=== PATIENT | male | born 1935 | race Caucasian/White ===

== ENCOUNTER 2018-11-08 15:43 | Outpatient (CLI) | payer OTHER, SELFPAY ==
[2018-11-08] MEDS ORDERED: Lidocaine 2% 11 ML SYR ONE (17:24)
[2018-11-08] MEDS ORDERED: Sodium Chloride 0.9% 15 ML NEB ONE (17:24)
--- NOTE | 2018-11-08 17:31 | HP ---
HISTORY OF PRESENT ILLNESS: Mr. Gasper Lynch is a very pleasant 83-year-old gentleman, who presents [facility] for evaluation of an ulceration of the plantar surface of the left great toe. The patient states that the ulceration has been present for approximately 5 years. He states that over this period of time, he has an ulceration with a dry dressing. He states that intermittently he also treats the ulceration with triple antibiotic ointment. The patient was referred to the [facility]ound [facility] by Dr. Dsouza. The patient has no other complaints today. He denies any fever or chills. PAST MEDICAL HISTORY: 1. Hypertension. 2. Diabetes mellitus. 3. Atrial fibrillation. 4. Sick sinus syndrome. 5. Benign prostatic hypertrophy. PAST SURGICAL HISTORY: 1. Tonsillectomy. 2. Right second toe amputation, date of procedure 10/30/2008. 3. Amputation of right great third and more proximal second toe amputation, date of procedure 11/10/2008. 4. Pacemaker placement. 5. Right hip replacement. 6. ORIF of distal humerus fracture. MEDICATIONS: 1. Coreg. 2. Coumadin. 3. Metformin. 4. Glyburide. 5. Stool softener. 6. Flomax. 7. Tylenol p.r.n. ALLERGIES: NO KNOWN DIAGNOSED ALLERGIES. SOCIAL HISTORY: Social history is negative for tobacco or EtOH use. FAMILY HISTORY: Family history significant for coronary artery disease. The patient states that his mother was diagnosed with coronary artery disease. PHYSICAL EXAMINATION: VITAL SIGNS: Pulse 79, respirations 19, and blood pressure 159/75. GENERAL: An 83-year-old gentleman, sitting on the stretcher in examination room, in no acute distress. HEENT: Normocephalic and atraumatic. NECK: No nuchal rigidity. CHEST: Clear to auscultation. CV: Regular rate and rhythm. ABDOMEN: Soft. EXTREMITIES: An ulceration of the plantar surface of the left great toe is present, which measures approximately 1.0 x 1.4 cm. Granulation tissue is present within the wound margins. Nonviable tissue present within the wound margins was debrided with an excisional full-thickness debridement with the use of a curette. Callus, desiccated tissue, and undermining at the periphery of the wound were eliminated with the use of scissors. No purulent drainage is associated with the wound. No erythema of the skin surrounding the wound is present. No maceration of the skin of the periwound is noted. Posterior tibial pulse is easily palpable on the left. No significant edema of the left foot is present on exam today. NEUROLOGIC: Grossly nonfocal. ASSESSMENT AND PLAN: 1. Ulceration of plantar surface of the left great toe as described above. Dressing changes of Medihoney and gauze will be initiated today. These dressing changes are to be performed on a daily basis after cleansing and irrigation. No antibiotics will be prescribed today based upon the appearance of the wound. The importance of offloading and achieving the healing of the ulceration has been discussed at length with the patient. I will see Mr. Lynch again in 3 weeks. The patient understands and is in agreement with the preceding treatment plan. 2. Hypertension. 3. Diabetes mellitus. 4. Atrial fibrillation. 5. Sick sinus syndrome. 6. Benign prostatic hypertrophy. Job ID: [id number]
== END 2018-11-08 15:44 | disposition home or self-care (01) ==
LOC: WCC 15:43
PROVIDERS: ATTEND Family Medicine
DX: E11.621 Type 2 diabetes mellitus with foot ulcer (principal); L97.529 Non-pressure chronic ulcer of other part of left foot with unspecified severity; I48.91 Unspecified atrial fibrillation; I10 Essential (primary) hypertension; I49.5 Sick sinus syndrome; N40.0 Benign prostatic hyperplasia without lower urinary tract symptoms
CPT/HCPCS: 11042; 99203; A4218; G0463

== ENCOUNTER 2019-02-06 04:46 | Inpatient (IN) | payer MEDICARE, SELFPAY ==
[2019-02-06 05:22] LABS: #Basophils 0.1 thou/uL (0.0-0.2); #Eosinphils 0.5 thou/uL (0.0-0.7); #Lymphocytes 0.9 thou/uL (1.20-3.40); #Monocytes 0.7 thou/uL (0.11-0.59); #Neutrophils 10.9 thou/uL (1.40-6.50); %Basophils 0.6 % (0.0-1.0); %Lymphocytes 6.6 % (21.0-51.0); %Monocytes 5.2 % (0.0-10.0); %Neutrophils 83.5 % (42.0-75.0); Mean Corpuscular HGB CONC 31.6 g/dL (32.0-36.0); Mean Corpuscular Hemoglobin 30.1 pg (27.0-31.0); Mean Corpuscular Volume 95.1 fL (78.0-98.0); Mean Platelet Volume 7.1 fL (7.4-10.4); Platelet Count 274 thou/uL (130-400); RBC Distribution Width 12.8 % (11.5-14.5); Red Blood Cell (RBC) Count 3.34 mill/uL (4.70-6.10)
[2019-02-06 05:43] LABS: ALT (SGPT) 18 U/L (8-55); AST (SGOT) 30 U/L (5-34); Albumin 3.8 g/dL (3.4-4.8); Alkaline Phosphatase 119 U/L (40-150); Anion Gap 16 mmol/L (10-20); BUN (Urea Nitrogen) 19 mg/dL (8.4-25.7); Bilirubin, Total 1.3 mg/dL (0.2-1.2); Calc. Creatinine Clearance 0 mL/min (70-130); Calcium 8.8 mg/dL (7.8-10.44); Carbon Dioxide 19 mmol/L (23-31); Chloride 96 mmol/L (98-107); Estimated GFR-MDRD 81; Globulin 2.7 g/dL (2.4-3.5); Glucose 203 mg/dL (83-110); Potassium 4.5 mmol/L (3.5-5.1); Protein, Total 6.5 g/dL (5.8-8.1); Sodium 126 mmol/L (136-145)
[2019-02-06 06:17] LABS: PTT 66.9 SEC (22.9-36.1); Prothrombin Time 71.3 SEC (12.0-14.7)
[2019-02-06 06:19] LABS: INR-International Normal Ratio 8.8
[2019-02-06] MEDS ORDERED: Phytonadione 10 MG/ML AMP SLOW IVP SCH (06:30)
[2019-02-06] MEDS ORDERED: HUM PROTHROMBIN CPLX(PCC)4FACT 1,000 UNIT in Admixture Fee 40 EACH IV SCH (07:00)
--- NOTE | 2019-02-06 07:03 | CT ---
CT HEAD WITHOUT CONTRAST: INDICATIONS: Fall with head injury. Pain. COMPARISON Reference made to an 02/27/2015 exam. FINDINGS: There is mild age-related parenchymal volume loss with compensatory dilatation of the ventricular sys tem. There is a small hyperdensity of the anterior right temporal lobe with some rounding linear-rodolfo ented hyperattenuation. No significant mass effect. The calvarium is intact. There is persistent c omplete opacification of the visualized right maxillary sinus. IMPRESSION: Abnormal round hyperdensity, approximately 6 mm in size, with surrounding linear-oriented hyperattenu ation that may relate to subarachnoid hemorrhage related to this finding. Recommend [facility] of the [place] for further evaluation. Telephone call of findings placed to the ER physician, Yoli Lugo M.D., at 0538 hours on 9. CODE CR POS: [facility]
[2019-02-06] MEDS ORDERED: Phytonadione 10 MG/ML AMP ONE (07:08)
[2019-02-06 07:34] LABS: Lactic Acid 1.3 mmol/L (0.5-2.2)
--- NOTE | 2019-02-06 07:53 | RAD ---
PORTABLE CHEST ONE VIEW: 02/06/2019 5:25 a.m. HISTORY: Syncope. COMPARISON: 02/27/2015 FINDINGS: A left-sided pacemaker device remains in place. The heart size is normal. The lungs are well expand ed without focal areas of consolidation, pneumothoraces, or pleural effusions. There is a questionab le mass in the right suprahilar region. This should be evaluated with a CT scan. CODE T CODE LN POS: [facility]
--- NOTE | 2019-02-06 08:01 | RAD ---
RIGHT FEMUR TWO VIEWS: HISTORY: Fall one day ago with right hip pain. COMPARISON: 12/17/2013 FINDINGS: Two views of the right femur show the patient to be status post right hip arthroplasty without periha rdware lucency or fracture. Heterotopic bone formation is seen, superior to the greater trochanter. Moderate to severe degenerative changes are seen in the right knee. IMPRESSION: No evidence of acute osseous abnormality. POS: [facility]
--- NOTE | 2019-02-06 08:07 | RAD ---
SINGLE VIEW PELVIS: HISTORY: Fall with right hip pain and right leg pain. COMPARISON: 06/07/2014 FINDINGS: A single view of the pelvis shows no evidence of acute fracture or dislocation. The patient has a ri ght hip prosthesis. There are remove healed fractures of the right superior and inferior pubic rami. Heterotopic bone formation is seen above the right greater trochanter and along the left lesser tro chanter. IMPRESSION: No evidence of acute osseous abnormality. POS: [facility]
[2019-02-06] MEDS ORDERED: Acetaminophen 500 MG TAB ONE (08:25)
[2019-02-06] MEDS ORDERED: Acetaminophen 1,000 MG in Premix Bag 1 BAG IVPB SCH (08:30)
[2019-02-06 08:48] LABS: INR-International Normal Ratio 2.2; PTT 39.1 SEC (22.9-36.1); Prothrombin Time 24.1 SEC (12.0-14.7)
[2019-02-06] MEDS ORDERED: Dextrose 50% Abboject 50 ML SYRINGE SLOW IVP PRN (09:24)
[2019-02-06] MEDS ORDERED: Ondansetron PF 4 MG/2 ML Vial IVP PRN (09:24)
[2019-02-06] MEDS ORDERED: Dextrose 5% in Water 1,000 ML IV PRN (09:24)
[2019-02-06] MEDS ORDERED: Promethazine HCl 25 MG/ML VIAL IM PRN (09:24)
--- NOTE | 2019-02-06 09:41 | CT ---
PELVIC CT SCAN WITHOUT IV CONTRAST: Date: 02/06/19 HISTORY: Injury due to trauma, acetabular fracture. FINDINGS: Total right hip replacement changes are noted with some associated soft tissue ossification changes, as well as some prominent enthesophytic ossification changes involving the left lesser tuberosity and the iliopsoas tendon insertion. Old healed fracture with associated deformity involving the right tracy perior ischiopubic ramus. Comminuted acetabular fracture is noted, including comminuted anterior column component with a vertic ally oriented displaced fracture, with up to 7 mm of displacement extending into the anterior iliac w ing. Nondisplaced posterior column fracture into the margin of the ischiopubic ramus. IMPRESSION: Acute comminuted acetabular fracture as above. Total right hip replacement changes with extensive met al artifact. Old, healed right superior and inferior ischiopubic rami fractures. Extensive ossificati on at the iliopsoas lesser tuberosity insertion on the left. POS: [facility]
[2019-02-06] MEDS: Sodium Chloride 0.9% 1,000 ML IV SCH ×2 (09:50→18:01)
[2019-02-06] MEDS ORDERED: Morphine 2 MG/ML SYRINGE SLOW IVP PRN (10:06)
--- NOTE | 2019-02-06 10:36 | CON ---
DATE OF CONSULTATION: CHIEF COMPLAINT: Right hip pain. HISTORY OF PRESENT ILLNESS: Mr. Lynch is an 83-year-old male, who was bringing his trash can yesterday evening. The patient lost balance and fell. He fell at the edge of the driveway into a drainage ditch. He had pain in the hip. He was unable to ambulate. He was taken to the emergency department by EMS. X-rays were obtained, which demonstrated an acetabulum fracture on the right hip. Remainder of trauma workup has also revealed a subarachnoid hemorrhage on his brain CT scan. He is being admitted to the hospital, but is currently still in the emergency department. He is comfortable at rest. He is awake and alert and talkative. I have treated the patient approximately 3 years ago for a distal humerus fracture as well. PAST MEDICAL HISTORY: Includes hypertension, diabetes, atrial fibrillation, and sick sinus syndrome as well as BPH. PAST SURGICAL HISTORY: Tonsillectomy; previous right first and second toe removal, amputation; open reduction and internal fixation of right distal humerus fracture; and right hemiarthroplasty for fracture. MEDICATIONS: 1. Coreg. 2. Metformin. 3. Glyburide. 4. Flomax. 5. Tylenol. 6. This patient takes stool softeners. 7. Coumadin. ALLERGIES: NO KNOWN DRUG ALLERGIES. SOCIAL HISTORY: The patient denies tobacco, alcohol, or drug use. He lives independently with his . PHYSICAL EXAMINATION: VITAL SIGNS: Stable. The patient is normotensive, 98% on room air. GENERAL: He is lying supine, alert, in no apparent distress. HEENT: Normocephalic and atraumatic. RESPIRATORY: Breathing comfortably. ABDOMEN: Soft, nontender, and nondistended. MUSCULOSKELETAL: The patient's right leg has pain with motion. He is able to flex and extend the foot and ankle. He has a warm and well-perfused foot. Palpable pulses. He has pain with hip motion. IMAGING DATA: X-rays of the pelvis as well as CT scan of the pelvis demonstrate an anterior column type acetabular fracture with slight displacement. There is osteoporotic appearance of the bone. The patient has a hemiarthroplasty, which is in place without evidence of loosening. The fracture is acute. IMPRESSION: Right acetabulum fracture with history of hemiarthroplasty in an elderly male. PLAN: At this point, I think the patient will best be treated with nonoperative management of his acetabular fracture. We can allow this to heal as is. I think the fixation would be difficult given that he has osteoporotic bone. If he developed ongoing pain or post-traumatic arthritis, we could convert his hemiarthroplasty to a total hip arthroplasty in the future. Hopefully, this would not be necessary. For now, he can be toe-touch weightbearing on the right side and can mobilize with the physical therapy. He will need observation for his head injury as well. He likely will need placement to rehab facility until he is more mobile. We will continue to follow. Job ID: [id number]
[2019-02-06] MEDS: HumaLOG 300 UNITS/3 ML VIAL SC PRN ×2 (12:13→22:31)
--- NOTE | 2019-02-06 15:45 | HP ---
TRAUMA SURGEON: Dr. Cash. CONSULTING PHYSICIAN: Dr. Venegas of Neurosurgery and Dr. Lynch of Orthopedic Surgery. HISTORY OF PRESENT ILLNESS: The patient is an 83-year-old male who presented to the emergency department via EMS after he had a mechanical fall into a ditch. The patient reported he had just brought up the trash cans from the end of the road when it tipped over and he fell with the trash cans into a ditch about 5 to 6 feet. The patient is on Coumadin. He is not exactly sure why he takes Coumadin. He reports he did have a loss of consciousness as well. His neighbor saw him, and his GCS was 15. He was alert and awake and oriented x3. Upon his arrival, EMS was contacted. The patient also complained of right thigh and hip tenderness. Evaluation by the emergency room physician demonstrated the patient had concern for a right hyperdensity with questionable surrounding subarachnoid hemorrhage as well as a right-sided acetabular fracture near his right hip prosthesis. Dr. Venegas of Neurosurgery and Dr. Lynch of Orthopedic Surgery were both consulted. The patient also had an INR of 8.8 for which he was given Kcentra and 10 mg of vitamin K in the emergency department. The patient also was hyponatremic with a sodium of 126 and a chloride of 96. He did report that he had not been eating and drinking as well as previously and did have recent exposure to significant heat outside for which he says that he feels he is dehydrated and then was not able to get enough water intake. REVIEW OF SYSTEMS: All additional 10-point review of systems negative except as indicated above. PAST MEDICAL HISTORY: The patient is a poor historian, but reports he has a pacemaker and diabetes. PAST SURGICAL HISTORY: Right elbow surgery, right hip replacement, and a pacemaker placement. SOCIAL HISTORY: The patient lives at home with his and uses a cane to ambulate sometimes. He denies drug, alcohol, or tobacco use. MEDICATIONS: The patient is not sure about all medications that he takes, but he does report taking Coumadin, metformin, and a laxative daily. ALLERGIES: PENICILLIN. PHYSICAL EXAMINATION: VITAL SIGNS: Temperature 98, pulse 60, respirations 18, oxygen saturation 98% on room air, and blood pressure 110/62. PRIMARY SURVEY: Airway intact. Adequate breath sounds bilaterally. 2+ pulses in the bilateral radials, femorals, and DPs. GCS is 15. Gross motor and sensation are intact. No lacerations or bruising. Small skin tear to the right elbow. SECONDARY SURVEY: HEAD: Normocephalic and atraumatic. No gross palpable skull deformities or tenderness. EYES: Pupils are 3 to 2, equal, round, and reactive to light bilaterally. ENT: No hemotympanum. No epistaxis. No septal hematoma. Midface stable to manipulation. No blood in the oropharynx. Dentition is intact. No anterior neck injury/crepitus/tenderness. C-SPINE: No step-offs or deformities. Mild right-sided lateral neck tenderness. C-collar not in place. CHEST: Nontender. No crepitus. No abrasions or ecchymosis. Equal chest movement. ABDOMEN: Soft, nontender, and nondistended. PELVIS: Stable to manipulation. Nontender. No abrasions or ecchymosis. RECTAL: Deferred. GENITOURINARY: Normal external genitalia. EXTREMITIES: No swelling of the right thigh. No abrasions or ecchymosis. 2+ pulses in the bilateral radials, femorals, and DPs bilaterally. BACK/SPINE: No step-offs, deformities, or tenderness to palpation of the thoracic or lumbar spine. No abrasions or ecchymosis. NEUROLOGIC: 5/5 strength in the bilateral community relations specialist, plantar flexion, and dorsiflexion. Gross normal sensation x4 extremities. LABORATORY FINDINGS: White count 13.0, hemoglobin 10.0, hematocrit 31.5, and platelets 274. INR 8.8 and followup was 2.2. Sodium 126, potassium 4.5, chloride 96, carbon dioxide 19, BUN 19, creatinine 0.89, glucose 203, lactic acid 1.3. Troponin less than 0.010. DIAGNOSTIC FINDINGS: X-ray of the right femur demonstrates no evidence of acute osseous abnormalities. Chest x-ray demonstrates a left-sided pacemaker device remains in place. The heart size is normal. The lungs are well expanded without focal areas of consolidation, pneumothoraces, or pleural effusion. There is a questionable mass in the right perihilar region. This should be evaluated with a CT scan. X-ray of the pelvis demonstrates no evidence of acute osseous abnormalities. CT of the brain demonstrates abnormal round hyperdensity approximately 6 mm in size with surrounding linear oriented hyperattenuation that may represent the subarachnoid hemorrhage related to this finding. CT of the pelvis demonstrates acute comminuted acetabular fracture as above. Total right hip replacement changes with extensive metal artifact. Old healed right superior and inferior ischiopubic rami fractures. Extensive ossification of the iliopsoas, lesser tuberosity insertion on the left. ASSESSMENT: 1. Status post mechanical fall down a ditch about 5 or 6 feet, on Coumadin. 2. Right-sided acetabular fracture. 3. Round hyperdensity with possible surrounding subarachnoid hemorrhage. 4. Supratherapeutic INR. 5. Hyponatremia. 6. Acute dehydration. 7. History of pacemaker placement and diabetes. Unsure why the patient is on Coumadin at this time. PLAN: The patient received 500 mL bolus over 2 hours in the emergency department, then followed by 500 mL of normal saline afterwards we will monitor urinary output and vital signs. Repeat INR demonstrated value of 2.2 from 8.8. We will repeat in the morning as well. Orthopedic Surgery has been consulted, who recommended nonoperative management and toe-touch weightbearing on the right lower extremity. They will continue to follow, and we will have Physical and Occupational Therapy work with the patient and have the patient be evaluated for possible rehab placement. Dr. Venegas of Neurosurgery has also seen the patient, and we are waiting for their recommendations. In the meantime, we will complete q.1 hour neuro checks in the IMCU and continue to monitor his neurological exam due to his supratherapeutic INR. We will continue to follow up with Dr. Venegas for any further recommendations related to this possible subarachnoid hemorrhage. We will start his home medications as clinically indicated while holding the metformin and placing him on insulin sliding scale. We will also hold any anticoagulation at this time. Patient was discussed with Dr. Cash and the patient was seen and examined by Dr. Mcclure and myself this morning. Job ID: [id number] [facility]
[2019-02-06] MEDS ORDERED: traMADol HCl 50 MG TAB PO PRN ×2 (18:17)
[2019-02-06] MEDS: Acetaminophen 500 MG TAB PO SCH (19:13)
[2019-02-06] MEDS: Terazosin HCl 1 MG CAP PO SCH (21:01)
[2019-02-06] MEDS: Famotidine 20 MG TAB PO SCH (21:01)
[2019-02-06] MEDS: Carvedilol 6.25 MG TAB PO SCH (21:01)
[2019-02-06] MEDS ORDERED: Melatonin 3 MG TAB PO PRN (22:03)
[2019-02-06] MEDS ORDERED: Insulin Regular 300 UNITS/3 ML VIAL SC PRN (22:12)
[2019-02-07] MEDS: Acetaminophen 500 MG TAB PO SCH ×2 (00:55→05:36)
[2019-02-07] MEDS: Sodium Chloride 0.9% 1,000 ML IV SCH (01:07)
[2019-02-07 05:02] LABS: #Eosinphils 0.4 thou/uL (0.0-0.7); #Lymphocytes 1.3 thou/uL (1.20-3.40); #Neutrophils 8.7 thou/uL (1.40-6.50); %Basophils 0.3 % (0.0-1.0); %Eosinophils 3.4 % (0.0-10.0); %Lymphocytes 11.2 % (21.0-51.0); %Monocytes 8.4 % (0.0-10.0); %Neutrophils 76.8 % (42.0-75.0); Hemoglobin 8.6 g/dL (14.0-18.0); Mean Corpuscular HGB CONC 32.8 g/dL (32.0-36.0); Mean Corpuscular Hemoglobin 31.5 pg (27.0-31.0); Mean Corpuscular Volume 96.1 fL (78.0-98.0); Mean Platelet Volume 7.5 fL (7.4-10.4); Platelet Count 209 thou/uL (130-400); RBC Distribution Width 12.9 % (11.5-14.5); Red Blood Cell (RBC) Count 2.74 mill/uL (4.70-6.10); White Blood Cell (WBC) Count 11.3 thou/uL (4.8-10.8)
[2019-02-07 05:06] LABS: INR-International Normal Ratio 1.4; Prothrombin Time 17.5 SEC (12.0-14.7)
[2019-02-07 05:21] LABS: Anion Gap 14 mmol/L (10-20); BUN (Urea Nitrogen) 22 mg/dL (8.4-25.7); Calc. Creatinine Clearance 62 mL/min (70-130); Calcium 8.2 mg/dL (7.8-10.44); Carbon Dioxide 19 mmol/L (23-31); Chloride 94 mmol/L (98-107); Estimated GFR-MDRD 87; Glucose 174 mg/dL (83-110); Magnesium 1.4 mg/dL (1.6-2.6); Phosphorus 2.1 mg/dL (2.3-4.7); Potassium 4.1 mmol/L (3.5-5.1); Sodium 123 mmol/L (136-145)
[2019-02-07] MEDS ORDERED: Sodium Chloride 1 GM TAB PO SCH ×3 (06:00→09:00)
[2019-02-07] MEDS: HumaLOG 300 UNITS/3 ML VIAL SC PRN ×2 (06:11→21:13)
[2019-02-07] MEDS ORDERED: Magnesium Sulfate 2 GM in Sodium Chloride 0.9% 100 ML IVPB SCH (06:15)
[2019-02-07] MEDS ORDERED: Magnesium 2 GM/50 ML 2 GM in Premix Bag 1 BAG IVPB SCH (06:30)
[2019-02-07] MEDS ORDERED: Sodium Phosphate 30 MMOL in Sodium Chloride 0.9% 250 ML 250 ML IVPB SCH (07:00)
--- NOTE | 2019-02-07 07:30 | CT ---
CT OF HEAD NONCONTRAST: COMPARISON: Previous day. INDICATION: Hemorrhage, followup. FINDINGS: Redemonstration of a round hyperdensity of the right temporal lobe, with surrounding linear oriented subarachnoid hemorrhage. There is also a small volume of subarachnoid hemorrhage within the right am bient cistern. No associated mass effect. Ventricular system is stable in size. Exam is otherwise stable appearing. IMPRESSION: Persistent round hyperdensity at the anterior right temporal lobe, with linear oriented surrounding s ubarachnoid hemorrhage. There is mild extension of subarachnoid hemorrhage into the right ambient ci cueva. POS: [facility]
[2019-02-07 07:56] VITALS: BMI 23.7
[2019-02-07] MEDS ORDERED: SODIUM CHLORIDE IV SCH (09:00)
[2019-02-07] MEDS: Famotidine 20 MG TAB PO SCH ×2 (10:37→21:10)
[2019-02-07] MEDS: Sodium Chloride 1 GM TAB PO SCH ×3 (10:37→21:11)
[2019-02-07] MEDS: Carvedilol 6.25 MG TAB PO SCH ×2 (10:37→21:10)
[2019-02-07] MEDS: Senokot S 8.6-50 MG TAB PO SCH ×2 (10:38→13:08)
[2019-02-07] MEDS: Acetaminophen 325 MG TAB PO SCH ×2 (13:07→18:59)
--- NOTE | 2019-02-07 13:42 | PRG ---
DATE OF SERVICE: 02/07/2019 SUBJECTIVE: Mr. Lynch is an 83-year-old man status post a ground level fall. The patient sustained a small subarachnoid hemorrhage as well as the right acetabular fracture, which is being managed nonoperatively per Orthopedic Surgery. Overnight, the patient developed intermittent episodes of confusion but easily reoriented. This morning, he is awake and alert. He was sitting up for breakfast. He moves all extremities and follows commands. [place] Coma Scale is E4, V4, M6. Repeat CT scan of the brain this morning revealed a stable acute traumatic brain injury. PHYSICAL EXAMINATION: VITAL SIGNS: This morning include blood pressure 145/60, pulse 61, respiratory rate is 23, temperature is 99.5 degrees Fahrenheit, oxygen saturation is 96% on 2 L by nasal cannula oxygen. HEENT: Examination reveals pupils are equal, round, reactive to light and accommodation. HEART: Reveals regular rate and rhythm. No murmurs or gallops auscultated. LUNGS: Clear to auscultation bilaterally. Breathing, regular and nonlabored. ABDOMEN: Soft, nontender, and nondistended. EXTREMITIES: Reveal 2+ radial and pedal pulses bilaterally. No ankle edema is present. NEUROLOGIC: Reveals no focal deficits present. LABORATORY FINDINGS: Today include CBC with 11,300 white blood cells. Hemoglobin and hematocrit 8.6 and 26.3 respectively. The platelet count is 209,000. Metabolic profile: Sodium 123, potassium is 4.1, chloride is 94, bicarb is 19, BUN is 22, creatinine 0.84, glucose 174, magnesium is 1.4 and phosphorus is 2.1. IMPRESSIONS: 1. Post injury day#1 status post ground level fall. 2. Stable right acetabular fracture. 3. 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 4. Acute hyponatremia. 5. Acute hypomagnesemia. 6. Acute hypophosphatemia. 7. Acute delirium, likely secondary to metabolic encephalopathy. PLAN: 1. Correct abnormal electrolytes. We will initiate hypertonic saline and monitor patient's sodium accordingly. 2. From a neurological standpoint, the patient is stable for transfer to general surgical floor. 3. We will increase activity per Physical and Occupational therapy. 4. Above findings and plan discussed with the patient. Job ID: [id number]
[2019-02-07] MEDS ORDERED: Prevnar 13-Val Conj/PF 0.5 ML SYRINGE IM ONE (13:45)
[2019-02-07 16:40] LABS: Anion Gap 13 mmol/L (10-20); BUN (Urea Nitrogen) 18 mg/dL (8.4-25.7); Calc. Creatinine Clearance 64 mL/min (70-130); Calcium 8.1 mg/dL (7.8-10.44); Carbon Dioxide 19 mmol/L (23-31); Chloride 97 mmol/L (98-107); Estimated GFR-MDRD 86; Glucose 227 mg/dL (83-110); Potassium 4.3 mmol/L (3.5-5.1); Sodium 125 mmol/L (136-145)
[2019-02-07 18:58] LABS: Bilirubin Negative (Negative); Blood, Urine Negative (Negative); Clarity Clear (Clear); Glucose, Urine (Dipstick) 500 mg/dL (Negative); Leukocyte Negative Leu/uL (Negative); Nitrite Negative (Negative); Protein, Urine (Dipstick) Negative (Neg-Trace); Urobilinogen Normal mg/dL (Less than 2)
[2019-02-07] MEDS: Terazosin HCl 1 MG CAP PO SCH (21:11)
[2019-02-07 23:02] LABS: Anion Gap 11 mmol/L (10-20); BUN (Urea Nitrogen) 19 mg/dL (8.4-25.7); Calc. Creatinine Clearance 66 mL/min (70-130); Calcium 7.9 mg/dL (7.8-10.44); Carbon Dioxide 21 mmol/L (23-31); Chloride 100 mmol/L (98-107); Estimated GFR-MDRD 89; Glucose 259 mg/dL (83-110); Potassium 3.9 mmol/L (3.5-5.1); Sodium 128 mmol/L (136-145)
[2019-02-08] MEDS: Acetaminophen 325 MG TAB PO SCH ×5 (00:23→23:37)
[2019-02-08 05:19] LABS: Anion Gap 11 mmol/L (10-20); BUN (Urea Nitrogen) 15 mg/dL (8.4-25.7); Calc. Creatinine Clearance 68 mL/min (70-130); Carbon Dioxide 20 mmol/L (23-31); Chloride 104 mmol/L (98-107); Estimated GFR-MDRD Greater than 90; Glucose 198 mg/dL (83-110); Magnesium 1.8 mg/dL (1.6-2.6); Phosphorus 2.5 mg/dL (2.3-4.7); Potassium 3.9 mmol/L (3.5-5.1); Sodium 131 mmol/L (136-145)
--- NOTE | 2019-02-08 07:32 | CON ---
DATE OF CONSULTATION: 02/06/2019 TIME OF ENCOUNTER: At 0645. HISTORY OF PRESENT ILLNESS: Mr. Lynch is an 83-year-old man who had a fall yesterday evening, February 05, 2019, at home with onset of right hip pain. He also struck his head with a slight abrasion to his right temporal scalp. CT scan was performed in the department that reveals small round well-circumscribed hyperdensity that could potentially represent subarachnoid hemorrhage, but to me it looked almost lesional in appearance, though there is no edema around this lesion. There is a small ring of hypodensity around it. The patient does have an INR of 8 and is on Coumadin. At bedside, he appears very well. He reports to me what happened yesterday evening. He states that he has some right hip pain, but otherwise does not have any significant concerns at this time. He understands where he is, his date of , his name, the current month, the current year, and asks me about some current events regarding the hospital's purchase of [facility], so it appears that his mental status is completely unaffected by whatever this may be that we found on the CT. From Neurosurgery's perspective, this is definitively nonsurgical. We would recommend imaging in the outpatient setting unless there is a neurologic change in-house. We will follow up in 4 to 6 weeks in clinic. Job ID: [id number]
[2019-02-08] MEDS: Carvedilol 6.25 MG TAB PO SCH ×2 (09:01→20:50)
[2019-02-08] MEDS: Famotidine 20 MG TAB PO SCH ×2 (09:07→20:47)
[2019-02-08] MEDS: Senokot S 8.6-50 MG TAB PO SCH (09:09)
[2019-02-08] MEDS: Sodium Chloride 1 GM TAB PO SCH ×3 (09:09→20:47)
[2019-02-08] MEDS: HumaLOG 300 UNITS/3 ML VIAL SC PRN ×3 (11:38→22:22)
--- NOTE | 2019-02-08 12:40 | PRG ---
DATE OF SERVICE: 02/08/2019 SUBJECTIVE: Mr. Lynch is an 83-year-old man, who is post injury day #2, status post ground-level fall. The patient sustained now stable acute traumatic brain injury with subarachnoid hemorrhage as well as right acetabular fracture, which has been managed nonoperatively. This morning, he is awake and alert. [place] Coma Scale is 15. The patient reports adequate pain control. He is participating well with physical therapy. Urinary output is adequate for his age. He is tolerating general diet, having bowel movement. OBJECTIVE: VITAL SIGNS: This morning include blood pressure 136/57, pulse is 66, respiratory rate is 16, temperature is 98.4 degrees Fahrenheit, and oxygen saturation is 98% on room air. HEENT: Pupils equal, round, and reactive to light and accommodation. NECK: He has no jugular venous distention noted. HEART: Regular rate and rhythm. LUNGS: Clear to auscultation bilaterally. Breathing, regular and nonlabored. ABDOMEN: Soft, nontender, and nondistended. EXTREMITIES: 2+ radial and pedal pulses bilaterally. NEUROLOGIC: No focal deficits present. LABORATORY FINDINGS: Metabolic profile; sodium is 131, potassium is 3.9, chloride is 104, bicarb is 20, BUN is 15, creatinine is 0.80, glucose is 198, magnesium is 1.8, and phosphorus is 2.5. IMPRESSION: 1. Post injury day #2, status post ground-level fall. 2. Stable acute traumatic brain injury. 3. Right acetabular fracture, stable. 4. Acute on chronic hyponatremia. The patient is now stabilized to baseline chronic hyponatremia. PLAN: 1. Increase activity per Physical and Occupational Therapy. 2. Anticipate discharge to inpatient rehabilitation once bed availability and insurance authorization has been secured. 3. Above findings plan discussed with the patient, who indicates understanding of information given. Job ID: [id number]
[2019-02-08] MEDS: Terazosin HCl 1 MG CAP PO SCH (20:48)
[2019-02-09 04:56] LABS: #Basophils 0.1 thou/uL (0.0-0.2); #Eosinphils 0.5 thou/uL (0.0-0.7); #Lymphocytes 1.7 thou/uL (1.20-3.40); #Neutrophils 5.2 thou/uL (1.40-6.50); %Basophils 0.9 % (0.0-1.0); %Eosinophils 5.6 % (0.0-10.0); %Lymphocytes 19.8 % (21.0-51.0); %Monocytes 12.1 % (0.0-10.0); %Neutrophils 61.6 % (42.0-75.0); Hemoglobin 8.2 g/dL (14.0-18.0); Mean Corpuscular HGB CONC 32.1 g/dL (32.0-36.0); Mean Corpuscular Hemoglobin 30.8 pg (27.0-31.0); Mean Corpuscular Volume 95.8 fL (78.0-98.0); Mean Platelet Volume 7.7 fL (7.4-10.4); Platelet Count 207 thou/uL (130-400); RBC Distribution Width 13.3 % (11.5-14.5); Red Blood Cell (RBC) Count 2.67 mill/uL (4.70-6.10); White Blood Cell (WBC) Count 8.4 thou/uL (4.8-10.8)
[2019-02-09 05:16] LABS: Anion Gap 10 mmol/L (10-20); BUN (Urea Nitrogen) 10 mg/dL (8.4-25.7); Calc. Creatinine Clearance 74 mL/min (70-130); Calcium 8.2 mg/dL (7.8-10.44); Carbon Dioxide 22 mmol/L (23-31); Chloride 104 mmol/L (98-107); Estimated GFR-MDRD Greater than 90; Glucose 176 mg/dL (83-110); Magnesium 1.8 mg/dL (1.6-2.6); Potassium 4.1 mmol/L (3.5-5.1); Sodium 132 mmol/L (136-145)
[2019-02-09] MEDS: Acetaminophen 325 MG TAB PO SCH ×3 (05:54→16:57)
[2019-02-09] MEDS ORDERED: Magnesium 2 GM/50 ML 2 GM in Premix Bag 1 BAG IVPB SCH (08:00)
[2019-02-09] MEDS: Carvedilol 6.25 MG TAB PO SCH ×2 (09:04→20:13)
[2019-02-09] MEDS: Sodium Chloride 1 GM TAB PO SCH ×3 (09:04→20:15)
[2019-02-09] MEDS: Senokot S 8.6-50 MG TAB PO SCH (09:04)
[2019-02-09] MEDS: Famotidine 20 MG TAB PO SCH ×2 (09:05→20:13)
[2019-02-09] MEDS: HumaLOG 300 UNITS/3 ML VIAL SC PRN ×3 (12:18→22:17)
[2019-02-09] MEDS: hydrALAZINE 20 MG/ML VIAL SLOW IVP PRN (12:18)
[2019-02-09] MEDS ORDERED: Bisacodyl 10 MG SUPP PR PRN (12:26)
--- NOTE | 2019-02-09 13:32 | PRG ---
DATE OF SERVICE: 02/09/2019 SUBJECTIVE: The patient was seen this morning, sitting at edge of bed. He was working with Physical Therapy. He did report that he slept well overnight and he was tolerating his diet. He was moved yesterday from the ICU to the surgical floor and has had no acute events. Reports today that he was not able to walk as far with physical therapy as he had previously the day before. This was not limited by pain and further he said his leg was just not cooperating as well today. States that he has not had a bowel movement in a couple of days and is open to the idea of a suppository if needed. Did say that he would let the nurse know if he thought it was needed. He denies nausea, vomiting, or diarrhea at this time. OBJECTIVE: VITAL SIGNS: Temperature 98.3, pulse 62, respirations 16, oxygen saturation 97% on room air, blood pressure 144/68. GENERAL: Well-appearing elderly male, sitting up at edge of bed with no signs of acute distress. PULMONARY: Equal chest rise and fall. Clear breath sounds bilaterally. No signs of acute respiratory distress. CARDIAC: Regular rate and rhythm. No murmurs, gallops, or rubs. GI: Abdomen is soft, nontender, nondistended. EXTREMITIES: 2+ pulses in all extremities. No significant swelling noted. NEUROLOGIC: GCS is 15. Gross motor and sensation are intact. Pupils equal, round, reactive to light bilaterally. LABORATORY FINDINGS: White count 8.4, hemoglobin 8.2, hematocrit 25.6, platelets 207. Sodium 132, potassium is 4.1, chloride 104, carbon dioxide 22, BUN 10, creatinine 0.76, glucose 176, phos 2.0, magnesium 1.9. DIAGNOSTIC FINDINGS: There are no new diagnostic findings to report. ASSESSMENT: 1. Status post mechanical fall from standing, on Coumadin. 2. Subdural hematoma, stable. 3. Right acetabular fracture, status post repair. 4. Supratherapeutic INR, resolved. 5. Acute on chronic hyponatremia, which is improved. 6. Hypophosphatemia and hypomagnesemia. PLAN: The patient will continue to work with Physical and Occupational Therapy. He is pending placement at acute rehab facility. We will continue to hold IV fluids for the patient at this time as his sodium is improving. We will replace phosphorus and magnesium today. We will give the patient a Dulcolax suppository p.r.n. for bowel movement. He is pending placement at acute rehab facility. He is to be up in a chair b.i.d. and continue to work with Physical Therapy. The patient will be discussed with Dr. Mcclure after this dictation. Job ID: [id number]
--- NOTE | 2019-02-09 14:07 | EKG ---
Test Reason : Blood Pressure : / mmHG Vent. Rate : 060 BPM Atrial Rate : 056 BPM P-R Int : 000 ms QRS Dur : 194 ms QT Int : 516 ms P-R-T Axes : 000 -83 080 degrees QTc Int : 516 ms Electronic ventricular pacemaker Confirmed by VALARIE HATFIELD ([id number]), city editor JULIAN SHAH ([id number]) on 02/09/2019 2:07:31 PM Referred By: Confirmed By:VALARIE HATFIELD
[2019-02-09] MEDS: Terazosin HCl 1 MG CAP PO SCH (20:13)
[2019-02-10] MEDS: Acetaminophen 325 MG TAB PO SCH ×5 (00:16→23:03)
[2019-02-10] MEDS: HumaLOG 300 UNITS/3 ML VIAL SC PRN ×3 (06:43→16:14)
[2019-02-10 08:45] LABS: Anion Gap 9 mmol/L (10-20); BUN (Urea Nitrogen) 11 mg/dL (8.4-25.7); Calc. Creatinine Clearance 81 mL/min (70-130); Calcium 8.2 mg/dL (7.8-10.44); Carbon Dioxide 23 mmol/L (23-31); Chloride 103 mmol/L (98-107); Estimated GFR-MDRD Greater than 90; Glucose 231 mg/dL (83-110); Phosphorus 2.6 mg/dL (2.3-4.7); Potassium 4.3 mmol/L (3.5-5.1); Sodium 131 mmol/L (136-145)
[2019-02-10] MEDS: Famotidine 20 MG TAB PO SCH ×2 (08:53→21:11)
[2019-02-10] MEDS: Carvedilol 6.25 MG TAB PO SCH ×2 (08:53→21:12)
[2019-02-10] MEDS: Sodium Chloride 1 GM TAB PO SCH ×4 (08:53→21:11)
[2019-02-10] MEDS: Senokot S 8.6-50 MG TAB PO SCH ×2 (08:53→21:11)
[2019-02-10] MEDS: Polyethylene Glycol 3350 17 GM Packet PO SCH (08:53)
[2019-02-10] MEDS ORDERED: PHOS-NAK 1 PKT PACK PO SCH (09:15)
[2019-02-10] MEDS: hydrALAZINE 20 MG/ML VIAL SLOW IVP PRN ×2 (12:23→21:32)
--- NOTE | 2019-02-10 14:10 | PRG ---
DATE OF SERVICE: 02/10/2019 SUBJECTIVE: The patient is seen this morning, lying in bed. Reported he slept very well overnight and pain is well controlled. He is tolerating a regular diet. He has not had a bowel movement since the day of admission. He reported he tried a suppository earlier today and would possibly like to try an enema. He denies nausea or vomiting at this time. OBJECTIVE: VITAL SIGNS: Temperature 98.7, pulse 60, oxygen saturation 99% on room air, respirations 16, and blood pressure 129/77. GENERAL: Well-appearing elderly male, sitting up in bed with no signs of acute distress. PULMONARY: Equal chest rise and fall. Clear breath sounds bilaterally. No signs of acute respiratory distress. CARDIAC: Regular rate and rhythm. No murmurs, gallops, or rubs. GI: Abdomen is soft, nontender, and nondistended. EXTREMITIES: 2+ pulses in all extremities. No significant swelling noted. NEUROLOGIC: GCS is 15. Gross motor and sensation are intact. Pupils equal, round, and reactive to light bilaterally. LABORATORY FINDINGS: Sodium is 131, potassium 4.3, chloride 103, carbon dioxide 23, BUN 11, creatinine 0.67, glucose 231, phosphorus 2.6, and magnesium 2.0. ASSESSMENT: 1. Status post mechanical fall from standing on Coumadin. 2. Subdural hematoma, stable. 3. Right acetabular fracture, status post repair. 4. Supratherapeutic INR, resolved. 5. Acute on chronic hyponatremia, which is stable. 6. Hypophosphatemia. 7. Hyperglycemia. 8. History of diabetes, hypertension, atrial fibrillation, pacemaker, BPH, and sick sinus syndrome. PLAN: The patient is to receive an enema today for have a bowel movement. Increase sodium tablets to 4 times a day. We will increase the patient's sliding scale from mild to moderate as his glucose is not well controlled at this time. Continue current home medications and pain regimen as previously prescribed. The patient is pending placement in an acute rehab facility. The patient was discussed with Dr. Mcclure before this dictation. Job ID: [id number]
[2019-02-10] MEDS: Terazosin HCl 1 MG CAP PO SCH (21:11)
[2019-02-11 05:42] LABS: Anion Gap 12 mmol/L (10-20); BUN (Urea Nitrogen) 12 mg/dL (8.4-25.7); Calc. Creatinine Clearance 73 mL/min (70-130); Calcium 8.7 mg/dL (7.8-10.44); Carbon Dioxide 21 mmol/L (23-31); Chloride 103 mmol/L (98-107); Estimated GFR-MDRD Greater than 90; Glucose 180 mg/dL (83-110); Magnesium 1.8 mg/dL (1.6-2.6); Phosphorus 3.2 mg/dL (2.3-4.7); Potassium 4.3 mmol/L (3.5-5.1); Sodium 132 mmol/L (136-145)
[2019-02-11] MEDS: HumaLOG 300 UNITS/3 ML VIAL SC PRN ×3 (05:44→17:59)
[2019-02-11] MEDS: Acetaminophen 325 MG TAB PO SCH ×3 (05:44→17:59)
[2019-02-11] MEDS ORDERED: Magnesium 2 GM/50 ML 2 GM in Premix Bag 1 BAG IVPB SCH (07:15)
[2019-02-11] MEDS: Sodium Chloride 1 GM TAB PO SCH (08:42)
[2019-02-11] MEDS: Carvedilol 6.25 MG TAB PO SCH ×2 (08:42→20:17)
[2019-02-11] MEDS: Polyethylene Glycol 3350 17 GM Packet PO SCH (08:42)
[2019-02-11] MEDS: Senokot S 8.6-50 MG TAB PO SCH ×2 (08:43→20:16)
[2019-02-11] MEDS: Famotidine 20 MG TAB PO SCH ×2 (08:44→20:17)
--- NOTE | 2019-02-11 14:09 | PRG ---
DATE OF SERVICE: SUBJECTIVE: The patient was seen this morning lying in bed with no signs of acute distress. He reported he slept well overnight and had a bowel movement yesterday. Denies nausea, vomiting. Reports he is tolerating his regular diet and drinking his Glucerna shakes. PHYSICAL EXAMINATION: VITAL SIGNS: Temperature 97.6, pulse 60, respirations 14, oxygen saturation 97% on room air, blood pressure 148/79. GENERAL: Well-appearing elderly male, lying in bed with no signs of acute distress. PULMONARY: Equal chest rise and fall. Clear breath sounds bilaterally. No signs of acute respiratory distress. CARDIAC: Regular rate and rhythm. No murmurs, gallops, or rubs. GI: Abdomen is soft, nontender, nondistended. EXTREMITIES: 2+ pulses in all extremities. No significant swelling noted. Gross motor and sensation are intact. NEURO: GCS is 15. Pupils equal, round, reactive to light bilaterally. LABORATORY FINDINGS: Sodium 134, potassium 4.3, chloride 103, carbon dioxide 21, BUN 12, creatinine 0.74, glucose 180, phosphorus 3.2, magnesium 1.8. DIAGNOSTIC FINDINGS: There are no new diagnostic findings to discuss. ASSESSMENT: 1. Status post mechanical fall from standing on Coumadin. 2. Subdural hematoma, stable. 3. Right acetabular fracture, status post repair. 4. Supratherapeutic INR, resolved. 5. Acute on chronic hyponatremia, improving. 6. Hypomagnesemia. 7. History of diabetes, hypertension, atrial fibrillation, pacemaker, benign prostatic hypertrophy, and sick sinus syndrome. PLAN: Continue current diet and pain regimen. Continue physical and occupational therapy. The patient is ready for discharge at this time. He is pending placement in acute rehab. This patient was seen and examined by Dr. Mcclure and myself this morning during rounds. Job ID: [id number]
[2019-02-11 19:08] VITALS: BP 153/66; TEMP 98.3
[2019-02-11] MEDS: Terazosin HCl 1 MG CAP PO SCH (20:17)
[2019-02-11] MEDS ORDERED: Sodium Chloride 1 GM TAB PO SCH (21:00)
== END 2019-02-11 20:35 | DRG 963 ==
LOC: ERS 04:46 → ERHOLD 06:31 → IMCU/EMU 09:53 → SURG A 02-08 15:26
PROVIDERS: ADMIT Surgery; ATTEND Surgery
DX: S32.401A Unspecified fracture of right acetabulum, initial encounter for closed fracture (principal); S06.5X9A Traumatic subdural hemorrhage with loss of consciousness of unspecified duration, initial encounter; G93.41 Metabolic encephalopathy; E87.1 Hypo-osmolality and hyponatremia; W17.89XA Other fall from one level to another, initial encounter; Z96.641 Presence of right artificial hip joint; E86.0 Dehydration; E83.42 Hypomagnesemia; E83.39 Other disorders of phosphorus metabolism; I48.91 Unspecified atrial fibrillation; N40.0 Benign prostatic hyperplasia without lower urinary tract symptoms; I49.5 Sick sinus syndrome; E11.65 Type 2 diabetes mellitus with hyperglycemia; Z95.0 Presence of cardiac pacemaker; Z88.0 Allergy status to penicillin; Z79.84 Long term (current) use of oral hypoglycemic drugs; Z79.02 Long term (current) use of antithrombotics/antiplatelets; Z79.899 Other long term (current) drug therapy; Z79.01 Long term (current) use of anticoagulants
CPT/HCPCS: 36415; 36416; 70450; 71045; 72170; 72192; 80048; 80053; 81003; 83605; 83735; 84100; 84484; 85025; 85610; 85730; 93005; 96361; 96374; 96375; C9132; G0390; J0131; J0360; J1815; J2270; J2405; J3430; J3475; J7050

== ENCOUNTER 2019-05-15 14:58 | Inpatient (IN) | payer OTHER, MEDICARE ==
--- NOTE | 2019-05-15 16:15 | RAD ---
Exam 1 view pelvis Comparison 02/06/2019 HISTORY: Fall. Pain. Injury FINDINGS: Chronic changes to the left or right hip. Acute fracture is not appreciated. Limited evalua tion the sacrum. Stable acetabular protrusio of the right hip prosthesis. IMPRESSION: Stable AP pelvic radiograph. Additional imaging if the patient is unable to bear weight. Transcribed Date/Time: 05/15/2019 4:37 PM
--- NOTE | 2019-05-15 16:19 | RAD ---
Exam:2 views left hip HISTORY: Fall. Pain. COMPARISON: None FINDINGS: Extensive heterotopic bone formation along the lesser trochanter. Based on images provided, definite fracture cannot be excluded. Better interrogation with CT is recommended. IMPRESSION: Limited evaluation. Definite fracture cannot be excluded. CT is recommended.
--- NOTE | 2019-05-15 17:41 | CT ---
CT PELVIS WITHOUT CONTRAST: 05/15/19 Multiplanar reconstruction. INDICATIONS: Fall with injury to the left hip. FINDINGS: The bones are osteopenic. There is a comminuted fracture involving the left acetabulum. This involves the anterior and posterio r column. The femoral head and neck appear intact on the left. There is fracture of the left superior ischial ramus at its root. Fracture involving the left iliac wing at its base near the acetabulum. Right hip prosthesis is noted. There is abnormal lucency surrounding the acetabular component of this prosthesis. There is a fracture involving the roof of the right acetabulum along the roof of this ac etabular component. This is presumed acute. There is deformity of the right superior ramus from old injury. No definite acute fracture at this si te. Deformity of the right inferior ramus is also noted from old injury without definite acute fractu re. Sacrum is very osteopenic but appears intact. IMPRESSION: 1. Acute comminuted fracture of the left acetabulum with fractures of the root of the left super ior ischial ramus and fractures of the lower left iliac wing. 2. Acute fracture involving the roof of the acetabulum on the right over the acetabular componen t of the right hip prosthesis. POS: [facility]
[2019-05-15] MEDS ORDERED: Acetaminophen 325 MG TAB ONE (18:23)
[2019-05-15] MEDS ORDERED: Docusate 100 MG CAP PO SCH (18:30)
[2019-05-15 20:16] LABS: #Eosinphils 0.3 thou/uL (0.0-0.7); #Lymphocytes 1.1 thou/uL (1.20-3.40); #Monocytes 1.2 thou/uL (0.11-0.59); #Neutrophils 10.6 thou/uL (1.40-6.50); %Basophils 0.3 % (0.0-1.0); %Lymphocytes 8.3 % (21.0-51.0); %Neutrophils 80.4 % (42.0-75.0); Mean Corpuscular HGB CONC 33.1 g/dL (32.0-36.0); Mean Corpuscular Hemoglobin 31.3 pg (27.0-31.0); Mean Corpuscular Volume 94.4 fL (78.0-98.0); Mean Platelet Volume 7.4 fL (7.4-10.4); Platelet Count 196 thou/uL (130-400); RBC Distribution Width 12.4 % (11.5-14.5); Red Blood Cell (RBC) Count 3.83 mill/uL (4.70-6.10); White Blood Cell (WBC) Count 13.2 thou/uL (4.8-10.8)
[2019-05-15 20:23] LABS: INR-International Normal Ratio 2.6; Prothrombin Time 27.3 SEC (12.0-14.7)
[2019-05-15] MEDS ORDERED: Morphine 2 MG/ML SYRINGE SLOW IVP PRN (20:32)
[2019-05-15] MEDS ORDERED: Ondansetron PF 4 MG/2 ML Vial IVP PRN (20:32)
[2019-05-15] MEDS ORDERED: Dextrose 5% in Water 1,000 ML IV PRN (20:32)
[2019-05-15] MEDS ORDERED: Dextrose 50% Abboject 50 ML SYRINGE SLOW IVP PRN (20:32)
[2019-05-15] MEDS ORDERED: Promethazine HCl 25 MG/ML VIAL IM/IV PRN (20:32)
[2019-05-15] MEDS ORDERED: hydrALAZINE 20 MG/ML VIAL SLOW IVP PRN (20:32)
[2019-05-15 20:34] LABS: Anion Gap 13 mmol/L (10-20); BUN (Urea Nitrogen) 13 mg/dL (8.4-25.7); Calc. Creatinine Clearance 0 mL/min (70-130); Calcium 9.1 mg/dL (7.8-10.44); Carbon Dioxide 23 mmol/L (23-31); Chloride 97 mmol/L (98-107); Estimated GFR-MDRD 79; Glucose 217 mg/dL (83-110); Magnesium 1.4 mg/dL (1.6-2.6); Phosphorus 2.7 mg/dL (2.3-4.7); Potassium 4.3 mmol/L (3.5-5.1); Sodium 129 mmol/L (136-145)
[2019-05-15] MEDS ORDERED: PHOS-NAK 1 PKT PACK PO SCH (20:45)
[2019-05-15] MEDS ORDERED: Tamsulosin HCl 0.4 MG CAP PO SCH ×2 (21:00→23:15)
[2019-05-15] MEDS: Magnesium 2 GM/50 ML 2 GM in Premix Bag 1 BAG IVPB SCH ×2 (21:31→23:04)
[2019-05-15] MEDS: Senokot S 8.6-50 MG TAB PO SCH (21:37)
[2019-05-15] MEDS ORDERED: traMADol HCl 50 MG TAB PO PRN (22:28)
[2019-05-15 22:57] VITALS: BMI 23.6
[2019-05-15] MEDS ORDERED: Terazosin HCl 1 MG CAP PO SCH (23:00)
[2019-05-15] MEDS: Acetaminophen 500 MG TAB PO SCH (23:13)
[2019-05-15] MEDS ORDERED: Ibuprofen 200 MG TAB PO SCH (23:15)
[2019-05-15] MEDS: Melatonin 3 MG TAB PO PRN (23:30)
--- NOTE | 2019-05-15 23:44 | HP ---
TRAUMA SURGEON: Ashley Lock MD. CONSULTING PHYSICIAN: Georges Lynch MD. HISTORY OF PRESENT ILLNESS: The patient is an 83-year-old male who presents to the emergency department via EMS after a mechanical fall from standing, on Coumadin. The patient reported trying to get his keys out of his pocket and having a difficult time, subsequently falling backwards onto his buttocks and catching himself with his bilateral elbows. He did not hit his head or lose consciousness. His mentation is normal and at baseline. He denies any chest pain, shortness of breath. REVIEW OF SYSTEMS: All additional 10-point review of systems negative except as indicated above. PAST MEDICAL HISTORY: Pacemaker, diabetes, hypertension, AFib, BPH, sick sinus syndrome, right-sided pelvic fracture in January of this year, nonoperative management by the trauma team with Orthopedic Surgery as well. PAST SURGICAL HISTORY: Right elbow surgery, right hip replacement, and a pacemaker placement. SOCIAL HISTORY: The patient lives at home with his and uses a cane to ambulate. He denies drug, alcohol, and tobacco use. MEDICATIONS: The patient is not a good historian, he is unsure of his medications, but he does take; 1. Coumadin. 2. Metformin. 3. Laxative daily. ALLERGIES: PENICILLIN. PHYSICAL EXAMINATION: VITAL SIGNS: Temperature 98.6, pulse 68, respirations 18, oxygen saturation 96% on room air, blood pressure 167/72. PRIMARY SURVEY: Airway intact. Adequate breath sounds bilaterally. 2+ pulses in the bilateral radials, femorals, and DPs. GCS is 15. Gross motor and sensation are intact. No lacerations or bruising noted. Abrasions to bilateral elbows with bleeding controlled. SECONDARY SURVEY: HEAD: Normocephalic, atraumatic with no gross palpable skull deformities or tenderness. EYES: Pupils 3-2, equal, round, reactive to light bilaterally. ENT: No hemotympanum, no epistaxis, no septal hematoma. Midface stable to manipulation. No blood in the oropharynx. Dentition is intact. No anterior neck injury/crepitus/tenderness. C-spine nontender. No deformity. A C-collar is not in place. CHEST: Nontender. No crepitus. No abrasions or ecchymosis. Equal chest movement. ABDOMEN: Soft, nontender, nondistended. PELVIS: Stable to palpation, nontender, no abrasions or ecchymosis. RECTAL: Deferred. GENITOURINARY: Deferred. EXTREMITIES: No gross deformities. No abrasions or ecchymosis. 2+ pulses in the bilateral radials, femorals, and DPs. 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 BACK/SPINE: No step-offs or deformities or tenderness to palpation of the thoracic or lumbar spine. No abrasions or ecchymosis noted. NEUROLOGIC: 5/5 strength in bilateral operator engineer, plantar flexion, and dorsiflexion. Gross normal sensation x4 extremities. LABORATORY FINDINGS: White count 13.2, hemoglobin 12.0, hematocrit 36.2, platelets 196. INR 2.6. Sodium 129, potassium 4.3, chloride 95, carbon dioxide 25, BUN 13, creatinine 0.91, glucose 217, phosphorus 2.7, magnesium 1.4. DIAGNOSTIC FINDINGS: X-ray of the left hip demonstrates limited evaluation, definite fracture cannot be excluded. CT is recommended. Pelvic x-ray demonstrates stable AP pelvic radiograph. Additional imaging if the patient is unable to bear weight. CT of the pelvis demonstrates acute comminuted fracture of the left acetabulum with fractures of the root of the left superior ischial ramus and fractures of the lower left iliac wing, acute fracture involving the roof of the acetabulum of the right over the acetabulum component of the right hip prosthesis. ASSESSMENT: 1. Status post mechanical fall from standing. 2. Bilateral acetabular fractures. 3. Left superior ischial ramus fracture. 4. Left lower iliac wing fracture. 5. Chronic hyponatremia. 6. Acute hypomagnesemia. PLAN: The patient will be admitted to the Trauma Service. Dr. Lynch, Orthopedic Surgery has been consulted and plans to discuss options with the patient in the morning, although likely nonoperative management will be recommended. The patient reports at this time he is not interested in operative intervention, but agrees to be n.p.o. after midnight in order to discuss the possibilities with the Orthopedic Surgery Team. His home medications were restarted as clinically indicated. We will not reverse his Coumadin at this time; however, we will hold the medication and check an INR in the morning. If the patient does not go to the OR, he will begin working with Physical and Occupational Therapy tomorrow. He will likely need placement in acute rehab when he is ready for discharge. Job ID: [id number]
[2019-05-16] MEDS: traMADol HCl 50 MG TAB PO PRN (00:51)
[2019-05-16 05:07] LABS: INR-International Normal Ratio 3.3; Prothrombin Time 32.9 SEC (12.0-14.7)
[2019-05-16 05:15] LABS: #Basophils 0.1 thou/uL (0.0-0.2); #Eosinphils 0.5 thou/uL (0.0-0.7); #Lymphocytes 1.5 thou/uL (1.20-3.40); #Monocytes 1.1 thou/uL (0.11-0.59); #Neutrophils 6.1 thou/uL (1.40-6.50); %Basophils 0.6 % (0.0-1.0); %Eosinophils 5.1 % (0.0-10.0); %Lymphocytes 16.5 % (21.0-51.0); %Monocytes 11.7 % (0.0-10.0); Hemoglobin 10.8 g/dL (14.0-18.0); Mean Corpuscular Hemoglobin 31.9 pg (27.0-31.0); Mean Corpuscular Volume 93.8 fL (78.0-98.0); Mean Platelet Volume 7.5 fL (7.4-10.4); Platelet Count 160 thou/uL (130-400); RBC Distribution Width 12.4 % (11.5-14.5); Red Blood Cell (RBC) Count 3.38 mill/uL (4.70-6.10); White Blood Cell (WBC) Count 9.2 thou/uL (4.8-10.8)
[2019-05-16 05:27] LABS: Anion Gap 10 mmol/L (10-20); BUN (Urea Nitrogen) 12 mg/dL (8.4-25.7); Calc. Creatinine Clearance 67 mL/min (70-130); Calcium 8.6 mg/dL (7.8-10.44); Carbon Dioxide 26 mmol/L (23-31); Chloride 98 mmol/L (98-107); Estimated GFR-MDRD Greater than 90; Glucose 173 mg/dL (83-110); Phosphorus 3.2 mg/dL (2.3-4.7); Potassium 3.9 mmol/L (3.5-5.1); Sodium 130 mmol/L (136-145)
[2019-05-16] MEDS: Ibuprofen 200 MG TAB PO SCH ×3 (05:27→20:52)
[2019-05-16] MEDS: Acetaminophen 500 MG TAB PO SCH ×4 (05:27→23:39)
--- NOTE | 2019-05-16 08:13 | CON ---
DATE OF CONSULTATION: 05/16/2019 CHIEF COMPLAINT: Left hip pain. HISTORY OF PRESENT ILLNESS: Mr. Lynch is an 83-year-old male, who presents to the emergency department after falling on his front porch. The patient was trying to get his keys from his pocket when he lost his balance and fell backwards. He was using a cane at that time. He just got out of rehab for previous pelvic fracture. He reports he was doing better until his recent fall. He is on Coumadin. He was admitted to the hospital for his fracture after CT scan demonstrated an acetabulum fracture on the left side. REVIEW OF SYSTEMS: Positive for left hip pain. Otherwise, 10-point review of systems is negative. PAST SURGICAL HISTORY: Right distal humerus ORIF, right hip hemiarthroplasty, and previous pacemaker placement. PAST MEDICAL HISTORY: Diabetes, hypertension, atrial fibrillation with pacemaker, benign prostatic hypertrophy, sick sinus syndrome, and osteoporosis with multiple previous fractures. SOCIAL HISTORY: The patient just got back home from rehab. He lives with his . Denies tobacco, alcohol, or drug use. MEDICATIONS: Coumadin, metformin, and a laxative. ALLERGIES: TO PENICILLIN. PHYSICAL EXAMINATION: VITAL SIGNS: Temperature is 97.6, pulse is 60, respiratory rate is 18, and blood pressure is 117/65. GENERAL: He is alert and oriented, in no apparent distress. LUNGS: Breathing comfortably. ABDOMEN: Soft, nontender, and nondistended. EXTREMITIES: Pulses are regular and palpable peripherally. MUSCULOSKELETAL: The patient's left lower extremity has pain with motion. He keeps his leg in a stiff position. His right hip and knee move well. No significant ecchymosis or swelling. No skin tears. NEUROVASCULAR: Intact distally. IMAGING DATA: Pelvic x-ray as well as pelvic CT scan demonstrate a left comminuted acetabular fracture with extension into the iliac wing as well as superior pubic ramus. The patient has deformity of the right pubic ramus, which appears to be a healing fracture. IMPRESSION: Left acetabulum fracture in an elderly male with osteoporosis. PLAN: At this point, the patient can mobilize with physical therapy, although he does need to be nonweightbearing on the left leg. He can weight bear as tolerated on the right leg. We will continue to observe him today in the hospital given that he is on Coumadin and he has a significant pelvic fracture. So far, his hemoglobin has been stable. We can begin the process of placing him to rehab. [facility]. He will need significant assistance for mobilization. He will be nonweightbearing on the left leg for 6 weeks. I would like to see him back in the clinic in approximately 1 month for x-rays to evaluate position of his fracture. He can eat and drink today. Job ID: [id number]
[2019-05-16] MEDS: Famotidine 20 MG TAB PO SCH ×2 (08:58→20:51)
[2019-05-16] MEDS: Polyethylene Glycol 3350 17 GM Packet PO SCH (09:05)
[2019-05-16] MEDS: Carvedilol 6.25 MG TAB PO SCH ×2 (09:05→17:30)
[2019-05-16] MEDS: Senokot S 8.6-50 MG TAB PO SCH ×2 (09:05→14:24)
--- NOTE | 2019-05-16 13:26 | PDOC.EVN ---
Event Note - Event Note Event Note: Mr. Lynch's PCP was contacted at approximately 1300 in order to discuss the need for his continued use of Warfarin in order to control his A-Fib. Based on the patient's advanced age and multiple recent falls, he is at high risk for additional falls and subsequent trauma with bleeding complications secondary to his Warfarin use. It was recommended that the patient discontinue his current Warfarin regimen in favor of a NOAC, to which the patient's PCP agreed. However , the patient's PCP articulated that he had been trying to encourage the patient to switch his anticoagulation regimen for years without success due to the patient's insistence on using Warfarin based on its low cost. He was aware of the ongoing risk and stated that he would continue to try to counseling specialist him appropriately.
--- NOTE | 2019-05-16 14:37 | PRG ---
DATE OF SERVICE: 05/16/2019 SUBJECTIVE: The patient remains on the surgical floor. He is status post ground level fall, which he sustained left acetabular fracture. The patient was evaluated by Orthopedics and recommended that he be managed nonoperatively. The patient had a recent right acetabular fracture that is appeared to be healing on his CT scan. Overnight, the patient had no issues. He was tolerating a diet this morning and his pain was somewhat controlled and he has not worked with therapy yet. OBJECTIVE: VITAL SIGNS: Temperature is 97.9, heart rate 63, blood pressure 117/55, respirations 16, oxygen saturation 97% on room air. GENERAL: The patient is resting comfortably in bed. He is awake, alert, conversant. Seth Coma Scale is 15. HEENT: Unremarkable. LUNGS: Clear to auscultation with good inspiratory and expiratory effort. HEART: Regular rate and rhythm. ABDOMEN: Soft, flat, nontender with active bowel sounds. EXTREMITIES: Neurovascularly intact x4. LABORATORY FINDINGS: White blood cell count 9.2, hemoglobin 10.8, hematocrit 31.7, platelets 160. Sodium 130, potassium 3.9, chloride 98, CO2 of 26, BUN 12, creatinine 0.81, glucose 173, magnesium 2.0, phosphorus 3.2. There are no radiographs reviewed this morning. ASSESSMENT AND PLAN: 1. Status post mechanical fall from standing. 2. Bilateral acetabular fracture. 3. Left superior ischial ramus fracture. 4. Left lower iliac wing fracture. 5. Chronic hyponatremia. 6. Acute hypomagnesemia, resolved. Plan will be to continue supportive care, physical and occupational therapy. Discuss placement with the patient and family. Pain management, pulmonary toilet, gastritis, mechanical VTE prophylaxis. We will start chemical prophylaxis today. The patient was evaluated this morning during rounds with Dr. Mcclure. Job ID: [id number]
[2019-05-16] MEDS ORDERED: Gabapentin 100 MG CAP PO SCH (16:30)
[2019-05-16 17:41] LABS: Bacteria/HPF 1+ HPF (None Seen); Bilirubin Negative (Negative); Blood, Urine Trace (Negative); Clarity Clear (Clear); Glucose, Urine (Dipstick) 50 mg/dL (Negative); Leukocyte Negative Leu/uL (Negative); Nitrite Negative (Negative); Protein, Urine (Dipstick) Negative (Neg-Trace); Squamous Epithelial 0-3 HPF (0-3); Urobilinogen Normal mg/dL (Less than 2); WBC/HPF 0-3 HPF (0-3)
[2019-05-16 17:42] LABS: Urine Culture Reflex No No
[2019-05-16] MEDS: Tamsulosin HCl 0.4 MG CAP PO SCH (20:51)
[2019-05-16] MEDS: Terazosin HCl 1 MG CAP PO SCH (20:51)
[2019-05-16] MEDS: Gabapentin 100 MG CAP PO SCH (20:51)
[2019-05-16] MEDS: Melatonin 3 MG TAB PO PRN (23:39)
--- NOTE | 2019-05-17 01:57 | PRG ---
DATE OF SERVICE: 05/16/2019 SUBJECTIVE: The patient was seen this evening, lying in bed, asleep with no signs of acute distress. Nursing reported no acute events. OBJECTIVE: VITAL SIGNS: Temperature 98, pulse 62, respirations 16, oxygen saturation 98% on room air, blood pressure 151/72. GENERAL: Well-appearing elderly male, lying in bed with no signs of acute distress. PULMONARY: Equal chest rise and fall. No signs of acute respiratory distress. ASSESSMENT: 1. Status post mechanical fall from standing, on Coumadin. 2. Bilateral acetabular fractures. 3. Left superior ischial ramus fracture. 4. Left lower iliac wing fracture. 5. Chronic hyponatremia. PLAN: Continue current pain medicine and diet. Continue physical and occupational therapy. The patient will likely be discharged to rehab tomorrow. Job ID: [id number]
[2019-05-17] MEDS: Acetaminophen 500 MG TAB PO SCH ×4 (06:06→23:39)
[2019-05-17] MEDS: Ibuprofen 200 MG TAB PO SCH ×3 (06:06→21:02)
[2019-05-17] MEDS: Insulin Regular 300 UNITS/3 ML VIAL SC PRN ×3 (06:07→17:49)
[2019-05-17] MEDS: Carvedilol 6.25 MG TAB PO SCH ×2 (08:34→17:49)
[2019-05-17] MEDS: Polyethylene Glycol 3350 17 GM Packet PO SCH (08:36)
[2019-05-17] MEDS: Gabapentin 100 MG CAP PO SCH ×2 (08:36→21:01)
[2019-05-17] MEDS: metFORMIN 500 MG TAB PO SCH ×2 (08:36→17:48)
[2019-05-17] MEDS: Famotidine 20 MG TAB PO SCH ×2 (08:36→21:01)
[2019-05-17] MEDS: Senokot S 8.6-50 MG TAB PO SCH ×2 (08:36→14:08)
[2019-05-17] MEDS: Aspirin 81 mg Enteric Coated Tablet PO SCH ×2 (10:12→21:01)
--- NOTE | 2019-05-17 19:02 | PRG ---
DATE OF SERVICE: 05/17/2019 SUBJECTIVE: The patient is currently on the surgical floor, status post ground level fall when he sustained a left acetabular fracture. The patient is being treated nonoperatively and he is currently awaiting approval for rehab. Reportedly due to the patient's Medicare plan, he is primarily only authorized for rehab, so we will be working on this and hopes of getting him transferred soon. Otherwise, he is doing well. He is tolerating a diet. His pain is controlled. The patient did have adjustments made to his medications yesterday and early this morning. OBJECTIVE: VITAL SIGNS: Temperature 97.6, heart rate 65, blood pressure 121/66, respirations 14, oxygen saturation 97% on room air. GENERAL: The patient is resting comfortably in bed. He was asleep upon entering the room, but easily awaken to verbal stimuli. HEENT: Unremarkable. LUNGS: Clear to auscultation with good inspiratory and expiratory effort. HEART: Regular rate and rhythm. ABDOMEN: Soft, flat, nontender with active bowel sounds. EXTREMITIES: Neurovascularly intact x4. DIAGNOSTIC DATA: There are no labs or radiographs reviewed this morning. ASSESSMENT AND PLAN: 1. Status post ground level fall. 2. Bilateral acetabular fracture, left acute, right subacute. 3. Left superior ischial ramus fracture. 4. Left iliac wing fracture. 5. Chronic hyponatremia. PLAN: Plan will be to continue supportive care, physical and occupational therapy. Adjust his pain medicines as needed. He is started on chemical VTE prophylaxis and we will await final placement decision. Job ID: [id number]
[2019-05-17] MEDS: Tamsulosin HCl 0.4 MG CAP PO SCH (21:01)
[2019-05-17] MEDS: Terazosin HCl 1 MG CAP PO SCH (21:01)
--- NOTE | 2019-05-18 00:18 | PRG ---
DATE OF SERVICE: 05/17/2019 SUBJECTIVE: The patient was seen this evening, lying in bed with no signs of acute distress. He reported pain was well controlled and he had no concerns at the time of my evaluation. OBJECTIVE: VITAL SIGNS: Temperature 97.9, pulse 60, respirations 16, oxygen saturation 99% on room air, blood pressure 111/59. GENERAL: Well-appearing elderly male, lying in bed with no signs of acute distress. PULMONARY: Equal chest rise and fall. Clear breath sounds bilaterally. No signs of acute respiratory distress. EXTREMITIES: 2+ pulses in all extremities. Gross motor and sensation are intact. NEUROLOGIC: GCS is 15. ASSESSMENT: 1. Status post mechanical fall, on Coumadin. 2. Bilateral pelvic fractures, nonoperative. 3. History of pacemaker, diabetes, hypertension, atrial fibrillation, benign prostatic hyperplasia, sick sinus syndrome. 4. Left superior ischial ramus fracture. 5. Bilateral acetabular fracture, nonoperative. 6. Left iliac wing fracture. 7. Chronic hyponatremia. PLAN: The patient is ready for discharge at this time. He will be restarted on his home dose of Coumadin tomorrow and will be discharged to a facility once approved. Job ID: [id number]
[2019-05-18] MEDS ORDERED: Ibuprofen 200 MG TAB PO SCH (06:00)
[2019-05-18] MEDS: Acetaminophen 500 MG TAB PO SCH ×4 (06:54→17:48)
[2019-05-18] MEDS: Ibuprofen 800 MG TAB PO SCH ×3 (06:54→21:12)
[2019-05-18] MEDS: Ibuprofen 200 MG TAB PO SCH (07:00)
[2019-05-18] MEDS: Carvedilol 6.25 MG TAB PO SCH ×2 (08:18→17:48)
[2019-05-18] MEDS: Gabapentin 100 MG CAP PO SCH ×2 (08:18→19:57)
[2019-05-18] MEDS: Polyethylene Glycol 3350 17 GM Packet PO SCH (08:18)
[2019-05-18] MEDS: Senokot S 8.6-50 MG TAB PO SCH ×2 (08:18→13:18)
[2019-05-18] MEDS: metFORMIN 500 MG TAB PO SCH ×2 (08:18→17:47)
[2019-05-18] MEDS: Famotidine 20 MG TAB PO SCH ×2 (08:19→19:56)
[2019-05-18] MEDS: Aspirin 81 mg Enteric Coated Tablet PO SCH ×2 (08:19→19:57)
[2019-05-18] MEDS ORDERED: Bisacodyl 10 MG SUPP PR PRN (08:36)
--- NOTE | 2019-05-18 15:51 | PRG ---
DATE OF SERVICE: 05/18/2019 SUBJECTIVE: The patient remains on the surgical floor. He is status post ground level fall which sustained a left acetabular fracture. The patient also recently had a right acetabular fracture. The patient is being treated nonoperatively for these fractures, and is currently awaiting placement decision. As of yesterday, he was declined for rehab placement with a [place] [facility] facility recommendation. Unfortunately, if the patient's Medicare plan does not cover a skilled facility, so we will attempt to get him placed in rehab if not we will discuss custodial placement. Overnight, the patient had no issues. He is tolerating a diet. His pain is controlled. OBJECTIVE: VITAL SIGNS: Temperature 97.9, heart rate 69, blood pressure 137/69, respirations 12, oxygen saturation 97% on room air. GENERAL: The patient is resting comfortably in bed. He is awake, alert, and oriented x3. Seth Coma Scale is 15. HEENT: Unremarkable. LUNGS: Clear to auscultation with good inspiratory and expiratory effort. HEART: Regular rate and rhythm. ABDOMEN: Soft, flat, nontender with active bowel sounds. EXTREMITIES: Neurovascularly intact x4. There are no labs or radiographs to review this morning. ASSESSMENT/PLAN: 1. Status post ground level fall. 2. Bilateral acetabular fractures, left acute, right subacute. 3. Left superior ischial ramus fracture. 4. Left iliac wing fracture. PLAN: Plan will be to continue supportive care, physical, occupational therapy and await final placement determination. Job ID: [id number]
[2019-05-18] MEDS: Insulin Regular 300 UNITS/3 ML VIAL SC PRN ×2 (17:48→19:56)
[2019-05-18] MEDS: Terazosin HCl 1 MG CAP PO SCH (19:57)
[2019-05-18] MEDS: Tamsulosin HCl 0.4 MG CAP PO SCH (19:57)
[2019-05-19] MEDS: Acetaminophen 500 MG TAB PO SCH ×4 (00:59→18:21)
--- NOTE | 2019-05-19 02:00 | PRG ---
DATE OF SERVICE: 05/19/2019 SUBJECTIVE: Patient was seen this evening during rounds, lying in bed comfortably, and asleep with no signs of acute distress. Nursing reported no acute events. OBJECTIVE: VITAL SIGNS: Temperature 98, pulse 61, respirations 16, oxygen saturation 96% on room air, blood pressure 106/61. GENERAL: Well-appearing elderly male, lying in bed with no signs of acute distress. PULMONARY: Equal chest rise and fall. No signs of acute respiratory distress. ASSESSMENT: 1. Status post mechanical fall from standing. 2. Bilateral acetabular fracture, nonoperative. 3. Left superior ischial ramus fracture, nonoperative. 4. Left iliac wing fracture, nonoperative. 5. History of pacemaker, diabetes, hypertension, atrial fibrillation, benign prostatic hyperplasia, and sick sinus syndrome. PLAN: Continue current diet and pain regimen. He is pending placement at this time. He is ready for discharge. Job ID: [id number]
[2019-05-19] MEDS: Ibuprofen 800 MG TAB PO SCH ×3 (05:42→23:13)
[2019-05-19] MEDS: metFORMIN 500 MG TAB PO SCH ×2 (08:42→18:20)
[2019-05-19] MEDS: Aspirin 81 mg Enteric Coated Tablet PO SCH ×2 (08:42→19:50)
[2019-05-19] MEDS: Famotidine 20 MG TAB PO SCH ×2 (08:43→19:50)
[2019-05-19] MEDS: Carvedilol 6.25 MG TAB PO SCH ×2 (08:43→18:20)
[2019-05-19] MEDS: Gabapentin 100 MG CAP PO SCH ×2 (08:43→19:50)
[2019-05-19] MEDS: Senokot S 8.6-50 MG TAB PO SCH ×2 (08:44→14:24)
[2019-05-19] MEDS: Polyethylene Glycol 3350 17 GM Packet PO SCH (08:44)
[2019-05-19] MEDS: Insulin Regular 300 UNITS/3 ML VIAL SC PRN (11:37)
[2019-05-19] MEDS: Tamsulosin HCl 0.4 MG CAP PO SCH (19:50)
[2019-05-19] MEDS: traMADol HCl 50 MG TAB PO PRN (19:51)
[2019-05-19] MEDS: Terazosin HCl 1 MG CAP PO SCH (19:51)
[2019-05-20] MEDS: Acetaminophen 500 MG TAB PO SCH ×3 (02:25→13:41)
--- NOTE | 2019-05-20 02:29 | PRG ---
DATE OF SERVICE: 05/20/2019 SUBJECTIVE: The patient was seen this evening during rounds. He was lying in bed, asleep, with no signs of acute distress. Nursing reported no acute events. OBJECTIVE: VITAL SIGNS: Temperature 97.7, pulse 60, respirations 16, oxygen saturation 98% on room air, blood pressure 148/65. GENERAL: Well-appearing elderly male, lying in bed with no signs of acute distress. PULMONARY: Equal chest rise and fall. No signs of acute respiratory distress. ASSESSMENT: 1. Status post mechanical fall from standing. 2. Bilateral acetabular fracture, nonoperative. 3. Left superior ischial ramus fracture, nonoperative. 4. Left iliac wing fracture, nonoperative. 5. History of pacemaker, diabetes, hypertension, atrial fibrillation, BPH, and sick sinus syndrome. PLAN: Continue current diet and pain regimen. We are pending placement at this time. He is ready for discharge. Job ID: [id number]
--- NOTE | 2019-05-20 06:00 | PRG ---
DATE OF SERVICE: 05/19/2019 SUBJECTIVE: The patient is currently on the surgical floor. He is status post a ground level fall, in which he sustained a left acetabular fracture. The patient also had a subacute right acetabular fracture. The patient has been waiting for placement to rehab. Unfortunately, there were questions about his insurance and his weightbearing status. We were able to clarify his weightbearing status with the rehab rep this morning and we are hoping that we will be able to get him to rehab. Otherwise, it appears that his only placement option will be a retirement. Otherwise, the patient is doing well. He is tolerating a diet. His pain is controlled. He continues to work with Physical and Occupational Therapy. The patient's bowel function has returned. PHYSICAL EXAMINATION: VITAL SIGNS: Temperature is 97.9, heart rate 63, blood pressure 137/66, respirations 16, oxygen saturation 95% on room air. GENERAL: The patient is resting comfortably in bed. He is awake, alert, oriented, and conversant. HEENT: Unremarkable. LUNGS: Clear to auscultation bilaterally. HEART: Regular rate and rhythm. ABDOMEN: Soft with active bowel sounds. EXTREMITIES: Neurovascularly intact x4. There are no labs or radiographs reviewed this morning. ASSESSMENT AND PLAN: 1. Status post ground level fall. 2. Acute left acetabular fracture. 3. Subacute right acetabular fracture. 4. Left superior ischial ramus fracture. 5. Acute left iliac wing fracture. PLAN: Plan will be to continue supportive care. Await placement decision tomorrow. The patient is ready for his continuation of care either at a nursing facility or rehab. Job ID: [id number]
[2019-05-20] MEDS: Ibuprofen 800 MG TAB PO SCH ×2 (06:50→13:41)
[2019-05-20] MEDS: Gabapentin 100 MG CAP PO SCH (07:53)
[2019-05-20] MEDS: metFORMIN 500 MG TAB PO SCH (07:53)
[2019-05-20] MEDS: Senokot S 8.6-50 MG TAB PO SCH (07:54)
[2019-05-20] MEDS: Carvedilol 6.25 MG TAB PO SCH (07:54)
[2019-05-20] MEDS: traMADol HCl 50 MG TAB PO PRN (07:56)
[2019-05-20] MEDS: Polyethylene Glycol 3350 17 GM Packet PO SCH (08:01)
[2019-05-20] MEDS: Famotidine 20 MG TAB PO SCH (08:01)
[2019-05-20] MEDS: Aspirin 81 mg Enteric Coated Tablet PO SCH (08:01)
[2019-05-20] MEDS: Insulin Regular 300 UNITS/3 ML VIAL SC PRN (13:31)
[2019-05-20 13:58] VITALS: BP 115/61; TEMP 98.2
--- NOTE | 2019-05-21 02:27 | DIS ---
DATE OF ADMISSION: 05/15/2019 DATE OF DISCHARGE: 05/20/2019 This is Marcela Chacon NP dictating a report for Dr. Mcclure. ADMITTING ATTENDING: Ashley Lock MD DISCHARGE ATTENDING: Dr. Mcclure. CONSULTS: Orthopedic Surgery, Dr. Lynch. PROCEDURES PERFORMED: On 05/15/2019, x-ray of left hip demonstrates limited evaluation, definite fracture cannot be excluded. CT recommended. Pelvic x-ray demonstrates stable AP pelvic radiograph. CT of pelvis demonstrates acute comminuted fracture of the left acetabulum with fracture of the root of the left superior ischial ramus and fractures of the lower left iliac wing, acute fracture involving the roof of the right over the acetabulum component of the right hip prosthesis. PRIMARY DIAGNOSES: Status post mechanical fall from standing, bilateral acetabular fractures, left superior ischial ramus fracture, left lower iliac wing fracture, acute hypomagnesemia. SECONDARY DIAGNOSIS: Chronic hyponatremia. DISCHARGE MEDICATIONS: 1. Acetaminophen 650 mg p.o. q.6 hours. 2. Aspirin 81 mg p.o. b.i.d. for 30 days. 3. Dulcolax as needed. 4. Carvedilol 6.25 mg p.o. b.i.d. 5. Gabapentin 100 mg p.o. b.i.d. 6. Ibuprofen 400 mg p.o. q.8 hours. 7. Melatonin 3 mg p.o. at bedtime. 8. Metformin 1000 mg p.o. b.i.d. 9. MiraLAX as needed. 10. Senokot as needed. 11. Flomax 0.4 mg p.o. at bedtime. 12. Hytrin 1 mg p.o. nightly. DISCONTINUED MEDICATIONS: None. HISTORY OF PRESENT ILLNESS AND HOSPITAL COURSE: This is an 83-year-old male, who presented to the emergency room via EMS after a mechanical fall from standing, on Coumadin. The patient reported he was trying to get his keys out of his pocket and he was having difficulty causing him to fall backwards onto his buttocks, and he was able to catch himself on both elbows. The patient denies hitting his head or losing consciousness. The patient was alert and oriented at baseline. The patient denies any chest pain or shortness of breath or dizziness prior to falling. The patient was evaluated by Orthopedic Surgery and patient's injuries were nonoperative. The patient's pain was well controlled during his hospital stay. The patient was able to work with Physical Therapy. The patient tolerated a diabetic diet. On the day of discharge, the patient was examined by Dr. Mcclure. The patient's vital signs were stable and his exam was unremarkable including cardiopulmonary and GI exam. The patient was deemed stable for discharge to inpatient rehab for continued physical and occupational therapy. DISPOSITION: Stable. DISCHARGE INSTRUCTIONS: 1. Location: Inpatient rehab. 2. Diet: Diabetic diet. 3. Activity: Orthopedic limitations, nonweightbearing in left lower extremity. 4. Followup: Follow up with Dr. Lynch as directed. No need to follow up with Trauma Services, Dr. Mcclure. Call for any questions. Job ID: [id number] [facility]
== END 2019-05-20 14:16 | DRG 535 ==
LOC: ERS 14:58 → SJJU 19:21 → OBSVTOIN 20:32 → SJJU 05-16 10:13
PROVIDERS: ADMIT Surgery; ATTEND Surgery
DX: S32.592A Other specified fracture of left pubis, initial encounter for closed fracture (principal); S32.402A Unspecified fracture of left acetabulum, initial encounter for closed fracture; S32.401A Unspecified fracture of right acetabulum, initial encounter for closed fracture; E87.1 Hypo-osmolality and hyponatremia; I48.91 Unspecified atrial fibrillation; N40.0 Benign prostatic hyperplasia without lower urinary tract symptoms; E83.42 Hypomagnesemia; I49.5 Sick sinus syndrome; S32.302A Unspecified fracture of left ilium, initial encounter for closed fracture; M81.0 Age-related osteoporosis without current pathological fracture; W18.39XA Other fall on same level, initial encounter; Z79.01 Long term (current) use of anticoagulants; Z79.84 Long term (current) use of oral hypoglycemic drugs; Z79.899 Other long term (current) drug therapy; Z88.0 Allergy status to penicillin; Z95.0 Presence of cardiac pacemaker
CPT/HCPCS: 36415; 36416; 72170; 72192; 80048; 81001; 83735; 84100; 85025; 85610; 93005; J1815; J3475

== ENCOUNTER 2019-07-05 17:45 | Inpatient (IN) | payer MEDICARE ==
[2019-07-05 18:13] LABS: #Basophils 0.1 thou/uL (0.0-0.2); #Eosinphils 4.1 thou/uL (0.0-0.7); #Lymphocytes 1.3 thou/uL (1.20-3.40); #Monocytes 0.8 thou/uL (0.11-0.59); #Neutrophils 12.1 thou/uL (1.40-6.50); %Basophils 0.3 % (0.0-1.0); %Eosinophils 22.3 % (0.0-10.0); %Lymphocytes 7.1 % (21.0-51.0); %Monocytes 4.4 % (0.0-10.0); %Neutrophils 65.9 % (42.0-75.0); Hemoglobin 10.8 g/dL (14.0-18.0); Mean Corpuscular HGB CONC 34.7 g/dL (32.0-36.0); Mean Corpuscular Hemoglobin 32.8 pg (27.0-31.0); Mean Corpuscular Volume 94.6 fL (78.0-98.0); Mean Platelet Volume 6.5 fL (7.4-10.4); Platelet Count 306 thou/uL (130-400); RBC Distribution Width 12.8 % (11.5-14.5); Red Blood Cell (RBC) Count 3.28 mill/uL (4.70-6.10); White Blood Cell (WBC) Count 18.4 thou/uL (4.8-10.8)
[2019-07-05 18:18] LABS: PTT 58.8 SEC (22.9-36.1); Prothrombin Time 42.5 SEC (12.0-14.7)
[2019-07-05 18:21] LABS: INR-International Normal Ratio 4.5
--- NOTE | 2019-07-05 18:31 | RAD ---
Chest AP view INDICATION: Weakness COMPARISON: February 06, 2019 FINDINGS: Lungs:Stable emphysema Cardiac silhouette:Stable mild cardiomegaly Pulmonary vasculature:Normal Pleural spaces:No pleural effusion or pneumothorax is demonstrated. Upper abdomen:No abnormality seen. Osseous structures: There is scattered degenerative and osteoarthritic change present. Additional findings:Stable dual-lead pacemaker IMPRESSION: No acute cardiopulmonary abnormality.
[2019-07-05 18:33] LABS: ALT (SGPT) 17 U/L (8-55); AST (SGOT) 28 U/L (5-34); Albumin 3.4 g/dL (3.4-4.8); Alkaline Phosphatase 132 U/L (40-110); Anion Gap 13 mmol/L (10-20); BUN (Urea Nitrogen) 23 mg/dL (8.4-25.7); Bilirubin, Total 0.5 mg/dL (0.2-1.2); Calc. Creatinine Clearance 0 mL/min (70-130); Calcium 8.5 mg/dL (7.8-10.44); Carbon Dioxide 22 mmol/L (23-31); Chloride 91 mmol/L (98-107); Estimated GFR-MDRD Greater than 90; Globulin 2.2 g/dL (2.4-3.5); Glucose 181 mg/dL (83-110); Protein, Total 5.6 g/dL (5.8-8.1); Sodium 121 mmol/L (136-145)
[2019-07-05 20:22] LABS: Bacteria/HPF 4+ HPF (None Seen); Bilirubin Negative (Negative); Blood, Urine 2+ (Negative); Clarity Extra Turbid (Clear); Glucose, Urine (Dipstick) Normal (Negative); Leukocyte 500 Leu/uL (Negative); Nitrite Negative (Negative); Protein, Urine (Dipstick) 30 mg/dL (Neg-Trace); Squamous Epithelial 0-3 HPF (0-3); Urobilinogen Normal mg/dL (Less than 2); WBC/HPF Greater than 50 HPF (0-3)
[2019-07-05] MEDS ORDERED: cefTRIAXone\\ROCEPHIN 1 GM VIAL ONE (20:45)
[2019-07-05 21:10] LABS: Lactic Acid 1.4 mmol/L (0.5-2.2)
[2019-07-05] MEDS ORDERED: Acetaminophen 325 MG TAB PO PRN (22:15)
[2019-07-05] MEDS ORDERED: Ondansetron ODT 4 MG TAB SL PRN (22:15)
[2019-07-05] MEDS ORDERED: Ondansetron PF 4 MG/2 ML Vial IVP PRN (22:15)
[2019-07-05] MEDS: Sodium Chloride 0.9% 1,000 ML IV SCH (23:00)
[2019-07-05 23:25] VITALS: BMI 22.8
[2019-07-06] MEDS ORDERED: Acetaminophen 325 MG TAB PO PRN (08:20)
[2019-07-06] MEDS ORDERED: Melatonin 3 MG TAB PO PRN (08:22)
[2019-07-06] MEDS ORDERED: Ondansetron ODT 4 MG TAB PO PRN (08:22)
[2019-07-06] MEDS ORDERED: Tamsulosin HCl 0.4 MG CAP PO SCH (09:00)
[2019-07-06] MEDS: Sodium Chloride 0.9% 1,000 ML IV SCH ×3 (09:33→17:43)
[2019-07-06] MEDS: Famotidine 20 MG TAB PO SCH ×2 (09:34→20:56)
[2019-07-06] MEDS: metFORMIN 500 MG TAB PO SCH ×2 (09:34→20:56)
[2019-07-06] MEDS: Carvedilol 6.25 MG TAB PO SCH ×2 (09:34→20:56)
[2019-07-06] MEDS: Docusate Calcium (SURFAK) 240 MG CAP PO SCH ×2 (09:38→20:57)
--- NOTE | 2019-07-06 13:34 | HP ---
CHIEF COMPLAINT: On admission is hyponatremia, recent pelvic fractures, deconditioning, and urinary tract infection. HISTORY OF PRESENT ILLNESS: The patient is an 83-year-old male who in April of this year had a fall, which caused several pelvic fractures to occur. Since that time, he did go to rehab in [place], but from there, his has not been able to take care of him. She is not able to transfer him, to bathe him, or to get him in and out of bed or to help him with going to the bathroom. He has become weaker and weaker and unstable such that she brought him to the emergency room for further evaluation. In the emergency room, he was noted to have a white count of 18,400 with a left shift. He was noted to have a sodium of 121 and a lactic acid of 3.3. His urine evaluation showed 500 leukocyte esterase with greater than 50 wbc's. He also had blood present in his urine. His warfarin level had elevated to 4.5, despite being told to hold his warfarin and new dosages had been recommended by Dr. Espinal. This did not result in compliance. The patient's compliance has been an issue medically in the past as well. Dr. Espinal was contacted for admission. PAST MEDICAL HISTORY: Significant for the aforementioned recent pelvic fracture in May 15 of this year. He also has a history of pacemaker placement; diabetes , non-insulin dependent; hypertension; atrial fibrillation, which he takes warfarin; BPH; sick sinus syndrome; right-sided pelvic fracture in January of this year in addition to the most recent fracture; nonoperative management by the trauma team at that particular time. Medical noncompliance has always been a significant problem. Insomnia. PAST SURGICAL HISTORY: Includes right elbow surgery, right hip replacement, and pacemaker placement. 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 He currently has been trying to live at home with and has been using a cane to ambulate. He has not had any drug or alcohol use or tobacco use. MEDICATIONS ON ADMISSION: Include: 1. Coumadin 5 mg q.o.d. and 2.5 mg q.o.d. 2. Metformin 1000 mg b.i.d. 3. Tramadol 50 mg p.r.n. pain. 4. Terazosin 1 mg q.h.s. 5. Tamsulosin 0.4 mg p.o. q.h.s. 6. Surfak 2 tablets daily. 7. Melatonin 3 mg at q.h.s. 8. Gabapentin 100 mg b.i.d. 9. Pepcid 20 mg b.i.d. 10. Carvedilol 6.25 mg b.i.d. 11. Aspirin 81 mg daily. 12. Tylenol p.r.n. pain. REVIEW OF SYSTEMS: At the time of admission: CONSTITUTIONAL: Denies fever, but had general aches and pains and weakness. HEENT: No sores or lesions in ear, nose, or throat. Membranes are dry. CHEST: Denies shortness of breath or cough. CARDIOVASCULAR: Denies chest pain or palpitations. ABDOMEN: Denies nausea, vomiting, or diarrhea. : Has had urinary frequency and mild dysuria. No blood in urine or stool from his visual standpoint. MUSCULOSKELETAL: Limited use of all extremities. He has mainly been wheelchair and bedfast. This is last pelvic injury. SKIN: No new rashes or lesions. NEUROLOGIC: Denies headaches or trouble with mentation. PHYSICAL EXAMINATION: VITAL SIGNS: At the time of admission, blood pressure was 117/57, pulse 59, temperature 97.5 with respirations of 18, and O2 saturation 99% on room air. Weight 150 pounds. GENERAL: This is an elderly male, who looks somewhat malnourished with temporal wasting and sunken eyes. HEENT: Normocephalic with malnourished visual appearance with sunken temporal membranes like eyes. Sclera are anicteric. TMs and nares are clear. Pharynx is dry. NECK: Supple. CHEST: Clear to auscultation. HEART: Regular rate and rhythm without murmur. ABDOMEN: Soft, scaphoid. No appreciable organomegaly. : Deferred. EXTREMITIES: Without clubbing, cyanosis, or edema. Symmetric muscular wasting in upper and lower extremities is noted. SKIN: Has very poor turgor. No acute lesions are noted. NEUROLOGIC: Cranial nerves are intact. Unable to test gait and cerebellar function at this time. Sensory exam is grossly intact. Mental status is at baseline. There is some evidence of mild confusion and early dementia with forgetfulness being noted. LABORATORY DATA: On admission showed WBCs 18.4, hemoglobin 10.8, hematocrit 31.0 with platelets at 306. Sodium 121, potassium 5.0, chloride 91, CO2 of 22, BUN 23, creatinine 0.8 with greater than 90 GFR, glucose 181. Lactic acid 3.3. Liver functions unremarkable except for alkaline phosphatase of 132. Urinalysis showed 10 ketones, 500 leukocyte esterase with greater than 50 wbc's. PT is 42.5 and INR is 4.5. ASSESSMENT: 1. Hyponatremia. 2. Urinary tract infection. 3. Dehydration. 4. Severe deconditioning. 5. Malnutrition. 6. Overmedicated with anticoagulant warfarin. 7. Medical noncompliance. PLAN: 1. IV fluids to rehydrate him and IV antibiotics to fix infection. We will hold his warfarin so that he will become therapeutic and we will serially check that. 2. We will replace his sodium with normal saline. 3. We will get nutritional consult and supplement his diet. We will serially re-evaluate him. Job ID: [id number] MTDD
[2019-07-06] MEDS ORDERED: Dextrose 5% in Water 1,000 ML IV PRN (15:54)
[2019-07-06] MEDS ORDERED: Dextrose 50% Abboject 50 ML SYRINGE IVP PRN (15:54)
[2019-07-06] MEDS ORDERED: Milk Of Magnesia 30 ML UDCUP PO SCH (16:00)
[2019-07-06] MEDS: Terazosin HCl 1 MG CAP PO SCH (20:55)
[2019-07-06] MEDS: Tamsulosin HCl 0.4 MG CAP PO SCH (20:56)
[2019-07-06] MEDS: cefTRIAXone\\ROCEPHIN 1 GM in Sodium Chloride 0.9% 100 ML IVPB SCH (20:58)
[2019-07-07] MEDS: Sodium Chloride 0.9% 1,000 ML IV SCH ×3 (04:22→18:33)
[2019-07-07] MEDS: Insulin Regular 300 UNITS/3 ML VIAL SC PRN ×2 (06:29→15:54)
[2019-07-07 07:18] LABS: Prothrombin Time 39.5 SEC (12.0-14.7)
[2019-07-07 07:25] LABS: Anion Gap 9 mmol/L (10-20); BUN (Urea Nitrogen) 11 mg/dL (8.4-25.7); Calc. Creatinine Clearance 80 mL/min (70-130); Calcium 7.3 mg/dL (7.8-10.44); Carbon Dioxide 22 mmol/L (23-31); Chloride 97 mmol/L (98-107); Estimated GFR-MDRD Greater than 90; Glucose 211 mg/dL (83-110); Potassium 4.1 mmol/L (3.5-5.1); Sodium 124 mmol/L (136-145)
[2019-07-07 08:08] LABS: INR-International Normal Ratio 4.1
[2019-07-07] MEDS: metFORMIN 500 MG TAB PO SCH ×2 (08:49→20:38)
[2019-07-07] MEDS: Carvedilol 6.25 MG TAB PO SCH ×2 (08:49→20:31)
[2019-07-07] MEDS: Docusate Calcium (SURFAK) 240 MG CAP PO SCH ×2 (08:49→20:37)
[2019-07-07] MEDS: Famotidine 20 MG TAB PO SCH ×2 (08:50→20:37)
--- NOTE | 2019-07-07 14:53 | PQF ---
NEVA HARVEY, KAYY Chau MD [id number]- [id number] CLINICAL DOCUMENTATION IMPROVEMENT CLARIFICATION FORM: ICD-10 Updated PLEASE DO AN ADDENDUM TO THE PROGRESS NOTE WITH ANY DOCUMENTATION UPDATES OR ADDITIONS AND CARRY THROUGH TO DC SUMMARY. THANK YOU. Date: 07/07/2019 ATTN: DR. Manny LUCIO Please exercise your independent, professional judgment in responding to the clarification form. Clinical indicators are provided on the bottom of this form for your review. Please check appropriate box(s): [ ] Protein Calorie Malnutrition: [ x ] Mild [ ] Moderate [ ] Severe [ ] Other Malnutrition (please specify) __ [ ] Other diagnosis [ ] Unable to determine In addition, please specify: Present on Admission (POA): [ x ] Yes [ ] No [ ] Unable to determine CLINICAL INDICATORS - SIGNS / SYMPTOMS / LABS / RESULTS AND LOCATION IN MR 07/05 H&P (KHADIJAH) ASSESSMENT: 5). MALNUTRITION; NEUROLOGIC: THERE IS SOME EVIDENCE OF MILD CONFUSION AND EARLY DEMENTIA W/ FORGETFULNESS BEING NOTED. 07/06 DIETARY CONSULT : PT REPORTS DECREASED APPETITE PRIOR TO ADMIT, -3.5 % WEIGHT LOSS OVER THE PAST 8 WEEKS. RISK: ADVANCED AGE( 83, SEVERE DECONDITIONING, MILD CONFUSION , EARLY DEMENTIA (LUCIO /H&P) 07/05 MULTIPLE SKIN WOUNDS (/07/06) TREATMENTS: DIETARY CONSULT 07/06) RECOMMENDED GLUCERNA SHAKES TID Moderate Malnutrition (in acute illness) Energy Intake: <75% of estimated energy requirement for > 7 days Weight Loss: 1-2%/1 week; 5%/ 1 month; 7.5%/3 months Other: mild body fat loss; mild muscle mass loss; mild fluid accumulation; Severe Malnutrition (in acute illness) Energy Intake: < 50% of estimated energy requirement for > 5 days Weight Loss: >1-2%/1 week; >5%/1 month; >7.5%/3 months Other: moderate body fat loss; moderate muscle mass loss; moderate- severe fluid accumulation; measurably reduced health education specialist strength Moderate Malnutrition (in chronic illness) Energy Intake: <75% of estimated energy requirement for >1 month Weight Loss: 5%/1 month; 7.5%/3 months; 10%/6 months; 20%/1 year Other: mild body fat loss; mild muscle mass loss; mild fluid accumulation Severe Malnutrition (in chronic illness) Energy Intake: <75% of estimated energy requirement for >1 month Weight Loss: >5%/1 month; >7.5%/3 months; >10%/6 months; >20%/1 year Other: severe body fat loss; severe muscle mass loss; severe fluid accumulation ; measurably reduced health education specialist strength THANK YOU! KEN (This form is maintained as a part of the permanent medical record) 2015 [employer] All Rights Reserved [email or web address] [phone] MTDD
--- NOTE | 2019-07-07 15:07 | PQF ---
NEVA HARVEY MICHAEL E MD [id number] [id number]- [id number] CLINICAL DOCUMENTATION IMPROVEMENT CLARIFICATION FORM: ICD-10 Updated PLEASE DO AN ADDENDUM TO THE PROGRESS NOTE WITH ANY DOCUMENTATION UPDATES OR ADDITIONS AND CARRY THROUGH TO DC SUMMARY. THANK YOU. DATE: 07/07/2019 ATTN: DR. Manny LUCIO Please exercise your independent, professional judgment in responding to the clarification form. Clinical indicators are provided on the bottom of this form for your review. Please check appropriate box(s): [ x ] I (concur) with the Wound Care findings as stated below. [ ] Pressure Ulcer: [ ] Location: POA: [ ] Yes [ ] No[ ] Unable to determine Stage (I to IV): (Left Right Bilateral N/A ) [ ] Location: POA: [ ] Yes [ ] No[ ] Unable to determine Stage (I to IV): (Left Right Bilateral N/A ) [ ] Location: POA: [ ] Yes [ ] No[ ] Unable to determine Stage (I to IV): (Left Right Bilateral N/A ) [ ] Gangrene present [ ] Yes [ ] ischemic gangrene [ ] gas gangrene [ ] No [ ] Deep tissue injury [ ] Other diagnosis [ ] Unable to determine In addition, please specify: Present on Admission (POA): [ ] Yes [ ] No [ ] Unable to determine For continuity of documentation, please document condition throughout progress notes and discharge summary. Thank You. 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 SEVERE DECONDITIONING; SKIN : HAS VERY POOR TURGOR RISK: ADVANCED AGE (83), MALNUTRITION, SEVERE DECONDITIONING 07/05 H&P (KHADIJAH) TREATMENTS: HIBICLENS WASH DAILY 07/06 PHYSICAL THERAPY ORDERED 07/05 PRESSURE ULCER STAGES Stage I: Erythema Stage II: Partial thickness Stage III: Full thickness Stage IV: Necrosis to muscle/bone THANK YOU! KEN (This form is maintained as a part of the permanent medical record) 2014 [employer] All Rights Reserved [email or web address] [phone] MTDD
[2019-07-07] MEDS: cefTRIAXone\\ROCEPHIN 1 GM in Sodium Chloride 0.9% 100 ML IVPB SCH (20:32)
[2019-07-07] MEDS: Tamsulosin HCl 0.4 MG CAP PO SCH (20:38)
[2019-07-07] MEDS: rOPINIRole HCl 1 MG TAB PO SCH (20:38)
[2019-07-07] MEDS: Terazosin HCl 1 MG CAP PO SCH (20:38)
[2019-07-08] MEDS: Sodium Chloride 0.9% 1,000 ML IV SCH ×3 (03:10→19:42)
[2019-07-08 05:38] LABS: Hemoglobin A1c 6.6 % (4.0-6.0)
[2019-07-08 05:39] LABS: INR-International Normal Ratio 2.7; Prothrombin Time 28.3 SEC (12.0-14.7)
[2019-07-08 05:55] LABS: Anion Gap 10 mmol/L (10-20); BUN (Urea Nitrogen) 11 mg/dL (8.4-25.7); Calc. Creatinine Clearance 91 mL/min (70-130); Calcium 7.3 mg/dL (7.8-10.44); Carbon Dioxide 20 mmol/L (23-31); Chloride 100 mmol/L (98-107); Estimated GFR-MDRD Greater than 90; Glucose 151 mg/dL (83-110); Sodium 126 mmol/L (136-145)
[2019-07-08 06:00] LABS: Band 1 % (5-11); Eosinophils 23 % (0-10); Hemoglobin 9.2 g/dL (14.0-18.0); Hypochromia SLIGHT = 6-15 cells (100X) (0-5/hpf); Lymphocytes 1 % (21-51); MDiff Complete? YES; Mean Corpuscular HGB CONC 34.5 g/dL (32.0-36.0); Mean Corpuscular Volume 95.6 fL (78.0-98.0); Mean Platelet Volume 6.5 fL (7.4-10.4); Monocytes 1 % (0-10); Neutrophil 74 % (42-75); Platelet Count 245 thou/uL (130-400); Platelet Morphology Comment Appears Adequate; RBC Distribution Width 12.9 % (11.5-14.5); Red Blood Cell (RBC) Count 2.77 mill/uL (4.70-6.10); White Blood Cell (WBC) Count 16.1 thou/uL (4.8-10.8)
[2019-07-08] MEDS: metFORMIN 500 MG TAB PO SCH ×2 (08:51→17:18)
[2019-07-08] MEDS: Famotidine 20 MG TAB PO SCH ×2 (08:52→21:53)
[2019-07-08] MEDS: Docusate Calcium (SURFAK) 240 MG CAP PO SCH ×2 (08:52→21:53)
[2019-07-08] MEDS: Carvedilol 6.25 MG TAB PO SCH ×2 (08:52→21:53)
[2019-07-08] MEDS: Nitrofurantoin Monohyd/M-Cryst 100 MG CAP PO SCH ×2 (10:30→21:53)
[2019-07-08] MEDS ORDERED: Sodium Chloride 0.9% 1,000 ML IV SCH (16:00)
[2019-07-08] MEDS ORDERED: Warfarin Sodium 2 MG TAB PO SCH (17:00)
[2019-07-08] MEDS: Insulin Regular 300 UNITS/3 ML VIAL SC PRN (17:14)
[2019-07-08] MEDS: Terazosin HCl 1 MG CAP PO SCH (21:53)
[2019-07-08] MEDS: rOPINIRole HCl 1 MG TAB PO SCH (21:53)
[2019-07-08] MEDS: Tamsulosin HCl 0.4 MG CAP PO SCH (21:53)
[2019-07-09] MEDS: Sodium Chloride 0.9% 1,000 ML IV SCH ×3 (03:08→14:20)
[2019-07-09 06:00] LABS: INR-International Normal Ratio 2.2; Prothrombin Time 24.5 SEC (12.0-14.7)
[2019-07-09 06:18] LABS: Eosinophils 29 % (0-10); Hemoglobin 9.4 g/dL (14.0-18.0); Lymphocytes 11 % (21-51); MDiff Complete? YES; Mean Corpuscular HGB CONC 34.1 g/dL (32.0-36.0); Mean Corpuscular Hemoglobin 32.5 pg (27.0-31.0); Mean Corpuscular Volume 95.2 fL (78.0-98.0); Mean Platelet Volume 6.5 fL (7.4-10.4); Monocytes 4 % (0-10); Neutrophil 56 % (42-75); Platelet Count 275 thou/uL (130-400); Platelet Morphology Comment Appears Adequate; RBC Distribution Width 13.1 % (11.5-14.5); Red Blood Cell (RBC) Count 2.88 mill/uL (4.70-6.10); White Blood Cell (WBC) Count 15.5 thou/uL (4.8-10.8)
[2019-07-09 06:21] LABS: Anion Gap 12 mmol/L (10-20); BUN (Urea Nitrogen) 13 mg/dL (8.4-25.7); Calc. Creatinine Clearance 81 mL/min (70-130); Calcium 7.5 mg/dL (7.8-10.44); Carbon Dioxide 20 mmol/L (23-31); Chloride 100 mmol/L (98-107); Estimated GFR-MDRD Greater than 90; Glucose 133 mg/dL (83-110); Potassium 4.1 mmol/L (3.5-5.1); Sodium 128 mmol/L (136-145)
[2019-07-09] MEDS: metFORMIN 500 MG TAB PO SCH (08:05)
[2019-07-09] MEDS: Nitrofurantoin Monohyd/M-Cryst 100 MG CAP PO SCH (08:06)
[2019-07-09] MEDS: Carvedilol 6.25 MG TAB PO SCH (08:06)
[2019-07-09] MEDS: Famotidine 20 MG TAB PO SCH (08:06)
[2019-07-09] MEDS: Docusate Calcium (SURFAK) 240 MG CAP PO SCH (08:06)
[2019-07-09 08:10] VITALS: BP 120/62
[2019-07-09 08:13] VITALS: TEMP 97.5
--- NOTE | 2019-07-10 05:57 | PQF ---
[employer] Winform ViewerMISBAHVADIMNEVAKAYY MIX MD [id number] [facility] [id number] CLINICAL DOCUMENTATION CLARIFICATION FORM: POST DISCHARGE Addendum to original discharge summary date: ____ Late entry note date: __ DATE: 07/10/2019 ATTN: KAYY LUCIO MD Please exercise your independent, professional judgment in responding to the clarification form. Clinical indicators are provided on the bottom of this form for your review Please check appropriate box(es): [ X] Sepsis [ ] Severe sepsis [ ] Septic Shock [ ] Localized infection without sepsis [ ] Other diagnosis [ ] Unable to determine In addition, please specify: Present on Admission (POA): [ X ] Yes [ ] No [ ] Unable to determine For continuity of documentation, please document condition throughout progress notes and discharge summary. Thank You. CLINICAL INDICATORS - SIGNS / SYMPTOMS / LABS WBC 18.4 on 07/05 - Documented in Laboratory Elevated Lactic acid 3.3 on 07/05 - Documented in Laboratory BP 117/57 on 07/06 and 112/56 on 07/07 - Documented in Vital Signs RISK FACTORS UTI Hyponatremia Moderate Malnutrition TREATMENTS: IV antibiotics to fix infection - Documented in H&P on 07/05 by KAYY LUCIO MD Ceftriaxone 1gm - Medication report (This form is maintained as a part of the permanent medical record) 2014 [employer]. All Rights Reserved [employer] Reports Winform [email or web address] [not provided] MTDD
== END 2019-07-09 15:05 | DRG 872 ==
LOC: ERS 17:45 → T4-B 20:59
PROVIDERS: ADMIT Specialist; ATTEND Specialist
DX: A41.9 Sepsis, unspecified organism (principal); N39.0 Urinary tract infection, site not specified; E87.1 Hypo-osmolality and hyponatremia; E44.1 Mild protein-calorie malnutrition; E11.9 Type 2 diabetes mellitus without complications; I10 Essential (primary) hypertension; I48.91 Unspecified atrial fibrillation; Z96.641 Presence of right artificial hip joint; E86.0 Dehydration; R53.81 Other malaise; Z95.0 Presence of cardiac pacemaker; Z79.4 Long term (current) use of insulin; Z79.01 Long term (current) use of anticoagulants; Z79.84 Long term (current) use of oral hypoglycemic drugs; Z79.899 Other long term (current) drug therapy; Z79.82 Long term (current) use of aspirin; Z91.14 Patient's other noncompliance with medication regimen; Z68.22 Body mass index [BMI] 22.0-22.9, adult
CPT/HCPCS: 36415; 36416; 51702; 71045; 80048; 80053; 81003; 81015; 82570; 83036; 83605; 84300; 85025; 85610; 85730; 87040; 87077; 87086; 87186; 93005; 96374; J0696; J1815; J3490

== ENCOUNTER 2019-10-01 11:22 | Emergency (ER) | payer MEDICARE, OTHER ==
[2019-10-01 12:39] LABS: #Eosinphils 0.3 thou/uL (0.0-0.7); #Lymphocytes 1.2 thou/uL (1.20-3.40); #Monocytes 1.1 thou/uL (0.11-0.59); #Neutrophils 5.4 thou/uL (1.40-6.50); %Basophils 0.5 % (0.0-1.0); %Eosinophils 3.2 % (0.0-10.0); %Lymphocytes 14.5 % (21.0-51.0); %Neutrophils 67.8 % (42.0-75.0); Hemoglobin 10.4 g/dL (14.0-18.0); Mean Corpuscular HGB CONC 33.3 g/dL (32.0-36.0); Mean Corpuscular Hemoglobin 30.8 pg (27.0-31.0); Mean Corpuscular Volume 92.7 fL (78.0-98.0); Mean Platelet Volume 6.7 fL (7.4-10.4); Platelet Count 237 thou/uL (130-400); RBC Distribution Width 13.4 % (11.5-14.5); Red Blood Cell (RBC) Count 3.39 mill/uL (4.70-6.10)
[2019-10-01 13:05] LABS: ALT (SGPT) 9 U/L (8-55); AST (SGOT) 20 U/L (5-34); Albumin 3.9 g/dL (3.4-4.8); Alkaline Phosphatase 101 U/L (40-110); Anion Gap 11 mmol/L (10-20); BUN (Urea Nitrogen) 15 mg/dL (8.4-25.7); Bilirubin, Total 0.7 mg/dL (0.2-1.2); Calc. Creatinine Clearance 0 mL/min (70-130); Carbon Dioxide 26 mmol/L (23-31); Chloride 88 mmol/L (98-107); Estimated GFR-MDRD Greater than 90; Globulin 2.9 g/dL (2.4-3.5); Glucose 113 mg/dL (83-110); Potassium 4.2 mmol/L (3.5-5.1); Protein, Total 6.8 g/dL (5.8-8.1); Sodium 121 mmol/L (136-145)
== END 2019-10-01 14:15 | disposition home or self-care (01) ==
LOC: ERS 11:22
DX: E87.1 Hypo-osmolality and hyponatremia (principal); E11.9 Type 2 diabetes mellitus without complications; Z79.899 Other long term (current) drug therapy
CPT/HCPCS: 36415; 80053; 85025; 93005

== ENCOUNTER 2019-10-02 23:13 | Emergency (ER) | payer OTHER, MEDICARE ==
[2019-10-03 01:15] LABS: Anion Gap 13 mmol/L (10-20); BUN (Urea Nitrogen) 18 mg/dL (8.4-25.7); Calc. Creatinine Clearance 0 mL/min (70-130); Calcium 9.4 mg/dL (7.8-10.44); Carbon Dioxide 26 mmol/L (23-31); Chloride 88 mmol/L (98-107); Estimated GFR-MDRD Greater than 90; Glucose 122 mg/dL (83-110); Potassium 4.6 mmol/L (3.5-5.1); Sodium 122 mmol/L (136-145)
== END 2019-10-03 02:26 ==
LOC: ERS 23:13
DX: E87.1 Hypo-osmolality and hyponatremia (principal); E11.9 Type 2 diabetes mellitus without complications; Z79.899 Other long term (current) drug therapy
CPT/HCPCS: 36415; 80048; 83880; 99283

== ENCOUNTER 2019-10-08 10:53 | Inpatient (IN) | payer MEDICARE, MEDICAID ==
[2019-10-08] MEDS ORDERED: Cefepime 2 GM VIAL ONE (12:50)
[2019-10-08] MEDS ORDERED: Vancomycin 1 GM/200 ML BAG ONE (12:56)
[2019-10-08 13:06] LABS: #Basophils 0.1 thou/uL (0.0-0.2); #Eosinphils 0.5 thou/uL (0.0-0.7); #Lymphocytes 1.3 thou/uL (1.20-3.40); #Neutrophils 4.1 thou/uL (1.40-6.50); %Basophils 1.3 % (0.0-1.0); %Eosinophils 6.7 % (0.0-10.0); %Lymphocytes 19.4 % (21.0-51.0); %Monocytes 13.7 % (0.0-10.0); Hemoglobin 9.9 g/dL (14.0-18.0); Mean Corpuscular HGB CONC 33.4 g/dL (32.0-36.0); Mean Corpuscular Hemoglobin 30.9 pg (27.0-31.0); Mean Corpuscular Volume 92.6 fL (78.0-98.0); Mean Platelet Volume 6.6 fL (7.4-10.4); Platelet Count 274 thou/uL (130-400); RBC Distribution Width 13.2 % (11.5-14.5); Red Blood Cell (RBC) Count 3.21 mill/uL (4.70-6.10); White Blood Cell (WBC) Count 6.9 thou/uL (4.8-10.8)
[2019-10-08] MEDS ORDERED: Cefepime 2 GM in Sodium Chloride 0.9% 100 ML IVPB SCH (13:15)
[2019-10-08 13:28] LABS: ALT (SGPT) 10 U/L (8-55); AST (SGOT) 20 U/L (5-34); Albumin 3.9 g/dL (3.4-4.8); Alkaline Phosphatase 106 U/L (40-110); Anion Gap 10 mmol/L (10-20); BUN (Urea Nitrogen) 16 mg/dL (8.4-25.7); Bilirubin, Total 0.5 mg/dL (0.2-1.2); Calc. Creatinine Clearance 0 mL/min (70-130); Calcium 9.4 mg/dL (7.8-10.44); Carbon Dioxide 28 mmol/L (23-31); Chloride 92 mmol/L (98-107); Estimated GFR-MDRD Greater than 90; Globulin 2.9 g/dL (2.4-3.5); Glucose 112 mg/dL (83-110); Potassium 4.4 mmol/L (3.5-5.1); Protein, Total 6.8 g/dL (5.8-8.1); Sodium 126 mmol/L (136-145)
--- NOTE | 2019-10-08 13:39 | RAD ---
XR Foot Rt 3 View STANDARD INDICATION: Sore on right fourth digit COMPARISON: Prior exam dated October 28, 2008 FINDINGS: Bones: There are partial ray amputations of the great toe, second digit and third digit through the m etatarsals. The fourth and fifth digits are held in hyperextension at the MTP joints and hyperflexion at the PIP joints. This limits the evaluation of the fourth and fifth digits. There is s oft tissue swelling surrounding the fourth digit. No destructive osteolysis is present. 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 Lisfranc alignment: Lisfranc alignment appears within normal limits. Soft tissues: There is soft tissue swelling surrounding the forefoot amputation sites. There is soft tissue swelling involving the dorsal aspect of midfoot and hindfoot. IMPRESSION: No definite destructive osteolysis to suggest presence of osteomyelitis by radiography. 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
--- NOTE | 2019-10-08 15:20 | HP ---
PRIMARY CARE PHYSICIAN: Adelfo Espinal MD REASON FOR ADMISSION: Sent from residential for diabetic foot infection. HISTORY OF PRESENT ILLNESS: An 84-year-old male, who lives at [facility]. The patient was having erythema and tenderness over his right fourth toe. The patient has previous history of ray amputation of right great toe, second digit, and third digit. The patient was not having any fever at residential. The patient also had sore foot on the left side as well and that is why the patient was sent to emergency room for evaluation. PAST MEDICAL HISTORY: Pacemaker, diabetes type 2, hypertension, atrial fibrillation, sick sinus syndrome required pacemaker, benign enlargement of prostate, and history of pelvic fracture. PAST SURGICAL HISTORY: Right elbow surgery, right hip replacement, pacemaker placement. PAST PSYCHIATRIC HISTORY: Reviewed and negative. SOCIAL HISTORY: The patient is currently at [facility]. No history of alcohol or illicit drug abuse. REVIEW OF SYSTEMS: CONSTITUTIONAL: Negative for weight loss or gain, ability to conduct usual activities. SKIN: Negative for rash, itching. EYES: Negative for double vision, pain. ENT/MOUTH: Negative for nose bleeding, neck stiffness, pain, tenderness. CARDIOVASCULAR: Negative for palpitations, dyspnea on exertion, orthopnea. RESPIRATORY: Negative for shortness of breath, wheezing, cough, hemoptysis, fever or night sweats. GASTROINTESTINAL: Negative for poor appetite, abdominal pain, heartburn, nausea, vomiting, constipation, or diarrhea. GENITOURINARY: Negative for urgency, frequency, dysuria, nocturia. MUSCULOSKELETAL: Negative for pain, swelling. NEUROLOGIC/PSYCHIATRIC: Negative for anxiety, depression. ALLERGY/IMMUNOLOGIC: Negative for skin rash, bleeding tendency. Please see my HPI for pertinent positives and negatives. All other review of systems reviewed and negative except as mentioned in HPI. ALLERGIES: PENICILLIN. CURRENT HOME MEDICATIONS: 1. MiraLAX 17 g p.o. daily p.r.n. 2. Multivitamin one tablet daily. 3. Zofran p.r.n. 4. Ropinirole 1 mg at bedtime. 5. Senokot two tab daily. 6. Systane eye drops as directed. 7. Flomax 0.4 mg daily. 8. Zyrtec 10 mg daily. EMERGENCY ROOM COURSE: The patient has received cefepime, vancomycin, IV fluid. PHYSICAL EXAMINATION: VITAL SIGNS: On arrival, blood pressure 146/60, pulse 62, respiratory rate 16, temperature 97.9, and saturation 100% on room air. Weight 58.9 kg. GENERAL: The patient is currently alert, awake, no acute distress. HEENT: Head, normocephalic, atraumatic. NECK: Supple. No JVD. No meningeal signs of irritation. LUNGS: Clear to auscultation without any rhonchi or rales. CARDIAC: S1 and S2 appears regular. No murmur. No gallop. No rub. ABDOMEN: Soft. Bowel sounds present. Nontender, nondistended. No organomegaly. No mass. EXTREMITIES: Left foot with brace. Right lower extremity erythema noted over toe. The patient also has erythema on left foot too. PSYCHIATRIC: Normal affect. SIGNIFICANT LABORATORY DATA: environmental monitoring specialist showing sinus rhythm. X-ray foot showing no definite evidence of osteomyelitis. Extensive partial ray amputation of right great toe second digit and third digit. CBC; WBC 6.9, hemoglobin 9.9, and platelet 274. ESR 29. BMP; sodium 126, potassium 4.4, chloride 92, carbon dioxide 28, BUN 16, creatinine 0.73, glucose 112, and calcium 9.4. LFT; AST 20, ALT 10, alkaline phosphatase 106, albumin 3.9. CRP 4.87. ASSESSMENT: 1. Diabetic toe infection with cellulitis of right foot. 2. Hyponatremia. 3. Anemia of chronic disease. 4. History of diabetes, type 2. 5. History of atrial fibrillation, not a good candidate for chronic anticoagulation. 6. Benign enlargement of prostate. 7. Physical deconditioning. PLAN: The patient will be admitted to medical floor. The patient will need IV antibiotic therapy, cefepime and vancomycin. We will follow up on culture result. The patient will need evaluation for need for any kind of surgical intervention if no response to antibiotic therapy. We will resume his selected home medication. The patient will be given IV fluid with NS at 100 mL/h. We will repeat labs tomorrow. DVT prophylaxis. Lovenox 40 mg subcu daily. GI prophylaxis. Pepcid 20 mg p.o. b.i.d. Code status, the patient is full code. Wound Care Team will be consulted for wound care. Disposition plan; based on clinical course, we are expecting the patient's stay in hospital more than 2 midnights. Plan of care discussed with the patient in detail. Job ID: [id number]
[2019-10-08] MEDS ORDERED: Ondansetron PF 4 MG/2 ML Vial IVP PRN (16:47)
[2019-10-08] MEDS ORDERED: Zolpidem Tartrate 5 MG TAB PO PRN (16:47)
[2019-10-08] MEDS ORDERED: HumaLOG 300 UNITS/3 ML VIAL SC PRN ×2 (16:47)
[2019-10-08] MEDS ORDERED: Bisacodyl 10 MG SUPP PR PRN (16:47)
[2019-10-08] MEDS ORDERED: Loperamide HCl 2 MG CAP PO PRN (16:47)
[2019-10-08] MEDS ORDERED: Dextrose 5% in Water 1,000 ML IV PRN (16:47)
[2019-10-08] MEDS ORDERED: Calcium Carbonate 500 MG ChewTAB PO PRN (16:47)
[2019-10-08] MEDS ORDERED: Acetaminophen 325 MG TAB PO PRN (16:47)
[2019-10-08] MEDS ORDERED: Ondansetron ODT 4 MG TAB PO PRN (16:47)
[2019-10-08] MEDS ORDERED: HYDROcodone/Acetaminophen 5/325 mg Tablet PO PRN (16:47)
[2019-10-08] MEDS ORDERED: Senokot S 8.6-50 MG TAB PO PRN (16:47)
[2019-10-08] MEDS ORDERED: Dextrose 50% Abboject 50 ML SYRINGE SLOW IVP PRN (16:47)
[2019-10-08 17:02] LABS: Bilirubin Negative (Negative); Blood, Urine Negative (Negative); Clarity Clear (Clear); Glucose, Urine (Dipstick) Normal (Negative); Leukocyte Negative Leu/uL (Negative); Nitrite Negative (Negative); Protein, Urine (Dipstick) Negative (Neg-Trace); Urobilinogen Normal mg/dL (Less than 2)
[2019-10-08 17:47] VITALS: BMI 19.8
[2019-10-08] MEDS: Sodium Chloride 0.9% 1,000 ML IV SCH (18:33)
[2019-10-08] MEDS: Famotidine 20 MG TAB PO SCH (20:54)
[2019-10-08] MEDS: rOPINIRole HCl 1 MG TAB PO SCH (20:54)
[2019-10-08] MEDS: Tamsulosin HCl 0.4 MG CAP PO SCH (20:59)
[2019-10-09] MEDS: Cefepime 2 GM in Sodium Chloride 0.9% 100 ML IVPB SCH ×2 (00:20→14:34)
[2019-10-09] MEDS: Vancomycin HCl 750 MG in Sodium Chloride 0.9% 250 ML 250 ML IVPB SCH ×2 (00:24→14:34)
[2019-10-09 06:20] LABS: #Basophils 0.1 thou/uL (0.0-0.2); #Eosinphils 0.6 thou/uL (0.0-0.7); #Lymphocytes 1.3 thou/uL (1.20-3.40); #Monocytes 0.7 thou/uL (0.11-0.59); #Neutrophils 3.4 thou/uL (1.40-6.50); %Eosinophils 9.8 % (0.0-10.0); %Monocytes 11.2 % (0.0-10.0); Hemoglobin 9.3 g/dL (14.0-18.0); Mean Corpuscular HGB CONC 34.5 g/dL (32.0-36.0); Mean Corpuscular Hemoglobin 31.5 pg (27.0-31.0); Mean Corpuscular Volume 91.1 fL (78.0-98.0); Mean Platelet Volume 6.4 fL (7.4-10.4); Platelet Count 243 thou/uL (130-400); RBC Distribution Width 12.9 % (11.5-14.5); Red Blood Cell (RBC) Count 2.95 mill/uL (4.70-6.10)
[2019-10-09 06:40] LABS: Anion Gap 10 mmol/L (10-20); BUN (Urea Nitrogen) 10 mg/dL (8.4-25.7); Calc. Creatinine Clearance 69 mL/min (70-130); Calcium 8.6 mg/dL (7.8-10.44); Carbon Dioxide 22 mmol/L (23-31); Chloride 97 mmol/L (98-107); Estimated GFR-MDRD Greater than 90; Glucose 111 mg/dL (83-110); Potassium 4.1 mmol/L (3.5-5.1); Sodium 125 mmol/L (136-145)
[2019-10-09] MEDS: Sodium Chloride 0.9% 1,000 ML IV SCH ×2 (08:36→22:10)
[2019-10-09] MEDS: Enoxaparin Sodium 40 MG/0.4 ML SYRINGE SC SCH (08:37)
[2019-10-09] MEDS: Saccharomyces boulardii 250 MG CAP PO SCH (08:37)
[2019-10-09] MEDS: Famotidine 20 MG TAB PO SCH ×2 (08:38→20:13)
[2019-10-09] MEDS: Multivitamin W/ Minerals 1 TAB PO SCH (08:38)
[2019-10-09] MEDS: Polyethylene Glycol 3350 17 GM Packet PO SCH (08:39)
[2019-10-09] MEDS ORDERED: Tamsulosin HCl 0.4 MG CAP PO SCH (09:00)
[2019-10-09] MEDS ORDERED: Insulin Regular 300 UNITS/3 ML VIAL SC PRN (19:45)
[2019-10-09] MEDS: Tamsulosin HCl 0.4 MG CAP PO SCH (20:13)
[2019-10-09] MEDS: rOPINIRole HCl 1 MG TAB PO SCH (20:13)
[2019-10-10] MEDS: Cefepime 2 GM in Sodium Chloride 0.9% 100 ML IVPB SCH ×2 (00:20→12:43)
[2019-10-10] MEDS: Sodium Chloride 0.9% 1,000 ML IV SCH ×3 (00:23→17:15)
[2019-10-10] MEDS: Vancomycin HCl 750 MG in Sodium Chloride 0.9% 250 ML 250 ML IVPB SCH (01:54)
[2019-10-10] MEDS: Vancomycin 1 GM in Premix Bag 1 BAG IVPB SCH ×2 (02:04→14:11)
[2019-10-10 05:59] LABS: #Basophils 0.1 thou/uL (0.0-0.2); #Eosinphils 0.6 thou/uL (0.0-0.7); #Lymphocytes 1.2 thou/uL (1.20-3.40); #Monocytes 0.7 thou/uL (0.11-0.59); #Neutrophils 4.4 thou/uL (1.40-6.50); %Basophils 1.1 % (0.0-1.0); %Eosinophils 8.3 % (0.0-10.0); %Lymphocytes 17.6 % (21.0-51.0); %Monocytes 9.8 % (0.0-10.0); %Neutrophils 63.3 % (42.0-75.0); Mean Corpuscular Hemoglobin 31.1 pg (27.0-31.0); Mean Corpuscular Volume 91.7 fL (78.0-98.0); Mean Platelet Volume 6.7 fL (7.4-10.4); Platelet Count 240 thou/uL (130-400); RBC Distribution Width 13.1 % (11.5-14.5); Red Blood Cell (RBC) Count 2.88 mill/uL (4.70-6.10); White Blood Cell (WBC) Count 6.9 thou/uL (4.8-10.8)
[2019-10-10 06:05] LABS: Hemoglobin A1c 6.1 % (4.0-6.0)
[2019-10-10 06:25] LABS: Anion Gap 10 mmol/L (10-20); BUN (Urea Nitrogen) 10 mg/dL (8.4-25.7); Calc. Creatinine Clearance 61 mL/min (70-130); Calcium 8.6 mg/dL (7.8-10.44); Carbon Dioxide 25 mmol/L (23-31); Cardiac Risk 2.1 (Less than 4.5); Chloride 95 mmol/L (98-107); Cholesterol 111 mg/dl (< 200 Desired); Estimated GFR-MDRD Greater than 90; Glucose 141 mg/dL (83-110); HDL Cholesterol 53 mg/dL (>60 Neg Risk); LDL Cholesterol, Calculated 53 mg/dL; Potassium 4.5 mmol/L (3.5-5.1); Sodium 125 mmol/L (136-145); Triglycerides 25 mg/dL (Less than 150)
[2019-10-10] MEDS ORDERED: cloNIDine 0.1 MG TAB PO PRN (08:18)
[2019-10-10] MEDS: Saccharomyces boulardii 250 MG CAP PO SCH (10:17)
[2019-10-10] MEDS: Terazosin HCl 1 MG CAP PO SCH (10:17)
[2019-10-10] MEDS: Polyethylene Glycol 3350 17 GM Packet PO SCH (10:17)
[2019-10-10] MEDS: Enoxaparin Sodium 40 MG/0.4 ML SYRINGE SC SCH (10:17)
[2019-10-10] MEDS: Famotidine 20 MG TAB PO SCH ×2 (10:17→20:41)
[2019-10-10] MEDS: Multivitamin W/ Minerals 1 TAB PO SCH (10:17)
--- NOTE | 2019-10-10 13:51 | CON ---
DATE OF CONSULTATION: HISTORY OF PRESENT ILLNESS: Gasper Lynch is an 84-year-old male patient of [facility] resident has eroded his right 4th toe with exposed bone. X-rays do not show osteomyelitis, but the wound is open to the DIP. He has been seeing Dr. Dsouza on occasion. He has had previous amputation of his right 1st, 2nd, and 3rd toes performed by me on 11/10/2008. When I debrided plantar callus right foot, at that time I did an amputation of the right great and 3rd toe and more proximal amputation of the right 2nd metatarsal, as he has had prior amputation of the 2nd toe. ALLERGIES: PENICILLIN. SOCIAL HISTORY: Tobacco, none. Alcohol, none. 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 HOME MEDICATIONS: 1. Multivitamins. 2. Eliquis. 3. . 4. Carvedilol. 5. Tylenol. 6. Colace. 7. MiraLAX. 8. Zofran. 9. Pepcid. 10. Surfak. 11. Flomax. 12. Requip. 13. Metformin. PAST SURGICAL HISTORY: Prior amputation of right 1st, 2nd, and 3rd toes, right hip arthroplasty, ORIF of right leg, shoulder surgery. Colonoscopy never. FAMILY HISTORY: Not obtainable reliably. REVIEW OF SYSTEMS: Ten-point noncontributory otherwise. PHYSICAL EXAMINATION: VITAL SIGNS: Height 5 feet and 6 inches, 142 pounds, 19 BMI. LUNGS: Clear to auscultation. CARDIAC: Regular rate and rhythm without murmur or gallop. ABDOMEN: Soft and nontender. Pacemaker present. EXTREMITIES: Palpable femoral, popliteal, posterior tibial pulse. Prior amputation right 1st, 2nd, and 3rd toes. The wound overlying the interphalangeal joint of the 4th toe with exposed bone. LABORATORY DATA: White count 6, hemoglobin 9. Sodium 125, potassium 4.5, creatinine 0.69, glucose 136. ASSESSMENT AND PLAN: 1. Diabetic wound, right 4th toe with exposed joint. We will plan amputation of right 4th toe through the proximal phalanx with probable primary wound closure. He can go home on oral antibiotics. Intravenous antibiotics can be discontinued. From my standpoint, he can be discharged home tomorrow back to [facility]. He will follow up in my office in about a week and a half to 2 weeks for suture removal. Postoperative shoe can be used when out of bed. 2. Diabetes mellitus. 3. Pacemaker status. Echocardiogram in May 2014, read by Dr. Quinteros, followed by Dr. Riddle as an outpatient. 50 to 55%. Job ID: [id number]
[2019-10-10] MEDS: Tamsulosin HCl 0.4 MG CAP PO SCH (20:41)
[2019-10-10] MEDS: rOPINIRole HCl 1 MG TAB PO SCH (20:41)
[2019-10-11] MEDS: Cefepime 2 GM in Sodium Chloride 0.9% 100 ML IVPB SCH (00:07)
[2019-10-11] MEDS: Vancomycin 1 GM in Premix Bag 1 BAG IVPB SCH (01:41)
[2019-10-11 05:49] LABS: #Eosinphils 0.7 thou/uL (0.0-0.7); #Lymphocytes 1.4 thou/uL (1.20-3.40); #Monocytes 0.8 thou/uL (0.11-0.59); %Basophils 0.7 % (0.0-1.0); %Eosinophils 10.9 % (0.0-10.0); %Lymphocytes 19.7 % (21.0-51.0); %Monocytes 11.2 % (0.0-10.0); %Neutrophils 57.6 % (42.0-75.0); Hemoglobin 9.4 g/dL (14.0-18.0); Mean Corpuscular HGB CONC 33.8 g/dL (32.0-36.0); Mean Corpuscular Hemoglobin 31.2 pg (27.0-31.0); Mean Corpuscular Volume 92.2 fL (78.0-98.0); Mean Platelet Volume 6.7 fL (7.4-10.4); Platelet Count 258 thou/uL (130-400); Red Blood Cell (RBC) Count 3.02 mill/uL (4.70-6.10); White Blood Cell (WBC) Count 6.9 thou/uL (4.8-10.8)
[2019-10-11 06:09] LABS: Anion Gap 8 mmol/L (10-20); BUN (Urea Nitrogen) 9 mg/dL (8.4-25.7); Calc. Creatinine Clearance 63 mL/min (70-130); Calcium 8.5 mg/dL (7.8-10.44); Carbon Dioxide 26 mmol/L (23-31); Chloride 94 mmol/L (98-107); Estimated GFR-MDRD Greater than 90; Glucose 150 mg/dL (83-110); Potassium 4.4 mmol/L (3.5-5.1); Sodium 124 mmol/L (136-145)
[2019-10-11] MEDS: Enoxaparin Sodium 40 MG/0.4 ML SYRINGE SC SCH (09:45)
[2019-10-11] MEDS: Famotidine 20 MG TAB PO SCH (09:46)
[2019-10-11] MEDS: Multivitamin W/ Minerals 1 TAB PO SCH (09:46)
[2019-10-11] MEDS: Polyethylene Glycol 3350 17 GM Packet PO SCH (09:46)
[2019-10-11] MEDS: Terazosin HCl 1 MG CAP PO SCH (09:46)
[2019-10-11] MEDS: Saccharomyces boulardii 250 MG CAP PO SCH (09:46)
[2019-10-11] MEDS ORDERED: traMADol HCl 50 MG TAB PO PRN (10:07)
[2019-10-11] MEDS ORDERED: Acetaminophen 500 MG TAB PO PRN (10:07)
[2019-10-11] MEDS ORDERED: Bupivacaine PF 0.5% 30 ML VIAL ONE (10:52)
[2019-10-11] MEDS ORDERED: Lidocaine 1% w/Epinephrine 1:100K 20 ML VIAL ONE (10:52)
[2019-10-11] MEDS ORDERED: PROPOFOL 20 ML ONE (11:01)
[2019-10-11] MEDS ORDERED: Fentanyl 100 MCG/2 ML VIAL ONE (11:01)
[2019-10-11] MEDS ORDERED: Ondansetron HCl/PF 4 MG/2 ML Vial IVP PRN (11:43)
[2019-10-11 12:25] VITALS: BP 142/61; TEMP 97.5
--- NOTE | 2019-10-11 12:26 | OP ---
DATE OF PROCEDURE: 10/11/2019 PREOPERATIVE DIAGNOSIS: Diabetic right 4th toe infection, previous amputation of the toes 1, 2, and 3, with open wound over the proximal interphalangeal joint. POSTOPERATIVE DIAGNOSIS: Diabetic right 4th toe infection, previous amputation of the toes 1, 2, and 3, with open wound over the proximal interphalangeal joint with good bleeding noted. PROCEDURE PERFORMED: Amputation of right 4th toe through the proximal phalanx with irrigation and primary closure noted. ANESTHESIA: Sedation TIVA. DESCRIPTION OF PROCEDURE: The patient was taken to the operating room where under TIVA anesthesia, right lower extremity was prepared with ChloraPrep and draped in routine fashion. The patient had previous amputation of toes 1, ,2, and 3 in metatarsals. Amputation of 4th toe carried out with a circumferential incision around the proximal phalanx which was amputated and resected proximally and connective tissue debrided. There was excellent bleeding. Wound irrigated. Subcutaneous tissue was approximated with 4-0 Monocryl, skin with 4-0 Prolene. Sterile dressing applied. The patient tolerated the procedure well. Job ID: [id number]
--- NOTE | 2019-10-11 16:53 | PQF ---
NEVA HARVEY, KAYY Chau MD [id number] CLINICAL DOCUMENTATION IMPROVEMENT CLARIFICATION FORM: ICD-10 Updated PLEASE DO AN ADDENDUM TO THE PROGRESS NOTE WITH ANY DOCUMENTATION UPDATES OR ADDITIONS AND CARRY THROUGH TO DC SUMMARY. THANK YOU. Date: 10/11/19 ATTN: DR. Manny LUCIO Please exercise your independent, professional judgment in responding to the clarification form. Clinical indicators are provided on the bottom of this form for your review. Please check appropriate box(s): [ x ] Protein Calorie Malnutrition: [ ] Mild [ ] Moderate [ x ] Severe [ ] Other Malnutrition (please specify) __ [ ] Cachexia [ ] Other diagnosis [ ] Unable to determine In addition, please specify: Present on Admission (POA): [ x ] Yes [ ] No [ ] Unable to determine CLINICAL INDICATORS - SIGNS / SYMPTOMS / LABS / RESULTS AND LOCATION IN MR 10/08 RD ASSESSMENT: BMI 19.9, -18% WEIGHT LOSS X 3 MONTHS, MODERATE MUSCLE WASTING TO TEMPORALIS, DORSAL INTEROSSEOUS, TRICEPS MUSCLES; MILD TO MODERATE LOSS OF ORBITAL FAT SUGGESTING SEVERE MALNUTRITION IN THE CONTEXT OF CHRONIC ILLNESS. RISK: ADVANCED AGE (84), DM TYPE 2, PHYSICAL DECONDITIONING (H&P/DANNA) 10/07 TREATMENTS: DIETARY CONSULT 10/08 RECOMMENDED GLUCERNA PRN, MINI BID (RD ASSESSMENT/ 10/08) Moderate Malnutrition (in acute illness) Energy Intake: <75% of estimated energy requirement for > 7 days Weight Loss: 1-2%/1 week; 5%/ 1 month; 7.5%/3 months Other: mild body fat loss; mild muscle mass loss; mild fluid accumulation; Severe Malnutrition (in acute illness) Energy Intake: < 50% of estimated energy requirement for > 5 days Weight Loss: >1-2%/1 week; >5%/1 month; >7.5%/3 months Other: moderate body fat loss; moderate muscle mass loss; moderate- severe fluid accumulation; measurably reduced hat block bench hand strength Moderate Malnutrition (in chronic illness) Energy Intake: <75% of estimated energy requirement for >1 month Weight Loss: 5%/1 month; 7.5%/3 months; 10%/6 months; 20%/1 year Other: mild body fat loss; mild muscle mass loss; mild fluid accumulation Severe Malnutrition (in chronic illness) Energy Intake: <75% of estimated energy requirement for >1 month Weight Loss: >5%/1 month; >7.5%/3 months; >10%/6 months; >20%/1 year Other: severe body fat loss; severe muscle mass loss; severe fluid accumulation ; measurably reduced hat block bench hand strength THANK YOU ! KEN (This form is maintained as a part of the permanent medical record) 2014 [employer] All Rights Reserved MADAN [email or web address] [phone] [email or web address]
[2019-10-11] MEDS ORDERED: Ciprofloxacin 500 MG TAB PO SCH (20:00)
[2019-10-11] MEDS ORDERED: Sulfameth/Trimethoprim DS 800-160mg TAB PO SCH (21:00)
--- NOTE | 2019-10-18 12:04 | PQF ---
NEVA HARVEY RICHARD D MD [id number] [id number]- [id number] CLINICAL DOCUMENTATION CLARIFICATION FORM: POST DISCHARGE Addendum to original discharge summary date: ____ Late entry note date: __ DATE:10/18/2019 ATTN: FUNMI EASLEY MD Please exercise your independent, professional judgment in responding to the clarification form. Clinical indicators are provided on the bottom of this form for your review ___ Final Diagnosis on the Pathology report: Ischemic ulceration (gangrene) and Osteomyelitis ___ Progress Notes indicate: Diabetic right 4th toe infection Based on the pathological findings of (i.e. metastasis to the axillary lymph nodes, primary prostate carcinoma, etc.), is this a confirmed diagnosis for this patient? [ ] Yes, this is a secondary diagnosis for this patient [ ] Other (additional comments): [ ] Unable to determine For continuity of documentation, please document condition throughout progress notes and discharge summary. Thank You. CLINICAL INDICATORS - SIGNS/ SYMPTOMS / LABS / RESULTS AND LOCATION IN MR Ischemic ulceration (gangrene) and Osteomyelitis, Inflammatory changes extend to soft tissue margin -Documented in Pathology report Diabetic right 4th toe infection , previous amputation of the toes 1,2 and 3 with open wound over the proximal interphalangeal joint-Documented in Op note on 09/22 by Funmi Easley MD RISK FACTORS / RESULTS AND LOCATION IN MR Diabetic right 4th toe infection , previous amputation of the toes 1,2 and 3 with open wound over the proximal interphalangeal joint-Documented in Op note on 09/22 by Funmi Easley MD TREATMENTS / RESULTS AND LOCATION IN MR Amputation of right 4th toe through the proximal phalanx with irrigation and primary closure -Documented in Op note on 09/22 by Funmi Easley MD Vancomycin 750 mg IV-Documented in medication snapshot Cefepime 2 gm -Documented in medication snapshot SAP Vascular Surgeon [employer] Winform Viewer (This form is maintained as a part of the permanent medical record) 2014 [employer]. All Rights Reserved [email or web address]
== END 2019-10-11 15:56 | DRG 616 ==
LOC: ERS 10:53 → T4-B 16:58
PROVIDERS: ADMIT Specialist; ATTEND Specialist
PROC: 0Y6V0Z1 Detachment at Right 4th Toe, High, Open Approach (ICD-10-PCS; principal; 2019-10-11)
DX: E11.628 Type 2 diabetes mellitus with other skin complications (principal); E43 Unspecified severe protein-calorie malnutrition; L03.115 Cellulitis of right lower limb; E87.1 Hypo-osmolality and hyponatremia; Z68.1 Body mass index [BMI] 19.9 or less, adult; D63.1 Anemia in chronic kidney disease; I48.91 Unspecified atrial fibrillation; N40.0 Benign prostatic hyperplasia without lower urinary tract symptoms; Z95.0 Presence of cardiac pacemaker; Z88.0 Allergy status to penicillin
CPT/HCPCS: 36415; 36416; 80048; 80053; 80061; 80202; 81003; 83036; 83930; 83935; 84300; 85025; 85652; 86140; 87040; 88305; 88311; 96365; 96367; J0692; J1650; J2704; J3010; J3370; J3490; J7050; S0020

== ENCOUNTER 2019-10-16 19:22 | Inpatient (IN) | payer MEDICARE, MEDICAID ==
[2019-10-16 20:04] LABS: #Basophils 0.1 thou/uL (0.0-0.2); #Eosinphils 0.5 thou/uL (0.0-0.7); #Lymphocytes 1.4 thou/uL (1.20-3.40); #Monocytes 0.8 thou/uL (0.11-0.59); #Neutrophils 5.5 thou/uL (1.40-6.50); %Basophils 0.9 % (0.0-1.0); %Eosinophils 6.1 % (0.0-10.0); %Lymphocytes 16.7 % (21.0-51.0); %Monocytes 9.6 % (0.0-10.0); %Neutrophils 66.7 % (42.0-75.0); Hemoglobin 10.1 g/dL (14.0-18.0); Mean Corpuscular HGB CONC 34.4 g/dL (32.0-36.0); Mean Corpuscular Hemoglobin 31.1 pg (27.0-31.0); Mean Corpuscular Volume 90.3 fL (78.0-98.0); Mean Platelet Volume 6.9 fL (7.4-10.4); Platelet Count 301 thou/uL (130-400); RBC Distribution Width 13.4 % (11.5-14.5); Red Blood Cell (RBC) Count 3.26 mill/uL (4.70-6.10); White Blood Cell (WBC) Count 8.3 thou/uL (4.8-10.8)
[2019-10-16 20:17] LABS: ALT (SGPT) 11 U/L (8-55); AST (SGOT) 28 U/L (5-34); Albumin 3.8 g/dL (3.4-4.8); Alkaline Phosphatase 106 U/L (40-110); Anion Gap 15 mmol/L (10-20); BUN (Urea Nitrogen) 17 mg/dL (8.4-25.7); Bilirubin, Total 0.5 mg/dL (0.2-1.2); Calc. Creatinine Clearance 0 mL/min (70-130); Calcium 8.9 mg/dL (7.8-10.44); Carbon Dioxide 21 mmol/L (23-31); Chloride 87 mmol/L (98-107); Estimated GFR-MDRD 78; Globulin 2.5 g/dL (2.4-3.5); Glucose 143 mg/dL (83-110); Potassium 4.6 mmol/L (3.5-5.1); Protein, Total 6.3 g/dL (5.8-8.1)
[2019-10-16 20:21] LABS: Sodium 118 mmol/L (136-145)
--- NOTE | 2019-10-16 20:28 | RAD ---
RADIOGRAPH CHEST 1 VIEW: DATE: 10/16/2019 HISTORY: 84-year-old male with cough FINDINGS: There is hyperlucency of the lungs, consistent with COPD. There is no evidence of airspace density, p ulmonary edema, or pneumothorax. The lateral costophrenic angles are not effaced. Left subclavian dual lead pacemaker. Multiple old left posterior rib fracture deformities. IMPRESSION: 1) No acute cardiopulmonary findings. 2) emphysema. 3) old left rib fractures. 4) pacemaker
[2019-10-16 22:32] LABS: Bilirubin Negative (Negative); Blood, Urine Negative (Negative); Clarity Clear (Clear); Glucose, Urine (Dipstick) Normal (Negative); Leukocyte Negative Leu/uL (Negative); Nitrite Negative (Negative); Protein, Urine (Dipstick) Negative (Neg-Trace); Urobilinogen Normal mg/dL (Less than 2)
[2019-10-17 00:59] VITALS: BMI 18.3
[2019-10-17 06:30] LABS: Anion Gap 11 mmol/L (10-20); BUN (Urea Nitrogen) 13 mg/dL (8.4-25.7); Calc. Creatinine Clearance 50 mL/min (70-130); Calcium 9.3 mg/dL (7.8-10.44); Carbon Dioxide 24 mmol/L (23-31); Chloride 89 mmol/L (98-107); Estimated GFR-MDRD 89; Glucose 100 mg/dL (83-110); Sodium 120 mmol/L (136-145)
--- NOTE | 2019-10-17 10:26 | HP ---
CHIEF COMPLAINT ON ADMISSION: Hyponatremia. HISTORY OF PRESENT ILLNESS: The patient is an 84-year-old [facility] patient, who was recently hospitalized for diabetic foot ulcer. During that hospitalization, his sodium level was noted low at 123, efforts to raise it barely got it between 125 and 126, but he was stable mentally and able to go back to the [facility] one week prior. However, on routine followup electrolytes, when sodium returned 118, then correction sent him back to the emergency room, where he has been elected to be put into the hospital for correction of his electrolyte. PAST MEDICAL HISTORY: Significant for pacemaker, diabetes type 2 - noncompliant , hypertension, atrial fibrillation, sick sinus syndrome requiring pacemaker, benign enlargement of the prostate and history of pelvic fractures and most recently diabetic ulcers of the foot. PAST SURGICAL HISTORY: Includes right elbow surgery, right hip replacement, pacemaker placement, and amputation of right foot toes. The patient had right 4th toe amputated by Dr. Luis Easley on 10/11/2019 and the toes 1, 2 and 3 open wound this last hospitalization. PAST PSYCHIATRIC HISTORY: Negative. SOCIAL HISTORY: He is . Lives at [facility]. 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 REVIEW OF SYSTEMS: CONSTITUTIONAL: Negative for fatigue, fever, or cough. He has had significant weight loss over time. SKIN: Negative for rash or itching. HEENT: Negative for drainage or pain in eyes, ears, nose, or throat. CHEST: Denies shortness of breath or coughing. CARDIOVASCULAR: Denies palpitations or chest pain. GASTROINTESTINAL: Denies nausea, vomiting, or diarrhea. GENITOURINARY: Denies blood in urine or stool. He is obsessed with constipation. EXTREMITIES: With symmetrical muscular wasting in all extremities. Normal range of motion, however. SKIN: Poor turgor with thinning, but no acute lesions. NEUROLOGIC: Denies any headaches, blurred vision, or trouble with mentation. PHYSICAL EXAMINATION: VITAL SIGNS: At the time of admission was blood pressure 127/49, pulse 75, respirations 14, temperature was 98, and the O2 saturation was 99% on room air. Pain scale 0. GENERAL: This is a cachectic elderly male, alert, oriented, cooperative. HEENT: He is atraumatic. He has sunken temples, sunken eyes. Pupils with diminished reactivity to light at 2 to 3 mm each. Arcus senilis bilaterally. TMs, nares, and pharynx are clear. NECK: Supple. Trachea midline. CHEST: Clear to auscultation. HEART: Regular rate and rhythm. ABDOMEN: Scaphoid, unable to appreciate organomegaly. GENITOURINARY: Normal external male. EXTREMITIES: With symmetrical muscular wasting in all of them with amputations on the right foot. Otherwise, range of motion is adequate. SKIN: Poor turgor, pale. No acute lesions. NEUROLOGIC: Cranial nerves are intact. He is alert and oriented x3 this morning. Cranial nerves are intact. Unable to test gait and cerebellar function at this time. Sensory exam is grossly intact. LABORATORY DATA: On admission shows sodium at admission of 118 and this morning has elevated to 120, potassium 4.0, chloride is 87, CO2 of 21, BUN 17, creatinine 0.92 with a GFR of 78, glucose 143, calcium 8.9. Liver functions unremarkable. TSH is 0.76. Urinalysis is completely unremarkable. WBCs 8.3, hemoglobin 10.1, hematocrit 29.4 with platelets at 301. IMAGING DATA: Chest x-ray shows no acute findings. There is evidence of emphysema and status post pacemaker placement. ASSESSMENT: 1. Hyponatremia - severe. Acute on Chronic 2. Anemia. 3. Diabetes with history of noncompliance. 4. Status post right foot toe amputations due to diabetic ulcers. PLAN: Will be IV normal saline. Nephrology consult to help delineate the source of the hyponatremia and correct it. We will also do serial stool checks for blood and serially re-evaluate the patient. Job ID: [id number] [facility]
[2019-10-17] MEDS: Sodium Chloride 0.9% 1,000 ML IV SCH ×2 (13:47→21:55)
[2019-10-17] MEDS: metFORMIN 500 MG TAB PO SCH (17:55)
--- NOTE | 2019-10-17 20:10 | CON ---
DATE OF CONSULTATION: CONSULTING PHYSICIAN: Humble Denny MD REQUESTING PHYSICIAN: Dr. Espinal. REASON FOR CONSULTATION: Acute on chronic hyponatremia. IMPRESSION: 1. Acute on chronic hyponatremia. 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 2. Possible obstructive uropathy in the context of benign prostatic hypertrophy. PLAN: 1. Increased osmolar intake in the way of increased animal meat intake. 2. The patient currently on IV fluids; however, when patient reaches his baseline SIADH, we will likely discontinue IV fluid and possible use of anti-ADH medication with conservative management with increased nutritional iron intake in the way of animal meat is my suffice. 3. Bladder scan, this patient needs for significant urinary retention. We will recommend Guajardo catheter at least overnight. 4. Further management will be dependent on the clinical course. HISTORY OF PRESENT ILLNESS: History is that of 84-year-old gentleman with a known history of chronic hyponatremia, managed recently and sent back to long-term with baseline hyponatremia of 125. The patient re-presented because of worsening hyponatremia in the context of sodium of 118. The patient claims to be drinking quite a bit of water. Denies any use of diuretics. As a result of this, decision has been taken to involve Renal in the management of this case. Clinical evaluation in the way of urine chemistry, I suggestive of poor osmolar intake plus or minus a baseline syndrome of inappropriate ADH secretion. PAST MEDICAL HISTORY: Significant for type 2 diabetes, hypertension, atrial fibrillation, sick sinus syndrome, and BPH. MEDICATIONS: Reviewed, as documented on ideasoft. ALLERGIES: NO KNOWN DRUG ALLERGIES. SOCIAL HISTORY: No alcohol. No tobacco. No illicit drug use. 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 FAMILY HISTORY: Not significantly related to present illness. REVIEW OF SYSTEMS: As documented in the body of history. All other systems were reviewed and found not to be significantly related to present illness. PHYSICAL EXAMINATION: GENERAL: The patient was found not to be in any obvious distress. VITAL SIGNS: Noted with the following vital signs; afebrile, temperature 97.7, pulse 61, respiratory rate of 20, O2 saturation of 100% with blood pressure of 127/56. HEENT: Unremarkable. CARDIOVASCULAR SYSTEM: First and second heart sounds were heard. RESPIRATORY SYSTEM: Clear to auscultation. DIGESTIVE SYSTEM: Revealed a benign abdomen. Positive bowel sounds. EXTREMITIES: No peripheral edema. SKIN: No new gross rash. LYMPHATICS: No peripheral lymphadenopathy. LABORATORY INVESTIGATION: Significant for sodium of 118 on presentation. Urine chemistry showed urine osmolality of 277 with urine sodium of 64. In summary, an 84-year-old gentleman with a known history of chronic hyponatremia, who presented with hyponatremia. Thank you for this consultation. We will follow with you. Job ID: [id number]
[2019-10-17] MEDS ORDERED: Terazosin HCl 1 MG CAP PO SCH (21:00)
[2019-10-17] MEDS ORDERED: Carvedilol 6.25 MG TAB PO SCH (21:00)
[2019-10-17] MEDS: Sulfameth/Trimethoprim DS 800-160mg TAB PO SCH (21:52)
[2019-10-17] MEDS: Melatonin 3 MG TAB PO SCH (21:52)
[2019-10-17] MEDS: rOPINIRole HCl 1 MG TAB PO SCH (21:52)
[2019-10-17] MEDS: Famotidine 20 MG TAB PO SCH (21:52)
[2019-10-17] MEDS: Apixaban 2.5 MG TAB PO SCH (21:54)
[2019-10-17] MEDS: Ciprofloxacin 500 MG TAB PO SCH (21:54)
[2019-10-17] MEDS: Docusate Calcium (SURFAK) 240 MG CAP PO SCH (21:55)
[2019-10-17] MEDS: Tamsulosin HCl 0.4 MG CAP PO SCH (22:48)
[2019-10-18 05:21] LABS: #Basophils 0.1 thou/uL (0.0-0.2); #Eosinphils 0.5 thou/uL (0.0-0.7); #Lymphocytes 1.3 thou/uL (1.20-3.40); #Monocytes 0.7 thou/uL (0.11-0.59); #Neutrophils 4.4 thou/uL (1.40-6.50); %Basophils 0.8 % (0.0-1.0); %Eosinophils 7.6 % (0.0-10.0); %Lymphocytes 17.8 % (21.0-51.0); %Monocytes 10.1 % (0.0-10.0); %Neutrophils 63.7 % (42.0-75.0); Hemoglobin 9.2 g/dL (14.0-18.0); Mean Corpuscular HGB CONC 34.8 g/dL (32.0-36.0); Mean Corpuscular Hemoglobin 31.6 pg (27.0-31.0); Mean Corpuscular Volume 90.6 fL (78.0-98.0); Mean Platelet Volume 6.7 fL (7.4-10.4); Platelet Count 259 thou/uL (130-400); RBC Distribution Width 13.4 % (11.5-14.5); Red Blood Cell (RBC) Count 2.92 mill/uL (4.70-6.10)
[2019-10-18 05:47] LABS: Anion Gap 14 mmol/L (10-20); BUN (Urea Nitrogen) 17 mg/dL (8.4-25.7); Calc. Creatinine Clearance 56 mL/min (70-130); Calcium 8.7 mg/dL (7.8-10.44); Carbon Dioxide 19 mmol/L (23-31); Chloride 94 mmol/L (98-107); Estimated GFR-MDRD Greater than 90; Glucose 107 mg/dL (83-110); Iron 30 ug/dL (65-175); Iron Binding Capacity, Total 205 mcg/dL (261-462); Potassium 4.3 mmol/L (3.5-5.1); Sodium 123 mmol/L (136-145)
[2019-10-18] MEDS: Ciprofloxacin 500 MG TAB PO SCH ×2 (06:01→21:13)
[2019-10-18] MEDS: Sodium Chloride 0.9% 1,000 ML IV SCH ×2 (06:06→17:28)
[2019-10-18] MEDS ORDERED: Tamsulosin HCl 0.4 MG CAP PO SCH (08:00)
[2019-10-18] MEDS: metFORMIN 500 MG TAB PO SCH ×2 (09:20→17:27)
[2019-10-18] MEDS: Famotidine 20 MG TAB PO SCH ×2 (09:37→21:12)
[2019-10-18] MEDS: Tamsulosin HCl 0.4 MG CAP PO SCH ×2 (09:37→21:14)
[2019-10-18] MEDS: Apixaban 2.5 MG TAB PO SCH ×2 (09:38→21:13)
[2019-10-18] MEDS: Carvedilol 3.125 MG TAB PO SCH ×2 (09:39→21:13)
[2019-10-18] MEDS: Docusate Calcium (SURFAK) 240 MG CAP PO SCH ×2 (09:40→21:13)
[2019-10-18] MEDS: Ferrous Sulfate 325 MG TAB PO SCH ×2 (09:42→17:27)
[2019-10-18] MEDS: Sulfameth/Trimethoprim DS 800-160mg TAB PO SCH ×2 (09:43→21:13)
[2019-10-18] MEDS: Multivit, Therapeutic 1 TAB PO SCH (09:43)
[2019-10-18] MEDS: Polyethylene Glycol 3350 17 GM Packet PO SCH (09:44)
--- NOTE | 2019-10-18 16:54 | PRG ---
DATE OF SERVICE: 10/18/2019 SUBJECTIVE: The patient is noted with the following vital signs. OBJECTIVE: VITAL SIGNS: Afebrile. Temperature 97.5, pulse 60, respiratory rate of 20, O2 saturation of 98% with a blood pressure of 90/54. HEENT: Unremarkable. CARDIOVASCULAR: First and second heart sounds were heard. RESPIRATORY SYSTEM: Clear to auscultation. DIGESTIVE SYSTEM: Revealed a benign abdomen. EXTREMITIES: No peripheral edema. SKIN: No new gross rash. LYMPHATICS: No peripheral lymphadenopathy. LABORATORY INVESTIGATION: Significant for sodium of 123. IMPRESSION: 1. Hyponatremia likely in the context of poor osmolar intake, though cannot completely rule out a baseline SIADH, which I suspect in this patient. 2. Obstructive uropathy, likely in the context of benign prostatic hyperplasia with urinary retention. 3. Anemia. PLAN: 1. If the patient likely needs a Guajardo catheterization however, the patient seems to be very resistant to this idea, may benefit from urologic consultation. 2. Continue current renal supportive measures increased animal meat intake . 3. Further management to be dependent on clinical course. 4. Discontinue terazosin, given the low blood pressure in this patient. Job ID: [id number]
--- NOTE | 2019-10-18 18:10 | PQF ---
DATE: 10-18-19 ATTN: DR. KAYY LUCIO Please exercise your independent, professional judgment in responding to the clarification form. Clinical indicators are provided on the bottom of this form for your review Please check appropriate box(s): [ x ] I (concur) with the Nurses Assessment as stated below. [ x ] I (concur) with the Wound Care findings as stated below. [ ] Pressure Ulcer: [ ] Location: POA: [ ] Yes [ ] No[ ] Unable to determine Stage (I to IV): (Left Right Bilateral N/A___ __) [ ] No pressure ulcer diagnosis [ ] Deep tissue injury [ ] Other diagnosis [ ] Unable to determine In addition, please specify: Present on Admission (POA): [ x ] Yes [ ] No [ ] Unable to determine For continuity of documentation, please document condition throughout progress notes and discharge summary. Thank You. CLINICAL INDICATORS - SIGNS / SYMPTOMS / LABS / RESULTS AND LOCATION IN MR: NURSE ASSESSMENT 10-17-19: PRESSURE ULCER L HEEL, STAGE 3 WOUND CARE CONSULT: 10-17-19: DIABETIC ULCER L HEEL, FULL THICKNESS RISK FACTORS / RESULTS AND LOCATION IN MR: H&P: 10-17-19: DIABETES-NONCOMPLIANT, DIABETIC ULCERS OF THE FOOT, S/P RIGHT FOOT TOE AMPUTATIONS TREATMENTS / RESULTS AND LOCATION IN MR: WOUND CARE CONSULT 10-17-19: DRESSING CHANGES TO L HEEL AFTER CLEANSING PRESSURE ULCER STAGES Stage I: Erythema Stage II: Partial thickness Stage III: Full thickness Stage IV: Necrosis to muscle/bone (This form is maintained as a part of the permanent medical record) 2015 [employer]. All Rights Reserved [email or web address]
[2019-10-18] MEDS: rOPINIRole HCl 1 MG TAB PO SCH (21:13)
[2019-10-18] MEDS: Melatonin 3 MG TAB PO SCH (21:13)
[2019-10-19] MEDS: Sodium Chloride 0.9% 1,000 ML IV SCH ×3 (03:50→22:37)
[2019-10-19] MEDS: Ciprofloxacin 500 MG TAB PO SCH ×2 (05:37→20:20)
[2019-10-19 06:29] LABS: Anion Gap 15 mmol/L (10-20); BUN (Urea Nitrogen) 14 mg/dL (8.4-25.7); Calc. Creatinine Clearance 54 mL/min (70-130); Calcium 8.5 mg/dL (7.8-10.44); Carbon Dioxide 18 mmol/L (23-31); Chloride 93 mmol/L (98-107); Estimated GFR-MDRD Greater than 90; Glucose 87 mg/dL (83-110); Potassium 4.2 mmol/L (3.5-5.1); Sodium 122 mmol/L (136-145)
[2019-10-19] MEDS: metFORMIN 500 MG TAB PO SCH ×2 (10:06→17:14)
[2019-10-19] MEDS: Famotidine 20 MG TAB PO SCH ×2 (10:06→20:20)
[2019-10-19] MEDS: Docusate Calcium (SURFAK) 240 MG CAP PO SCH ×2 (10:06→20:20)
[2019-10-19] MEDS: Ferrous Sulfate 325 MG TAB PO SCH ×2 (10:06→17:14)
[2019-10-19] MEDS: Multivit, Therapeutic 1 TAB PO SCH (10:07)
[2019-10-19] MEDS: Apixaban 2.5 MG TAB PO SCH ×2 (10:07→20:20)
[2019-10-19] MEDS: Tamsulosin HCl 0.4 MG CAP PO SCH ×2 (10:07→20:20)
[2019-10-19] MEDS: Sulfameth/Trimethoprim DS 800-160mg TAB PO SCH ×2 (10:07→20:20)
[2019-10-19] MEDS: Carvedilol 3.125 MG TAB PO SCH ×2 (10:07→20:21)
[2019-10-19] MEDS: Polyethylene Glycol 3350 17 GM Packet PO SCH (10:08)
[2019-10-19 13:57] LABS: #Basophils 0.1 thou/uL (0.0-0.2); #Eosinphils 0.7 thou/uL (0.0-0.7); #Lymphocytes 1.3 thou/uL (1.20-3.40); #Monocytes 0.7 thou/uL (0.11-0.59); #Neutrophils 5.7 thou/uL (1.40-6.50); %Basophils 1.1 % (0.0-1.0); %Eosinophils 8.4 % (0.0-10.0); %Lymphocytes 14.9 % (21.0-51.0); %Monocytes 8.4 % (0.0-10.0); %Neutrophils 67.2 % (42.0-75.0); Hemoglobin 9.6 g/dL (14.0-18.0); Mean Corpuscular HGB CONC 34.5 g/dL (32.0-36.0); Mean Corpuscular Hemoglobin 31.5 pg (27.0-31.0); Mean Corpuscular Volume 91.3 fL (78.0-98.0); Mean Platelet Volume 6.8 fL (7.4-10.4); Platelet Count 275 thou/uL (130-400); RBC Distribution Width 13.6 % (11.5-14.5); Red Blood Cell (RBC) Count 3.06 mill/uL (4.70-6.10); White Blood Cell (WBC) Count 8.5 thou/uL (4.8-10.8)
--- NOTE | 2019-10-19 16:49 | CON ---
DATE OF CONSULTATION: 10/19/2019 CHIEF COMPLAINT: Anemia. HISTORY OF PRESENT ILLNESS: Mr. Lynch is an 84-year-old man who was admitted with hyponatremia. He had blood work at the senior care that showed severe worsening of his hyponatremia, again he is readmitted for that. Nephrology is evaluating the hyponatremia. While he was here, he was noted to have anemia and GI was consulted to evaluate for a GI source. The patient has had no abdominal pain. No nausea or vomiting. No visible blood in the stool. He has had chronic constipation over the last few years. He can have a bowel movement every couple of days or so. He took MiraLAX, but after adding additional stimulant laxatives to the MiraLAX, he developed diarrhea with that. He has had no red blood in the stool or black stools. He had a fall with pelvic fracture and has had complications from his diabetes and immobility. PAST MEDICAL HISTORY: Diabetes mellitus type 2, hypertension, atrial fibrillation, BPH, and diabetic foot ulcer. PAST SURGICAL HISTORY: Pacemaker placement, hip replacement, toe amputations, and elbow surgery. FAMILY HISTORY: Negative for GI malignancy. SOCIAL HISTORY: No alcohol, tobacco, or drugs. ALLERGIES: AMOXICILLIN. CURRENT INPATIENT MEDICATIONS: Include: 1. Eliquis. 2. Carvedilol. 3. Ciprofloxacin. 4. Famotidine. 5. Metformin. 6. Ferrous sulfate. 7. Melatonin. 8. Multiple vitamin. 9. MiraLAX. 10. Ropinirole. 11. Tamsulosin. 12. Bactrim. REVIEW OF SYSTEMS: Negative x10 systems reviewed except as stated in history of present illness. He does report a 35-pound weight loss over the last year or so. PHYSICAL EXAMINATION: VITAL SIGNS: Temperature 98, pulse 61, and blood pressure 134/79. GENERAL: He is in no acute distress. Alert and oriented x3. HEENT: Eyes have no scleral icterus. Oropharynx is clear without lesions. No cervical or supraclavicular lymphadenopathy. LUNGS: Clear to auscultation bilaterally. HEART: Regular rate and rhythm without murmur. ABDOMEN: Soft, nontender, and nondistended. Bowel sounds are present. EXTREMITIES: No lower extremity edema. RECTAL: Reveals soft and brown stool in the rectal vault. LABORATORY DATA: White blood cell count 8.5, hemoglobin 9.6, MCV 91.3, and platelets 275. His hemoglobin has been in the 9 to 10 range going back to 2014. Creatinine 0.76. Iron 30, TIBC 205. Sodium 122, potassium 4.2, chloride 93, CO2 of 18, BUN 14, and creatinine 0.76. IMPRESSION: 1. Anemia of chronic disease. He has had normocytic anemia for years, which appears stable. He has been on anticoagulation without any sign of overt bleeding. His iron and TIBC are low. I will check a ferritin level to evaluate his iron stores. 2. Hyponatremia. 3. Poor mobility, status post pelvic fractures with inability to move his legs. He is wheelchair bound with that. He has been requiring toe amputations and has open wound. He has been nursing-home bound related to this, however, is awake, alert, and communicative. 4. Weight loss. RECOMMENDATIONS: 1. Consider endoscopy if the patient develops significant overt bleeding. 2. Check ferritin. 3. Elective nonurgent endoscopy is not being performed due to COVID-19 pandemic at this time. However, I would not expect this would significantly change control coordinator in the short term in this patient. 4. I will continue to follow. Job ID: [id number]
[2019-10-19 17:48] LABS: Bacteria/HPF None Seen HPF (None Seen); Bilirubin Negative (Negative); Blood, Urine Negative (Negative); Clarity Clear (Clear); Glucose, Urine (Dipstick) Normal (Negative); Leukocyte Negative Leu/uL (Negative); Nitrite Negative (Negative); Protein, Urine (Dipstick) Negative (Neg-Trace); RBC/HPF 0-3 HPF (0-3); Squamous Epithelial 0-3 HPF (0-3); Urobilinogen Normal mg/dL (Less than 2); WBC/HPF 0-3 HPF (0-3)
--- NOTE | 2019-10-19 18:58 | PRG ---
DATE OF SERVICE: 10/19/2019 SUBJECTIVE: The patient is seen and examined with no new complaint today, noted with the following vital signs. OBJECTIVE: VITAL SIGNS: Afebrile, temperature 98, pulse 60, respiratory rate of 16, O2 saturation are 99% with blood pressure 107/55. HEENT: Unremarkable. CARDIOVASCULAR SYSTEM: First and second heart sounds were heard. RESPIRATORY SYSTEM: Clear to auscultation. DIGESTIVE SYSTEM: Revealed a benign abdomen with positive bowel sounds. EXTREMITIES: No peripheral edema. SKIN: No new gross rash. LYMPHATICS: No peripheral lymphadenopathy. LABORATORY INVESTIGATION: Showed a hemoglobin of 9.6. Chemistry showed a sodium of 122, bicarb of 18 with a creatinine of 0.76. IMPRESSION: 1. 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 2. Anemia. 3. Obstructive uropathy, likely in the context of BPH. PLAN: 1. The patient is resistant to the idea of Guajardo catheterization. 2. Urology consultation pending. Hopefully, the patient may benefit from additional medication to Flomax. 3. We will repeat this patient's urine chemistry to rule out SIADH or confirm SIADH and use medication accordingly. Therefore, we will send urine sodium and urine . 4. Continue increased protein intake. 5. Further management to be dependent on the clinical course. Job ID: [id number]
[2019-10-19] MEDS: Melatonin 3 MG TAB PO SCH (20:20)
[2019-10-19] MEDS: rOPINIRole HCl 1 MG TAB PO SCH (20:20)
[2019-10-19] MEDS ORDERED: Terazosin HCl 1 MG CAP PO SCH (21:00)
--- NOTE | 2019-10-19 21:13 | CON ---
DATE OF CONSULTATION: 10/19/2019 REASON FOR CONSULTATION: 1. Urinary retention. 2. Family history of prostate cancer. 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 He has acute on chronic hyponatremia in addition to chronic anemia. The patient in this hospitalization was found to have difficulties with voiding, has a long history of BPH, was previously cared for by the young brother's practice here in [facility], but has not seen a urologist in several years. The patient reports he was not on any medications at home. On this admission, he has been started on Flomax, but still has great difficulty in emptying his bladder. Gasper Lynch's father passed from prostate cancer at around age 59. PAST MEDICAL HISTORY: 1. Type 2 diabetes mellitus. 2. Hyponatremia at previous hospitalization down to 125 and on this visit down to 118. 3. Hypertension. 4. Atrial fibrillation. 5. Sick sinus syndrome. 6. BPH. No prior history of prostate surgery. MEDICATIONS: Reviewed and as on [employer]. Current medications include tamsulosin b.i.d. ALLERGIES: NO KNOWN DRUG ALLERGIES. SOCIAL HISTORY: The patient does not consume or use alcohol or tobacco products. No drug use history. 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 FAMILY MEDICAL HISTORY: Positive for prostate cancer in the patient's father. REVIEW OF SYSTEMS: HEAD, EYES, EARS, NOSE, AND THROAT: Negative. NEUROLOGIC: No issues. PULMONARY: No complaints of shortness of breath or respiratory symptoms. CARDIAC: Negative except for atrial fibrillation. GASTROINTESTINAL: No complaints. 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 GENITOURINARY: The patient reports no past history of kidney stones. Does have a positive family history of prostate cancer. He is not aware of his PSA history. He does report high-level obstructive voiding symptoms for a number of years. Review of systems, otherwise negative x12 systems. PHYSICAL EXAMINATION: GENERAL: This is a pleasant white male, who has difficulty with ambulation in part due to this age, but also in part due to recent amputations of toes. He appears slightly younger than his stated age of 84 years. He would be classified as elderly frail to my exam. VITAL SIGNS: Temperature is 98 degrees Fahrenheit, pulse 60, respirations 16, O2 saturation on room air is 99%, and blood pressure is 107/55. HEAD, EYES, EARS, NOSE, AND THROAT: Extraocular movements are intact. Sclerae anicteric. Oropharynx is clear. NECK: Supple. LUNGS: Clear to auscultation bilaterally. Chest wall is relatively thin with trend towards cachexia. CARDIAC: Irregularly irregular rhythm. ABDOMEN: Soft and nontender. GENITOURINARY: Phallus is circumcised and is without lesions. Scrotum appears benign. Testes appear atrophic. Palpation of inguinal canals finds no evidence of hernia. Digital rectal examination is performed, finds a prostate gland that palpates to about 35 g, it is minimally tender. This would be present with chronic prostatitis. There are no palpable masses on the patient's prostate gland. LABORATORY STUDIES: The patient's white count is 8500, hemoglobin is 9.6 with hematocrit of 27.9. The mean corpuscular volume is normal at 91.3. The patient has no significant left shift. Serum chemistries showed the patient's sodium at 122 today, potassium at 4.2, chloride at 93, and carbon dioxide at 18. He has not had a PSA performed in this hospital system ever before. RADIOLOGIC STUDIES: The patient underwent only a chest x-ray on this hospitalization and on prior hospitalizations, was seen to have urine collecting in his bladder. ASSESSMENT AND PLAN: 1. Obstructive prostate features. I recommend maximal medical therapy in this patient, which include b.i.d. Flomax, which he is tolerating. In addition, we should start finasteride given size of his prostate gland, which is in range of which would respond to finasteride use. In addition, I believe antibiotic coverage is appropriate based on physical exam findings suggestive of chronic prostatitis. 2. Male health issues. Generally, an 84-year-old man we do not check PSAs unless there are relevant to the diagnosis of obstruction. This patient does have obstruction. At the present time, I would recommend deferring PSA testing until the patient given adequate course of antibiotic therapy first. The concurrent use of finasteride may change the PSA value, but this patient's case becoming unobstructed, it is more important than knowing the specific PSA details. 3. Urinary retention. I catheterized the patient during the course of examination today for a residual of 1400 mL, which defines urinary retention. We will start him on intermittent catheterization. I spent a great deal of time with the patient today, instruct him in intermittent catheterization methods to do it in motivational factors. He does not desire an indwelling catheter, having had one before and is amenable to doing intermittent catheterization 5 times per day. My office can set him up with a catheter supply if he is to be let home from his residential, otherwise supply to be provided by his nursing facility. I believe a 14-English Vinyl catheter used 5 times per day is indicated in this patient's case. Catheterization less than 5 times per day is not recommended and increases the risk of infection. 4. Prostate cancer concerns. The patient does have a primary first degree relative with prostate cancer. However, there are no clinical findings to suggest that he has cancer other than the obstruction. At the present time, I would recommend deferring on further evaluations and workup for that to clinic. The patient may follow up in my office at [facility], [address] [place] [address] for further evaluation and treatment. TIME SPENT: Over 70 minutes of initial evaluation and assessment time was spent in the care of this patient, over of which was in face to face evaluation, or in coordination of care, or in communication with the patient's family regarding care, exclusive of any procedures performed, [id number]. Job ID: [id number] MTDD
[2019-10-20] MEDS: Ciprofloxacin 500 MG TAB PO SCH ×2 (05:34→20:08)
[2019-10-20 05:41] LABS: #Basophils 0.1 thou/uL (0.0-0.2); #Eosinphils 0.7 thou/uL (0.0-0.7); #Lymphocytes 1.5 thou/uL (1.20-3.40); #Monocytes 0.6 thou/uL (0.11-0.59); #Neutrophils 4.4 thou/uL (1.40-6.50); %Basophils 1.4 % (0.0-1.0); %Eosinophils 10.2 % (0.0-10.0); %Lymphocytes 20.4 % (21.0-51.0); %Monocytes 8.5 % (0.0-10.0); %Neutrophils 59.6 % (42.0-75.0); Hemoglobin 9.2 g/dL (14.0-18.0); Mean Corpuscular HGB CONC 34.4 g/dL (32.0-36.0); Mean Corpuscular Hemoglobin 31.4 pg (27.0-31.0); Mean Corpuscular Volume 91.4 fL (78.0-98.0); Mean Platelet Volume 6.8 fL (7.4-10.4); Platelet Count 265 thou/uL (130-400); RBC Distribution Width 13.5 % (11.5-14.5); Red Blood Cell (RBC) Count 2.93 mill/uL (4.70-6.10); White Blood Cell (WBC) Count 7.3 thou/uL (4.8-10.8)
[2019-10-20 05:59] LABS: Anion Gap 11 mmol/L (10-20); BUN (Urea Nitrogen) 12 mg/dL (8.4-25.7); Calc. Creatinine Clearance 54 mL/min (70-130); Calcium 8.4 mg/dL (7.8-10.44); Carbon Dioxide 20 mmol/L (23-31); Chloride 90 mmol/L (98-107); Estimated GFR-MDRD Greater than 90; Glucose 68 mg/dL (83-110); Potassium 4.4 mmol/L (3.5-5.1)
[2019-10-20 06:07] LABS: Sodium 117 mmol/L (136-145)
[2019-10-20] MEDS: Carvedilol 3.125 MG TAB PO SCH ×3 (10:03→20:09)
[2019-10-20] MEDS: Famotidine 20 MG TAB PO SCH ×2 (10:03→20:08)
[2019-10-20] MEDS: Sulfameth/Trimethoprim DS 800-160mg TAB PO SCH ×2 (10:03→20:08)
[2019-10-20] MEDS: Apixaban 2.5 MG TAB PO SCH ×2 (10:03→20:08)
[2019-10-20] MEDS: Multivit, Therapeutic 1 TAB PO SCH (10:03)
[2019-10-20] MEDS: Finasteride 5 MG TAB PO SCH (10:03)
[2019-10-20] MEDS: metFORMIN 500 MG TAB PO SCH ×2 (10:03→17:38)
[2019-10-20] MEDS: Ferrous Sulfate 325 MG TAB PO SCH ×2 (10:03→17:38)
[2019-10-20] MEDS: Docusate Calcium (SURFAK) 240 MG CAP PO SCH ×2 (10:03→20:08)
[2019-10-20] MEDS: Tamsulosin HCl 0.4 MG CAP PO SCH ×2 (10:03→20:08)
[2019-10-20] MEDS: Polyethylene Glycol 3350 17 GM Packet PO SCH (10:04)
[2019-10-20] MEDS: Sodium Chloride 0.9% 1,000 ML IV SCH (10:16)
[2019-10-20] MEDS ORDERED: Tolvaptan 15 MG TAB PO SCH (11:45)
--- NOTE | 2019-10-20 14:36 | PRG ---
DATE OF SERVICE: 10/20/2019 SUBJECTIVE: Mr. Lynch has had no overt GI bleeding. No abdominal pain or nausea or vomiting. OBJECTIVE: VITAL SIGNS: Temperature is 97.8, pulse is 59, blood pressure is 112/64. GENERAL: He is in no acute distress. Awake and alert and interactive. LUNGS: Clear to auscultation bilaterally. HEART: Regular rate and rhythm. ABDOMEN: Soft, nontender, and nondistended. Bowel sounds are present. EXTREMITIES: No lower extremity edema. LABORATORY DATA: Hemoglobin is stable at 9.2. Ferritin is 242. IMPRESSION: 1. Anemia of chronic disease without evidence of significant gastrointestinal bleed or iron deficiency. His iron and TIBC are low with a ferritin over 200. No need for urgent endoscopy at this point. 2. Urinary retention. 3. Atrial fibrillation, on anticoagulation. 4. Poor mobility and wound healing, residential bound. RECOMMENDATIONS: I will sign off for now, please call if the patient has signs of significant overt GI bleeding. Job ID: [id number]
[2019-10-20 15:24] LABS: Sodium 117 mmol/L (136-145)
--- NOTE | 2019-10-20 19:49 | PRG ---
DATE OF SERVICE: 10/20/2019 SUBJECTIVE: The patient was seen and examined. Noted with the following vital signs. OBJECTIVE: VITAL SIGNS: Afebrile, temperature 97.5, pulse 60, respiratory rate of 18, and O2 saturation of 100% with blood pressure 123/67. HEENT: Unremarkable. CARDIOVASCULAR SYSTEM: First and second heart sounds were heard. RESPIRATORY: Clear to auscultation. DIGESTIVE: Revealed a benign abdomen. EXTREMITIES: No peripheral edema. SKIN: No new gross rash. LYMPHATICS: No peripheral lymphadenopathy. LABORATORY INVESTIGATION: Significant for sodium of 117. Urine chemistry showed a urine osmolality of 478 and urine sodium of 87. IMPRESSION: 1. Hyponatremia disease consistent with syndrome of inappropriate antidiuretic hormone secretion given the urine chemistry. 2. Obstructive uropathy in the context of benign prostatic hyperplasia. PLAN: 1. The patient to be started on anti-ADH medication. 2. Follow urine sodium closely. 3. Hopefully, the patient will respond very well to tolvaptan. Otherwise, the patient might become a candidate for hypertonic saline. 4. Further management to be dependent on the clinical course. Job ID: [id number]
[2019-10-20] MEDS: rOPINIRole HCl 1 MG TAB PO SCH (20:08)
[2019-10-20] MEDS: Melatonin 3 MG TAB PO SCH (20:09)
[2019-10-20 21:10] LABS: Sodium 116 mmol/L (136-145)
[2019-10-21 04:07] LABS: #Basophils 0.1 thou/uL (0.0-0.2); #Eosinphils 0.7 thou/uL (0.0-0.7); #Lymphocytes 1.4 thou/uL (1.20-3.40); #Monocytes 0.6 thou/uL (0.11-0.59); #Neutrophils 3.8 thou/uL (1.40-6.50); %Basophils 1.1 % (0.0-1.0); %Eosinophils 10.4 % (0.0-10.0); %Lymphocytes 20.9 % (21.0-51.0); %Monocytes 9.7 % (0.0-10.0); %Neutrophils 57.8 % (42.0-75.0); Hemoglobin 9.3 g/dL (14.0-18.0); Mean Corpuscular HGB CONC 34.5 g/dL (32.0-36.0); Mean Corpuscular Hemoglobin 30.9 pg (27.0-31.0); Mean Corpuscular Volume 89.7 fL (78.0-98.0); Mean Platelet Volume 6.4 fL (7.4-10.4); Platelet Count 258 thou/uL (130-400); RBC Distribution Width 13.4 % (11.5-14.5); Red Blood Cell (RBC) Count 3.02 mill/uL (4.70-6.10); White Blood Cell (WBC) Count 6.5 thou/uL (4.8-10.8)
[2019-10-21 04:27] LABS: Anion Gap 11 mmol/L (10-20); BUN (Urea Nitrogen) 11 mg/dL (8.4-25.7); Calc. Creatinine Clearance 53 mL/min (70-130); Calcium 8.3 mg/dL (7.8-10.44); Carbon Dioxide 20 mmol/L (23-31); Chloride 89 mmol/L (98-107); Estimated GFR-MDRD Greater than 90; Glucose 76 mg/dL (83-110); Potassium 4.3 mmol/L (3.5-5.1)
[2019-10-21 04:31] LABS: Sodium 116 mmol/L (136-145)
[2019-10-21] MEDS: Polyethylene Glycol OPTH DROP 15 ML BOT EA EYE PRN (05:28)
[2019-10-21] MEDS: Ciprofloxacin 500 MG TAB PO SCH ×2 (06:50→21:58)
[2019-10-21] MEDS: Famotidine 20 MG TAB PO SCH ×2 (08:20→21:58)
[2019-10-21] MEDS: Multivit, Therapeutic 1 TAB PO SCH (08:20)
[2019-10-21] MEDS: metFORMIN 500 MG TAB PO SCH ×2 (08:20→17:09)
[2019-10-21] MEDS: Apixaban 2.5 MG TAB PO SCH ×2 (08:20→21:58)
[2019-10-21] MEDS: Sulfameth/Trimethoprim DS 800-160mg TAB PO SCH ×2 (08:20→21:58)
[2019-10-21] MEDS: Docusate Calcium (SURFAK) 240 MG CAP PO SCH ×2 (08:20→21:59)
[2019-10-21] MEDS: Tamsulosin HCl 0.4 MG CAP PO SCH ×2 (08:21→21:59)
[2019-10-21] MEDS: Ferrous Sulfate 325 MG TAB PO SCH ×2 (08:21→17:09)
[2019-10-21] MEDS: Polyethylene Glycol 3350 17 GM Packet PO SCH (08:21)
[2019-10-21] MEDS: Carvedilol 3.125 MG TAB PO SCH ×2 (08:21→21:58)
[2019-10-21] MEDS: Finasteride 5 MG TAB PO SCH (08:21)
[2019-10-21] MEDS ORDERED: Tolvaptan 15 MG TAB PO SCH (09:00)
[2019-10-21] MEDS: Sodium Chloride 256 MEQ in Sterile Water Injection 936 ML IV SCH (10:54)
[2019-10-21 13:39] LABS: Sodium 117 mmol/L (136-145)
--- NOTE | 2019-10-21 15:24 | PQF ---
Date: 10-21-19 ATTN: DR. ERICA LUCIO Please exercise your independent, professional judgment in responding to the clarification form. Clinical indicators are provided on the bottom of this form for your review Please check appropriate box(s): [ x ] Protein Calorie Malnutrition: [ ] Mild [ ] Moderate [ x ] Severe [ ] Cachexia [ ] Other diagnosis [ ] Unable to determine In addition, please specify: Present on Admission (POA): [ x ] Yes [ ] No [ ] Unable to determine CLINICAL INDICATORS - SIGNS / SYMPTOMS / LABS / RESULTS AND LOCATION IN MR: NUTRITION CONSULT 10-17-19: -19% wt loss x 3 months per EMR; moderate muscle wasting to temporalis, dorsal, interosseous, tricep muscles; mild to moderate loss or orbital fat suggesting severe malnutrition in the context of chronic illness BMI: 10-21-19: 18.3 RISK FACTORS / RESULTS AND LOCATION IN MR: NUTRITION CONSULT 10-17-19: Reported recent UBW 160 lb. ; now 121, T2D noncompliance, HTN, diabetic ulcers of foot, amputation of right foot toes, right 4th toe on 10/10 and toes 1,2,3 open wound TREATMENT / RESULTS AND LOCATION IN MR: BODY COVERER CONSULT 10-17-19: 1. Recommend Low sodium/1800 Consistent Carbohydrate diet. 2. Consider fluid restriction PRN. 3. Recommend MINI BID for wound healing. 4. Recommend Glucerna Shakes PRN for meal trays less than Moderate Malnutrition (in acute illness) Energy Intake: <75% of estimated energy requirement for > 7 days Weight Loss: 1-2%/1 week; 5%/ 1 month; 7.5%/3 months Other: mild body fat loss; mild muscle mass loss; mild fluid accumulation; Severe Malnutrition (in acute illness) Energy Intake: < 50% of estimated energy requirement for > 5 days Weight Loss: >1-2%/1 week; >5%/1 month; >7.5%/3 months Other: moderate body fat loss; moderate muscle mass loss; moderate- severe fluid accumulation; measurably reduced branch general manager strength Moderate Malnutrition (in chronic illness) Energy Intake: <75% of estimated energy requirement for >1 month Weight Loss: 5%/1 month; 7.5%/3 months; 10%/6 months; 20%/1 year Other: mild body fat loss; mild muscle mass loss; mild fluid accumulation Severe Malnutrition (in chronic illness) Energy Intake: <75% of estimated energy requirement for >1 month Weight Loss: >5%/1 month; >7.5%/3 months; >10%/6 months; >20%/1 year Other: severe body fat loss; severe muscle mass loss; severe fluid accumulation ; measurably reduced branch general manager strength (This form is maintained as a part of the permanent medical record) 2014 [email or web address]. All Rights Reserved [email or web address] [facility]
[2019-10-21 16:37] LABS: Sodium 116 mmol/L (136-145)
[2019-10-21 20:34] LABS: Sodium 119 mmol/L (136-145)
--- NOTE | 2019-10-21 20:55 | PRG ---
DATE OF SERVICE: 10/21/2019 SUBJECTIVE: The patient was seen and examined and patient noted with the following vital signs. OBJECTIVE: VITAL SIGNS: Afebrile, temperature 98.2, pulse 60, respiratory rate of 20, O2 saturations of 99%, blood pressure 125/71. HEENT: Unremarkable. CARDIOVASCULAR: First and second heart sounds were heard. RESPIRATORY: Clear to auscultation. DIGESTIVE: Revealed a benign abdomen. EXTREMITIES: No peripheral edema. SKIN: No new gross rash. No peripheral lymphadenopathy. LABORATORY INVESTIGATION: Significant for sodium of 116 to 117. IMPRESSION: Hyponatremia in the context of syndrome of inappropriate antidiuretic hormone secretion. PLAN: 1. 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 Therefore, we will make adjustments and start this patient on hypertonic saline. We will start with 1.5% and adjust based on response of this patient. 2. If the patient does not show any significant response, we will consider starting this patient on 3% saline and transfer this patient to a more monitored environment like [facility] for closer monitoring of the sodium level. 3. Further management to be dependent on the clinical course. Job ID: [id number]
[2019-10-21] MEDS: Melatonin 3 MG TAB PO SCH (21:58)
[2019-10-21] MEDS: rOPINIRole HCl 1 MG TAB PO SCH (21:59)
[2019-10-22] MEDS: Polyethylene Glycol OPTH DROP 15 ML BOT EA EYE PRN (00:12)
[2019-10-22] MEDS: Sodium Chloride 256 MEQ in Sterile Water Injection 936 ML IV SCH (02:12)
[2019-10-22 05:41] LABS: #Basophils 0.1 thou/uL (0.0-0.2); #Eosinphils 0.5 thou/uL (0.0-0.7); #Lymphocytes 1.3 thou/uL (1.20-3.40); #Monocytes 0.6 thou/uL (0.11-0.59); #Neutrophils 4.2 thou/uL (1.40-6.50); %Basophils 0.9 % (0.0-1.0); %Eosinophils 8.1 % (0.0-10.0); %Lymphocytes 18.9 % (21.0-51.0); %Monocytes 9.1 % (0.0-10.0); Mean Corpuscular HGB CONC 35.2 g/dL (32.0-36.0); Mean Corpuscular Hemoglobin 31.5 pg (27.0-31.0); Mean Corpuscular Volume 89.5 fL (78.0-98.0); Mean Platelet Volume 6.6 fL (7.4-10.4); Platelet Count 253 thou/uL (130-400); RBC Distribution Width 13.5 % (11.5-14.5); Red Blood Cell (RBC) Count 3.18 mill/uL (4.70-6.10); White Blood Cell (WBC) Count 6.7 thou/uL (4.8-10.8)
[2019-10-22 05:54] LABS: Anion Gap 15 mmol/L (10-20); BUN (Urea Nitrogen) 14 mg/dL (8.4-25.7); Calc. Creatinine Clearance 51 mL/min (70-130); Calcium 8.6 mg/dL (7.8-10.44); Carbon Dioxide 15 mmol/L (23-31); Chloride 100 mmol/L (98-107); Estimated GFR-MDRD 90; Glucose 73 mg/dL (83-110); Potassium 4.6 mmol/L (3.5-5.1); Sodium 125 mmol/L (136-145)
[2019-10-22] MEDS: Ciprofloxacin 500 MG TAB PO SCH ×2 (06:00→21:36)
[2019-10-22] MEDS: Famotidine 20 MG TAB PO SCH ×2 (07:50→21:36)
[2019-10-22] MEDS ORDERED: Lidocaine Viscous Sol 2% 15 ml UD Cup FS SCH (08:15)
[2019-10-22] MEDS: Multivit, Therapeutic 1 TAB PO SCH (08:53)
[2019-10-22] MEDS: metFORMIN 500 MG TAB PO SCH ×2 (08:53→17:02)
[2019-10-22] MEDS: Finasteride 5 MG TAB PO SCH (08:53)
[2019-10-22] MEDS: Tamsulosin HCl 0.4 MG CAP PO SCH ×2 (08:54→21:36)
[2019-10-22] MEDS: Sulfameth/Trimethoprim DS 800-160mg TAB PO SCH ×2 (08:54→21:36)
[2019-10-22] MEDS: Docusate Calcium (SURFAK) 240 MG CAP PO SCH ×2 (08:54→21:36)
[2019-10-22] MEDS: Carvedilol 3.125 MG TAB PO SCH ×2 (08:54→21:36)
[2019-10-22] MEDS: Apixaban 2.5 MG TAB PO SCH ×2 (08:54→21:36)
[2019-10-22] MEDS: Ferrous Sulfate 325 MG TAB PO SCH ×2 (08:54→17:02)
[2019-10-22] MEDS: Polyethylene Glycol 3350 17 GM Packet PO SCH (08:55)
--- NOTE | 2019-10-22 19:35 | PRG ---
DATE OF SERVICE: 10/22/2019 SUBJECTIVE: The patient was seen and examined, today seems to be doing much better. Noted to be hemodynamically stable. OBJECTIVE: HEENT: Unremarkable. CARDIOVASCULAR SYSTEM: First and second heart sounds were heard. RESPIRATORY SYSTEM: Clear to auscultation. DIGESTIVE SYSTEM: Revealed a benign abdomen. EXTREMITIES: No peripheral edema. SKIN: No new gross rash. LYMPHATICS: No peripheral lymphadenopathy. LABORATORY INVESTIGATION: Significant for sodium has gone up to 125. IMPRESSION: 1. Hyponatremia in the context of syndrome of inappropriate antidiuretic hormone secretion, seems to be responding better to 1.5% saline. 2. Mild metabolic acidosis, likely reexpansion acidosis in the context of 1.5% saline infusion. PLAN: 1. Get his serum sodium stat to reevaluate the use of hyponatremia correction. The sodium is already tending towards 130 with discontinue of the current hypertonic saline. 2. Further management to be dependent on the clinical course. Job ID: [id number]
[2019-10-22 19:47] LABS: Sodium 126 mmol/L (136-145)
[2019-10-22] MEDS: Melatonin 3 MG TAB PO SCH (21:36)
[2019-10-22] MEDS: rOPINIRole HCl 1 MG TAB PO SCH (21:36)
[2019-10-23] MEDS: Sodium Chloride 256 MEQ in Sterile Water Injection 936 ML IV SCH (01:15)
[2019-10-23] MEDS: Ciprofloxacin 500 MG TAB PO SCH (05:05)
[2019-10-23 07:16] VITALS: BP 126/71; TEMP 97.7
[2019-10-23 08:11] LABS: Anion Gap 10 mmol/L (10-20); BUN (Urea Nitrogen) 11 mg/dL (8.4-25.7); Calc. Creatinine Clearance 54 mL/min (70-130); Calcium 8.3 mg/dL (7.8-10.44); Carbon Dioxide 20 mmol/L (23-31); Chloride 101 mmol/L (98-107); Estimated GFR-MDRD Greater than 90; Glucose 76 mg/dL (83-110); Potassium 4.1 mmol/L (3.5-5.1); Sodium 127 mmol/L (136-145)
[2019-10-23] MEDS: Ferrous Sulfate 325 MG TAB PO SCH (08:52)
[2019-10-23] MEDS: Finasteride 5 MG TAB PO SCH (08:52)
[2019-10-23] MEDS: metFORMIN 500 MG TAB PO SCH (08:52)
[2019-10-23] MEDS: Famotidine 20 MG TAB PO SCH (08:53)
[2019-10-23] MEDS: Multivit, Therapeutic 1 TAB PO SCH (08:53)
[2019-10-23] MEDS: Polyethylene Glycol 3350 17 GM Packet PO SCH (08:53)
[2019-10-23] MEDS: Docusate Calcium (SURFAK) 240 MG CAP PO SCH (08:53)
[2019-10-23] MEDS: Tamsulosin HCl 0.4 MG CAP PO SCH (08:53)
[2019-10-23] MEDS: Apixaban 2.5 MG TAB PO SCH (08:53)
[2019-10-23] MEDS: Sulfameth/Trimethoprim DS 800-160mg TAB PO SCH (08:53)
--- NOTE | 2019-10-23 19:08 | PRG ---
DATE OF SERVICE: 10/23/2019 SUBJECTIVE: The patient was noted with the following vital signs. OBJECTIVE: VITAL SIGNS: Afebrile, temperature 97.7, pulse 59, respiratory rate of 20, O2 saturation of 100%, blood pressure 126/71. HEENT: Unremarkable. CARDIOVASCULAR: First and second heart sounds were heard. RESPIRATORY: Clear to auscultation. DIGESTIVE SYSTEM: Revealed a benign abdomen with positive bowel sounds. EXTREMITIES: No peripheral edema. SKIN: No new gross rash. LYMPHATICS: No peripheral lymphadenopathy. LABORATORY INVESTIGATION: Significant for sodium of 127. IMPRESSION: Hyponatremia in the context of syndrome of inappropriate antidiuretic hormone secretion. PLAN: 1. Discontinue IV fluids. 2. From the renal standpoint, the patient is due for discharge. 3. The patient has been instructed on the need to eat more meat in order to show obvious sodium level. 4. Outpatient Nephrology consult is strongly recommended. Job ID: [id number]
== END 2019-10-23 16:13 | DRG 643 ==
LOC: ERS 19:22 → T4-A 23:14
PROVIDERS: ADMIT Specialist; ATTEND Specialist
DX: E22.2 Syndrome of inappropriate secretion of antidiuretic hormone (principal); L89.623 Pressure ulcer of left heel, stage 3; E43 Unspecified severe protein-calorie malnutrition; Z68.1 Body mass index [BMI] 19.9 or less, adult; N13.8 Other obstructive and reflux uropathy; E87.2 Acidosis; I10 Essential (primary) hypertension; I48.91 Unspecified atrial fibrillation; Z96.641 Presence of right artificial hip joint; E11.9 Type 2 diabetes mellitus without complications; D63.8 Anemia in other chronic diseases classified elsewhere; N40.1 Benign prostatic hyperplasia with lower urinary tract symptoms; R33.8 Other retention of urine; Z95.0 Presence of cardiac pacemaker; Z89.421 Acquired absence of other right toe(s); Z88.1 Allergy status to other antibiotic agents; R40.2362 Coma scale, best motor response, obeys commands, at arrival to emergency department; R40.2142 Coma scale, eyes open, spontaneous, at arrival to emergency department; R40.2252 Coma scale, best verbal response, oriented, at arrival to emergency department; Z91.14 Patient's other noncompliance with medication regimen; K59.09 Other constipation; Z79.01 Long term (current) use of anticoagulants; I49.5 Sick sinus syndrome
CPT/HCPCS: 36415; 71045; 80048; 80053; 81001; 81003; 82088; 82274; 82533; 82607; 82728; 83540; 83550; 83930; 83935; 84295; 84300; 84443; 84550; 84588; 85025; 87086; A4217

== ENCOUNTER 2020-12-08 13:35 | Emergency (ER) | payer MEDICARE, MEDICAID ==
[2020-12-08] MEDS ORDERED: Lidocaine 4% Cream 5 GM TUBE w/ Tegaderm ONE (13:53)
[2020-12-08] MEDS ORDERED: Boostrix 0.5 ML (Tdap) VIAL ONE (13:53)
[2020-12-08] MEDS ORDERED: Lidocaine 1% w/Epinephrine 1:100K 20 ML VIAL ONE (15:35)
[2020-12-08] MEDS ORDERED: Bacitracin 1 PK ONE (16:18)
== END 2020-12-08 17:09 | disposition home or self-care (01) ==
LOC: ERS 13:35
DX: S01.01XA Laceration without foreign body of scalp, initial encounter (principal); E11.9 Type 2 diabetes mellitus without complications; Z79.899 Other long term (current) drug therapy; Z79.84 Long term (current) use of oral hypoglycemic drugs; W05.0XXA Fall from non-moving wheelchair, initial encounter
CPT/HCPCS: 12013; 36416; 70450; 72125; 90471; 90715

== ENCOUNTER 2020-12-14 15:32 | Emergency (ER) | payer MEDICARE, MEDICAID ==
[2020-12-14 16:19] LABS: #Basophils 0.1 thou/uL (0.0-0.2); #Eosinphils 0.4 thou/uL (0.0-0.7); #Lymphocytes 1.6 thou/uL (1.20-3.40); #Monocytes 0.8 thou/uL (0.11-0.59); #Neutrophils 5.8 thou/uL (1.40-6.50); %Basophils 0.8 % (0.0-1.0); %Eosinophils 4.2 % (0.0-10.0); %Lymphocytes 18.2 % (21.0-51.0); %Monocytes 9.4 % (0.0-10.0); %Neutrophils 67.4 % (42.0-75.0); Mean Corpuscular HGB CONC 33.7 g/dL (32.0-36.0); Mean Corpuscular Hemoglobin 31.1 pg (27.0-31.0); Mean Corpuscular Volume 92.4 fL (78.0-98.0); Mean Platelet Volume 7.7 fL (7.4-10.4); Platelet Count 284 thou/uL (130-400); RBC Distribution Width 15.4 % (11.5-14.5); White Blood Cell (WBC) Count 8.5 thou/uL (4.8-10.8)
[2020-12-14 16:39] LABS: ALT (SGPT) 8 U/L (8-55); AST (SGOT) 16 U/L (5-34); Albumin 3.1 g/dL (3.4-4.8); Alkaline Phosphatase 130 U/L (40-110); Anion Gap 16 mmol/L (10-20); BUN (Urea Nitrogen) 26 mg/dL (8.4-25.7); Bilirubin, Total 0.7 mg/dL (0.2-1.2); Calc. Creatinine Clearance 0 mL/min (70-130); Calcium 8.6 mg/dL (7.8-10.44); Carbon Dioxide 19 mmol/L (23-31); Chloride 106 mmol/L (98-107); Globulin 3.4 g/dL (2.4-3.5); Glucose 209 mg/dL (83-110); Magnesium 1.4 mg/dL (1.6-2.6); Protein, Total 6.5 g/dL (5.8-8.1); Sodium 137 mmol/L (136-145)
[2020-12-14 17:36] LABS: Bilirubin Negative (Negative); Blood, Urine Negative (Negative); Clarity Clear (Clear); Glucose, Urine (Dipstick) Greater than 1000 mg/dL (Negative); Ketone, Urine Negative (Negative); Leukocyte 75 Leu/uL (Negative); Nitrite Negative (Negative); Protein, Urine (Dipstick) Negative (Neg-Trace); RBC/HPF 0-3 HPF (0-3); Specific Gravity, Urine 1.014 (1.002-1.036); Squamous Epithelial 0-3 HPF (0-3); Urobilinogen Normal mg/dL (Less than 2); pH, Urine 6.5 (5.0-9.0)
[2020-12-14 17:37] LABS: Bacteria/HPF Rare-Few HPF (None Seen)
== END 2020-12-14 19:57 | disposition home or self-care (01) ==
LOC: ERS 15:32
DX: N39.0 Urinary tract infection, site not specified (principal); R41.82 Altered mental status, unspecified; S40.812A Abrasion of left upper arm, initial encounter; S40.811A Abrasion of right upper arm, initial encounter; S00.93XA Contusion of unspecified part of head, initial encounter; L89.322 Pressure ulcer of left buttock, stage 2; L89.312 Pressure ulcer of right buttock, stage 2; L89.152 Pressure ulcer of sacral region, stage 2; E11.9 Type 2 diabetes mellitus without complications; Z79.01 Long term (current) use of anticoagulants; Z79.899 Other long term (current) drug therapy; Z79.84 Long term (current) use of oral hypoglycemic drugs; X58.XXXA Exposure to other specified factors, initial encounter
CPT/HCPCS: 36415; 80053; 81003; 81015; 83735; 84484; 85025; 87086; 93005

== ENCOUNTER 2021-01-17 14:17 | Emergency (ER) | payer OTHER ==
[2021-01-17 15:11] LABS: #Eosinphils 0.1 thou/uL (0.0-0.7); #Lymphocytes 1.4 thou/uL (1.20-3.40); #Monocytes 0.8 thou/uL (0.11-0.59); #Neutrophils 10.6 thou/uL (1.40-6.50); %Basophils 0.3 % (0.0-1.0); %Eosinophils 0.7 % (0.0-10.0); %Lymphocytes 10.5 % (21.0-51.0); %Monocytes 6.5 % (0.0-10.0); Hemoglobin 8.4 g/dL (14.0-18.0); Mean Corpuscular HGB CONC 33.6 g/dL (32.0-36.0); Mean Corpuscular Hemoglobin 31.5 pg (27.0-31.0); Mean Corpuscular Volume 93.7 fL (78.0-98.0); Mean Platelet Volume 7.3 fL (7.4-10.4); Platelet Count 366 thou/uL (130-400); RBC Distribution Width 15.7 % (11.5-14.5); Red Blood Cell (RBC) Count 2.68 mill/uL (4.70-6.10); White Blood Cell (WBC) Count 12.9 thou/uL (4.8-10.8)
[2021-01-17 15:19] LABS: Bilirubin Negative (Negative); Blood, Urine Trace (Negative); Clarity Extra Turbid (Clear); Glucose, Urine (Dipstick) Normal (Negative); Ketone, Urine Negative (Negative); Leukocyte 500 Leu/uL (Negative); Nitrite Negative (Negative); Protein, Urine (Dipstick) 300 mg/dL (Neg-Trace); Specific Gravity, Urine 1.013 (1.002-1.036); Squamous Epithelial None Seen HPF (0-3); Urobilinogen Normal mg/dL (Less than 2); WBC/HPF Greater than 50 HPF (0-3)
[2021-01-17 15:26] LABS: ALT (SGPT) 9 U/L (8-55); AST (SGOT) 13 U/L (5-34); Albumin 3.2 g/dL (3.4-4.8); Alkaline Phosphatase 85 U/L (40-110); Anion Gap 16 mmol/L (10-20); BUN (Urea Nitrogen) 45 mg/dL (8.4-25.7); Bilirubin, Total 0.6 mg/dL (0.2-1.2); Calc. Creatinine Clearance 0 mL/min (70-130); Calcium 9.1 mg/dL (7.8-10.44); Carbon Dioxide 13 mmol/L (23-31); Chloride 109 mmol/L (98-107); Globulin 3.4 g/dL (2.4-3.5); Glucose 70 mg/dL (83-110); Lipase 107 U/L (8-78); Potassium 4.6 mmol/L (3.5-5.1); Protein, Total 6.6 g/dL (5.8-8.1); Sodium 133 mmol/L (136-145)
[2021-01-17 15:27] LABS: Bacteria/HPF 4+ HPF (None Seen)
[2021-01-17] MEDS ORDERED: Vancomycin 1 GM/200 ML BAG ONE (18:21)
== END 2021-01-17 20:14 | disposition home or self-care (01) ==
LOC: ERS 14:17
DX: N30.90 Cystitis, unspecified without hematuria (principal); N17.9 Acute kidney failure, unspecified; I11.0 Hypertensive heart disease with heart failure; I50.9 Heart failure, unspecified; E11.9 Type 2 diabetes mellitus without complications; J43.9 Emphysema, unspecified; N40.0 Benign prostatic hyperplasia without lower urinary tract symptoms; I48.91 Unspecified atrial fibrillation; K21.9 Gastro-esophageal reflux disease without esophagitis; M19.90 Unspecified osteoarthritis, unspecified site; G30.9 Alzheimer's disease, unspecified; F02.80 Dementia in other diseases classified elsewhere, unspecified severity, without behavioral disturbance, psychotic disturbance, mood disturbance, and anxiety; Z79.4 Long term (current) use of insulin; Z79.899 Other long term (current) drug therapy
CPT/HCPCS: 36415; 71045; 74176; 80053; 81003; 81015; 83605; 83690; 83880; 84484; 85025; 87040; 87077; 87086; 87186; 93005; 96365; 96367; J1956; J3370